=== PATIENT | male | born 1950 | race Caucasian/White ===

== ENCOUNTER 2019-01-01 10:00 | Day surgery (SDC) | payer OTHER ==
[~2019-01-01] VITALS: Ht 160 cm; Wt 73.1 kg
[2019-01-01] MEDS ORDERED: ASPI81TA52 PO (10:37)
[2019-01-01] MEDS ORDERED: AMLO2.5T78 PO (10:37)
[2019-01-01] MEDS ORDERED: ATOR40TA68 PO (10:37)
[2019-01-01] MEDS ORDERED: CLOP75TA27 PO (10:38)
[2019-01-01] MEDS ORDERED: FOLI-49 PO (10:38)
[2019-01-01] MEDS ORDERED: FURO20TA3 PO (10:38)
[2019-01-01] MEDS ORDERED: ESCI5TAB PO (10:38)
[2019-01-01] MEDS ORDERED: GABA300C16 PO (10:39)
[2019-01-01] MEDS ORDERED: LOSA50TA14 PO (10:40)
[2019-01-01] MEDS ORDERED: LISI40TA3 PO (10:40)
[2019-01-01] MEDS ORDERED: RANI150T5 PO (10:41)
[2019-01-01] MEDS ORDERED: METF500T24 PO (10:41)
[2019-01-01 10:42] VITALS: Ht 160 cm; Wt 73.1 kg
[2019-01-01] MEDS ORDERED: TEMA30CA PO (10:42)
[2019-01-01] MEDS ORDERED: TRAM50TA PO (10:42)
[2019-01-01 10:44] VITALS: BP 141/65; PULSE 57; RESP 16
[2019-01-01] MEDS ORDERED: ROPIVACAINE 0.5 % 30 ML VIAL ONE (11:20)
[2019-01-01] MEDS ORDERED: POLYMYXIN/BACITRACIN 1L IRRIG ONE (11:20)
== END 2019-01-01 13:00 | disposition home or self-care (01) ==
LOC: SDS 10:00
PROVIDERS: ATTEND Orthopaedic Surgery
DX: M13.871 Other specified arthritis, right ankle and foot (principal); Z53.8 Procedure and treatment not carried out for other reasons; Z79.02 Long term (current) use of antithrombotics/antiplatelets; I11.0 Hypertensive heart disease with heart failure; I50.32 Chronic diastolic (congestive) heart failure; E78.2 Mixed hyperlipidemia; E11.36 Type 2 diabetes mellitus with diabetic cataract; E11.51 Type 2 diabetes mellitus with diabetic peripheral angiopathy without gangrene; Z86.73 Personal history of transient ischemic attack (TIA), and cerebral infarction without residual deficits; Z87.891 Personal history of nicotine dependence
CPT/HCPCS: 80053; 82962; 85025; 85610; 85730; J2795

== ENCOUNTER 2019-01-09 05:37 | Inpatient (IN) | payer OTHER ==
[2019-01-09] VITALS (28 sets, daily range): BP systolic 73–133; BP diastolic 43–62; PULSE 60–84; RESP 16–27; Ht 165.1 cm; Wt 72.2 kg
[~2019-01-09] VITALS: Ht 165.1 cm; Wt 72.2 kg
[~2019-01-09 05:37] MED LIST: AMLO2.5T78 PO; ASPI81TA52 PO; ATOR40TA68 PO; CLOP75TA27 PO; ESCI5TAB PO; FOLI-49 PO; FURO20TA3 PO; GABA300C16 PO; LISI40TA3 PO; LOSA50TA14 PO; METF500T24 PO; RANI150T5 PO; TEMA30CA PO; TRAM50TA PO
[2019-01-09] MEDS ORDERED: DESFLURANE 15 MIN ONE (07:00)
[2019-01-09] MEDS ORDERED: HYDR-3609 ORAL (07:16)
--- NOTE | 2019-01-09 07:20 | PREAC ---
Date/Time of Note Date/Time of Note DATE: 01/09/19 TIME: 07:17 Anesthesia Eval and Record Evaluation Time Pre-Procedure Interview DATE: 01/09/19 TIME: 07:17 Age 68 Sex male NPO: 8 hrs (arthritis) Preoperative diagnosis right ankle arthritis Planned procedure r ankle arthrodesis graft Past Medical History Past Medical History: Includes Cardio: HTN, CAD, CABG Endo: Diabetes Surgery & Anesthesia Issues No known issue Meds Anticoagulation: Yes (stopped 8 days ago) Beta Luke within 24 hr: No Reason Beta Luke not given: Pt. not on B-Luke Reported Medications Hydrocodone/Acetaminophen (Hydrocodone-Acetamin 10-325 mg) 1 Each Tablet, 1 TAB ORAL Q6 PRN for PAIN LEVEL 7-10 01/09/19 Tramadol Hcl* (Ultram*) 50 Mg Tablet, 50 MG PO Q6H PRN for PAIN, TAB 01/01/19 Temazepam* (Temazepam*) 30 Mg Capsule, 30 MG PO HS PRN for INSOMNIA, CAP 01/01/19 Ranitidine Hcl* (Ranitidine Hcl*) 150 Mg Tablet, 150 MG PO Q12, #60 TAB 01/01/19 Metformin Hcl* (Metformin Hcl*) 500 Mg Tablet, 500 MG PO WITH BREAKFAST DINNE, #60 TAB 01/01/19 Losartan Potassium* (Losartan Potassium*) 50 Mg Tablet, 50 MG PO BID, TAB 01/01/19 Lisinopril* (Lisinopril*) 40 Mg Tablet, 40 MG PO DAILY, #30 TAB 01/01/19 Gabapentin* (Gabapentin*) 300 Mg Capsule, 300 MG PO TID, #90 CAP 01/01/19 Furosemide* (Furosemide*) 20 Mg Tablet, 20 MG PO DAILY, #60 TAB 01/01/19 Folic Acid* (Folic Acid*) 1 Mg Tablet, 1 MG PO DAILY, TAB 01/01/19 Escitalopram Oxalate* (Lexapro*) 5 Mg Tablet, 5 MG PO DAILY, #30 TAB 01/01/19 Clopidogrel Bisulfate (Clopidogrel) 75 Mg Tablet, 75 MG PO DAILY, #30 TAB 01/01/19 Atorvastatin* (Atorvastatin*) 40 Mg Tablet, 40 MG PO QHS, #30 TAB 01/01/19 Aspirin (Low Dose Aspirin) 81 Mg Tablet.dr, 81 MG PO DAILY, #30 TAB 4/3/19 Amlodipine Besylate* (Amlodipine Besylate*) 2.5 Mg Tablet, 2.5 MG PO DAILY, #30 TAB 01/01/19 Meds reviewed: Yes Allergies Coded Allergies: No Known Allergy (Unverified , 01/09/19) Allergies Reviewed: Yes Labs/Studies Labs Reviewed: Reviewed by anesthesiologist Result Diagram: 01/09/19 0600 01/09/19 0600 Laboratory Tests 01/09/19 06:00 test: N/A Studies: ECG (sr), CXR (nl) Pre-procedure Exam Last vitals Vital Signs Date Temp Pulse Resp B/P (MAP) Pulse Ox O2 O2 Flow FiO2 Time Delivery Rate 01/09/19 97.1 60 18 107/61 99 Room Air 06:16 (76) Airway: Adequate mouth opening Mallampati: Mallampati I Teeth: Abnormal (denture) Lung: Normal Heart: Normal ASA Physical Status ASA physical status: 3 Emergency: None Planned Anesthetic General/MAC: ETT Nerve block: Sciatic (right) Planned Pain Management Parenteral pain med Pre-operative Attestations Prior to commencing anesthesia and surgery, the patient was re-evaluated, there was verification of: *The patient's identity *The results of appropriate recent lab work and preoperative vital signs *The above evaluation not changing prior to induction *Anesthetic plan, risk benefits, alternative and complications discussed with patient/family; questions answered; patient/family understands, accepts and wishes to proceed. CHINMAY GASTON MD Jan 09, 2019 07:20
[2019-01-09] MEDS ORDERED: ROCURONIUM 50 MG INJ ONE ×2 (07:23→11:24)
[2019-01-09] MEDS ORDERED: MIDAZOLAM 1 MG/ML 2 ML INJ ONE (07:23)
[2019-01-09] MEDS ORDERED: CEFAZOLIN 1 GM INJ ONE (07:23)
[2019-01-09] MEDS ORDERED: PROPOFOL 20 ML ONE (07:23)
[2019-01-09] MEDS ORDERED: METOCLOPRAMIDE 10 MG INJ ONE (07:24)
[2019-01-09] MEDS ORDERED: ONDANSETRON 4 MG INJ ONE (07:24)
[2019-01-09] MEDS ORDERED: ROPIVACAINE 0.5 % 30 ML VIAL ONE ×2 (07:24→07:32)
[2019-01-09] MEDS ORDERED: FENTAnyl 50 MCG/ML VIAL ONE (07:26)
[2019-01-09] MEDS ORDERED: POLYMYXIN/BACITRACIN 1L IRRIG ONE ×2 (07:31→09:45)
--- NOTE | 2019-01-09 07:43 | HPN ---
Date/Time of Note Date/Time of Note DATE: 01/09/19 TIME: 07:42 Interval H&P Admission Note Pt. seen H&P reviewed: No system changes Patient has been off Plavix for 1 week YOSI MARAVILLA MD Jan 09, 2019 07:43
[2019-01-09] MEDS ORDERED: CEFAZOLIN 1 GM INJ IV SCH (08:00)
[2019-01-09] MEDS ORDERED: DIPHENHYDRAMINE 25 MG CAP PO PRN (08:00)
[2019-01-09] MEDS ORDERED: SODIUM CL BACTERIOSTATIC 30 ML INJ ONE (08:03)
[2019-01-09] MEDS ORDERED: HEPARIN 1000 UNITS/ML 10 ML INJ ONE (08:04)
[2019-01-09] MEDS ORDERED: EPHEDrine SULFATE 50 MG/5 ML SYG IV PRN (08:30)
[2019-01-09] MEDS ORDERED: hydrALAzine 20 MG INJ IV PRN (08:30)
[2019-01-09] MEDS ORDERED: LABETALOL HCL 20MG INJ IV PRN (08:30)
[2019-01-09] MEDS ORDERED: MEPERIDINE 25 MG INJ IV PRN (08:30)
[2019-01-09] MEDS ORDERED: ALBUTEROL 0.083% (NEB) 2.5 MG/3 ML AMP HHN PRN (08:30)
[2019-01-09] MEDS ORDERED: ONDANSETRON 4 MG INJ IV PRN (08:30)
[2019-01-09] MEDS ORDERED: DIPHENHYDRAMINE 50 MG INJ IV PRN (08:30)
[2019-01-09] MEDS ORDERED: OXYCODONE/ACETAMINOPHEN (5/325) TAB PO PRN ×2 (08:30)
[2019-01-09] MEDS ORDERED: FENTAnyl 50 MCG/ML VIAL IV PRN ×3 (08:30)
[2019-01-09] MEDS ORDERED: HYDROmorphONE 1 MG/5 ML IV SYRINGE IV PRN ×3 (08:30)
[2019-01-09] MEDS ORDERED: HYDROmorphONE 2 MG/ML SYG ONE (08:52)
[2019-01-09] MEDS ORDERED: hydrALAzine 20 MG INJ ONE (10:53)
[2019-01-09] MEDS ORDERED: EPHEDrine 50 MG INJ ONE ×2 (11:36→11:43)
[2019-01-09] MEDS ORDERED: CHOLECALCIFEROL 2,000 UNIT CAP PO SCH (12:30)
[2019-01-09] MEDS: GABAPENTIN 300 MG CAP PO SCH ×2 (14:22→21:04)
[2019-01-09] MEDS: ASCORBIC ACID 500 MG TAB PO SCH (14:23)
[2019-01-09] MEDS: oxyCODONE 5 MG TAB PO SCH ×3 (14:23→21:00)
[2019-01-09] MEDS: CHOLECALCIFEROL 1,000 UNIT TAB PO SCH (14:50)
[2019-01-09] MEDS ORDERED: DEXTROSE 50% 50 ML SYRINGE IV PRN ×2 (15:00)
[2019-01-09] MEDS ORDERED: GLUCAGON 1 MG INJ IM PRN (15:00)
[2019-01-09] MEDS ORDERED: GLUCOSE GEL 15 GRAM TUBE PO PRN ×2 (15:00)
[2019-01-09] MEDS ORDERED: GLUCOSE GEL 15 GRAM TUBE BUCCAL PRN (15:00)
[2019-01-09] MEDS: CEFAZOLIN 1 GM/50 ML (PMX) 50 ML IVPB SCH ×2 (15:21→23:49)
[2019-01-09] MEDS: ASPIRIN (EC) 81 MG TAB PO SCH (15:22)
[2019-01-09] MEDS: HYDROmorphONE 1 MG/ML SYG IV PRN ×2 (15:23→21:03)
[2019-01-09] MEDS ORDERED: ZOLPIDEM 5 MG TAB PO PRN (15:30)
[2019-01-09] MEDS: ONDANSETRON 4 MG INJ IV PRN (15:30)
--- NOTE | 2019-01-09 15:49 | CONS ---
DATE OF ADMISSION: 01/09/2019 DATE OF CONSULTATION: 01/09/2019 INDICATION FOR ADMISSION: Elective right ankle arthrodesis with autograft for severe right ankle arthritis. HISTORY OF PRESENTING COMPLAINT: A 68-year-old male with a past medical history of hypertension, coronary artery disease status post CABG in the past, congestive heart failure as well as diabetes, who was brought in for an elective right ankle arthrodesis by orthopedic surgery due to severe right ankle osteoarthritis. We are being consulted for management of his medical problems. At this time, the patient tolerated surgery very well. Vitals are stable, but he is complaining of some left-sided chest pain. The patient also has a hx of CAD s/p CABG. He also has a history of anxiety. He has no fever, nausea, cough. No shortness of breath. Denies abdominal pain, hematuria, melenotic stools or dysuria. He was in his normal state of health prior to admission. PAST MEDICAL HISTORY: 1. Coronary artery disease status post CABG. The patient is also on Plavix, which tells me he probably has a stent. 2. Dyslipidemia. 3. Hypertension. 4. Diabetes mellitus. PAST SURGICAL HISTORY: He had foot surgery. ALLERGIES: NO KNOWN DRUG ALLERGIES. SOCIAL HISTORY: He did drink a lot of alcohol in the past but has quit many years ago. Occasional tobacco use. Denies illicit drug use. PHYSICAL EXAMINATION: VITAL SIGNS: Temperature 98.2, pulse is 72, respirations 17, blood pressure 103/47, saturations 100% on oxygen via nasal cannula at 2 liters per minute. GENERAL: Alert, oriented, in no distress. HEENT: Head is normocephalic. Pupils are equal and reactive. NECK: Supple. CHEST: Clear. Diminished breath sounds bilaterally. CARDIOVASCULAR: S1 and S2. No added sounds or murmurs. ABDOMEN: Soft, nontender, nondistended. EXTREMITIES: Right lower extremity is encased and bandaged all the way from his toes to the mid leg and splint. Left lower extremity is unremarkable. SKIN: No other skin findings. LABORATORY VALUES: Complete metabolic profile was completely normal. Hematology has mild anemia of 11 that is not really impressive. Urinalysis is not suggestive of UTI. Coag profile is unremarkable. IMAGING: We have an ankle x-ray from the surgery. ASSESSMENT: A 68-year-old male status post elective right ankle arthrodesis for severe right osteoarthritis for whom we are consulted for management of his medical problems: 1. Chest pain, left-sided. I doubt that this is cardiac in origin, but just to be on the safe side based on his history, I will do x-ray. I will also get EKG. I will give him some morphine to see how he does. Continue intranasal oxygen at this time. We may consider just doing a 2D echo to see his cardiac status. 2. History of coronary artery disease, status CABG, also on Plavix therapy. Continue home aspirin and Plavix. Nitroglycerin also as needed. 3. Hypertension with good control. Continue home meds. 4. Chronic depression and anxiety. Continue home Lexapro. 5. History of congestive heart failure. Continue home Lasix and all of his meds. The patient is also on losartan. 6. Diabetes mellitus type 2. Continue sliding scale insulin, diabetic diet and titrate medications as indicated. Further interventions will depend on the patient's clinical course. I have discussed this plan of care with the patient and his family at bedside. Questions have been answered. We will follow the patient with you. Dictated By: JORGE BOLANOS MD BA/NTS Conf#: [id number] DID#: [id number] CC: YOSI MARAVILLA MD;*EndCC* MTDD
--- NOTE | 2019-01-09 17:13 | PAC ---
Date/Time of Note Date/Time of Note DATE: 01/09/19 TIME: 17:12 Post-Anesthesia Notes Post-Anesthesia Note Last documented vital signs Vital Signs Date Temp Pulse Resp B/P (MAP) Pulse Ox O2 O2 Flow FiO2 Time Delivery Rate 01/09/19 98.2 72 17 103/47 100 Nasal 13:17 (65) Cannula 01/09/19 98.2 12:12 Activity: WNL Respiratory function: WNL Cardiovascular function: WNL Mental status: Baseline Pain reasonably controlled: Yes Hydration appropriate: Yes Nausea/Vomiting absent: No CHINMAY GASTON MD Jan 09, 2019 17:13
--- NOTE | 2019-01-09 17:20 | QN ---
Documentation Job number: [id number] YOSI MARAVILLA MD Jan 09, 2019 17:20
[2019-01-09] MEDS: metFORMIN 500 MG TAB PO SCH (17:54)
[2019-01-09] MEDS: ACCU-CHEK XX SCH ×2 (17:54→21:16)
[2019-01-09] MEDS: INSULIN ASPART [NOVOLOG] 3 ML PEN SC SCH ×2 (17:57→21:16)
[2019-01-09] MEDS ORDERED: NITROGLYCERIN (SL) 0.4 MG TAB SL PRN (20:00)
[2019-01-09] MEDS: ATORVASTATIN 40 MG TAB PO SCH (21:04)
[2019-01-09] MEDS: RANITIDINE 150 MG TAB PO SCH (21:04)
[2019-01-09] MEDS: LOSARTAN 50 MG TAB PO SCH (21:04)
--- NOTE | 2019-01-10 00:31 | CONS ---
DATE OF ADMISSION: 01/09/2019 DATE OF CONSULTATION: 01/09/2019 REASON FOR CONSULTATION: Chest pain, assess for acute coronary syndrome. REQUESTING PHYSICIAN: Dr. Wilder, from the hospital service. HISTORY OF PRESENT ILLNESS: The patient is a very pleasant 68-year-old male with history of coronary artery disease, status post coronary artery bypass graft surgery in 2017, dyslipidemia, hypertension , diabetes mellitus. 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 Postoperatively, the patient had complaints of left-sided chest pain, describes a pressure-like sensation and subsequently has been admitted to the floor and a cardiac consultation was requested. The patient currently states chest pain is improved. PAST MEDICAL HISTORY: As above in HPI. MEDICATIONS CURRENTLY IN HOSPITAL: 1. Norvasc 2.5 mg. 2. Lexapro 5 mg daily. 3. Folic acid 1 mg daily. 4. Lasix 20 daily. 5. Lipitor 40 mg at bedtime. 6. Cozaar 50 mg p.o. b.i.d. 7. Zantac 150 mg p.o. q. 12h. 8. Insulin sliding scale. 9. Metformin 500 mg b.i.d. 10. Cefazolin q.8h. IV. 11. Ambien. 12. Aspirin 81 mg daily. 13. Vitamin C and D. 14. Oxycodone 5 q.4h. 15. Gabapentin 300 mg p.o. t.i.d. ALLERGIES: NO KNOWN DRUG ALLERGIES. SOCIAL HISTORY: No tobacco, ETOH or illicit drug use. FAMILY HISTORY: No history of sudden cardiac or early CAD. REVIEW OF SYSTEMS: As above in HPI. CONSTITUTIONAL: No fevers, chills. PULMONARY: No current shortness of breath. CARDIOVASCULAR: Chest pain, now resolved. GASTROINTESTINAL: No vomiting. GENITOURINARY: No hematuria. MUSCULOSKELETAL: Degenerative joint disease. Status post right ankle arthrodesis. PSYCHIATRIC: Positive history of depression, anxiety by medications. NEUROLOGICAL: No documented CVA. ENDOCRINE: Diabetes mellitus. PHYSICAL EXAMINATION: VITAL SIGNS: Temperature of 97.7, blood pressure most recently 106/52, pulse 77, respiratory rate 18 , satting 98% on 2 liters. GENERAL: The patient is alert, awake, in no acute distress. NECK: JVP approximately 8 to 9 cm of water. CHEST: Fair air movement throughout. HEART: Regular rate and rhythm. Normal S1, S2, I/ systolic murmur, nondisplaced PMI. ABDOMEN: Positive bowel sounds, soft. EXTREMITIES: No significant left lower extremity pitting edema. 1+ pulses bilateral posterior tibia l. LABORATORIES: As above in HPI with most recently white count 10.6, hemoglobin 13.6, platelet count 2 15. Sodium 143, potassium 4.3, creatinine 0.8, BUN 20, AST 22, ALT 27. INR of 1. UA borderline. IMAGING STUDIES: The patient underwent an ankle x-ray, which revealed intraoperative imaging of the right ankle with images demonstrated fusion of the tibiotalar joint with anterior plate and multiple screws. ECG: No electrocardiograms for my review at this time. IMPRESSION: 1. Chest pain, assess for acute coronary syndrome with the patient's chest pain resolved at this lena e. 2. Coronary artery disease, status post coronary artery bypass graft surgery in 2017. 3. Hypertension, under reasonable control. In fact, lowering dizziness and weakness. 4. Postoperative status post ankle arthrodesis. 5. Diabetes mellitus. 6. Psychiatric disorder. 7. Dyslipidemia. RECOMMENDATIONS: 1. At this time, we would completely rule out for myocardial infarction to ensure the patient's ches t pain was not due to an acute coronary syndrome, acute myocardial infarction. 2. We would check serial EKGs. EKG now, EKG in morning, EKG for any complaints of chest pain or velasquez nge in rhythm. 3. We will check a 2D echo for switch to further assess the patient's ejection fraction, wall motion and major abnormalities. 4. Continue the patient's aspirin at this time, resume for prevention of cardiovascular events and d iscontinue the patient's baseline antihypertensives as tolerated at this time with Cozaar and Norvasc possible need to decrease dose and continue the patient's Lasix for now following closely. We will check a BNP to further assess current volume status and continue the patient's statin and adjust it a ccording to a fasting lipid panel, and recheck. 5. Follow the patient's blood sugars closely. 6. Continue the patient's prophylactic antibiotics. 7. Pain control. Thank you for allowing me to take part in the care of this patient. I will continue to follow along very closely with you, with recommendations to be made as the patient progresses through his [facility]. Dictated By: HARSH MAYA/CRISTOBAL Conf#: [id number] DID#: [id number] CC: TITO WILDER; JORGE BOLANOS MD; YOSI MARAVILLA MD;*EndCC*
[2019-01-10] MEDS: oxyCODONE 5 MG TAB PO SCH ×6 (01:34→21:00)
[2019-01-10] MEDS: ACCU-CHEK XX SCH ×5 (01:39→21:00)
[2019-01-10] MEDS: HYDROmorphONE 1 MG/ML SYG IV PRN ×5 (04:02→21:11)
--- NOTE | 2019-01-10 07:14 | OPR ---
DATE OF OPERATION: SURGEON: Yosi Titus MD FINANCIAL CONSULTANT: MARICEL Rivera PREOPERATIVE DIAGNOSIS: Right ankle arthritis. POSTOPERATIVE DIAGNOSIS: Right ankle arthritis. PROCEDURES: 1. Right iliac crest bone autograft harvest. 2. Right iliac crest bone marrow aspirate concentrate harvest. 3. Right ankle arthrodesis with both allograft and autograft. 4. Placement of amniotic membrane 5. Application of incisional wound VAC is ANESTHESIA TYPE: General with popliteal block. ANESTHESIOLOGIST: Allie Melo MD TOURNIQUET TIME: 130 minutes at 250 mmHg. IMPLANTS: An Arthrex anterior arthrodesis plate with ArthroCell and AlloSync and amnion as well as the Arthrex Yassine bone marrow aspirate concentrate. COMPLICATIONS: None. INDICATIONS: The patient is 66-year-old gentleman with significant pain to the right ankle with significant osteoarthritis of the ankle joint that is posttraumatic in nature. The patient understood the risks and benefits of surgery and that he possibly needs surgery in the future. Risk Note: Patient was explained the risks and benefits of surgery and the patient's lower elwha language including not limited to infection, bleeding, injury to blood vessels, nerves, ligaments or tendons. Risks of anesthesia, deep vein thrombosis and need for reduce future surgery. Patient acknowledged these risk by signing the surgical consent form. DESCRIPTION OF PROCEDURE: The patient was met in the preoperative holding area and the correct operative extremity was marked and confirmed with both the patient and consent. The patient was brought to the operative theater and placed supine on the operative table, given preoperative antibiotics and preoperative anesthesia. The patient was then prepped and draped in the normal sterile fashion. A timeout was taken and all parties in the room agreed this was the correct patient, extremity and procedure. Attention was then turned to the iliac crest in which the incision made just proximal to the ASIS and care was taken to avoid any injury to the neurovascular structures. A bone marrow aspirate concentrate was taken using a Jamshidi. Approximately 60 mL were taken and sent off for centrifugation. I then using the Acumed bone graft harvester size 8 and took a substantial amount of iliac crest bone autograft and iliac crest for future use in the ankle. The wound was irrigated and then closed with 4-0 Monocryl and Steri-Strips and Tegaderm. Attention was then turned to the right ankle. Incision was made in typical anterior fashion beginning at interval between the tibialis anterior and hallucis longus. Incision was brought down anteriorly and extensor hallucis longus sheath was then incised. The tibialis anterior was retracted medially and the neurovascular structures were protected and retracted and protected throughout the case. Subsequently at this time, substantial osteoarthritis was seen throughout the ankle and synovitis sent for pathology. Loose bodies were removed. The ankle joint was then debrided of all cartilage and denuded thoroughly both medial and lateral gutters as over the tibial plafond and the talar dome. Once this was done, it was then irrigated thoroughly and then packed with a 2-0 drill bit and then packed with both allograft and autograft mixed with bone marrow aspirate concentrate and then compressed and held in compression both in neutral as well as dorsiflexion, plantar flexion as well as slight valgus and slight external rotation. The anterior plate was then placed and fixated and locked locked distally first, followed by fixed the oblong hole proximally for compression, followed by a lag screw home run screw from anterior to posterior, followed by locking screws over the tibia. It was shown to be excellent compression both in AP, oblique and lateral position and then the wound was irrigated and closed in layers with the amniotic membrane placed over the ankle followed by secondary closure with 2-0 Vicryl, followed by amniotic membrane placement followed by subdermal closure with 3-0 Monocryl followed by skin closure. There was tensionless with a 3-0 nylon in vertical mattress fashion. The wound was then dressed with a Prevena wound VAC and placed in a well-padded short leg splint in the neutral position. At the end of the case, all sponge and needle counts were correct. The patient was taken to PACU in a stable condition. The patient will be nonweightbearing for at least the next 6 to 8 weeks and will begin DVT prophylaxis for the next 6 weeks per the primary care and cardiology service. Dictated By: YOSI BYERS/CRISTOBAL Conf#: [id number] DID#: [id number] MTDD
[2019-01-10 07:25] VITALS: BP 122/77; PULSE 85; RESP 18
[2019-01-10] MEDS: INSULIN ASPART [NOVOLOG] 3 ML PEN SC SCH ×4 (07:50→21:00)
[2019-01-10] MEDS: CEFAZOLIN 1 GM/50 ML (PMX) 50 ML IVPB SCH ×2 (08:16→15:40)
[2019-01-10] MEDS: RANITIDINE 150 MG TAB PO SCH ×2 (08:32→21:08)
[2019-01-10] MEDS: metFORMIN 500 MG TAB PO SCH ×2 (08:32→17:54)
[2019-01-10] MEDS: LOSARTAN 50 MG TAB PO SCH ×2 (08:33→21:23)
[2019-01-10] MEDS: ASCORBIC ACID 500 MG TAB PO SCH (08:33)
[2019-01-10] MEDS: GABAPENTIN 300 MG CAP PO SCH ×3 (08:33→21:07)
[2019-01-10] MEDS: ASPIRIN (EC) 81 MG TAB PO SCH (08:33)
[2019-01-10] MEDS: ESCITALOPRAM 10 MG TAB PO SCH (08:48)
[2019-01-10] MEDS: FOLIC ACID 1 MG TAB PO SCH (08:48)
[2019-01-10] MEDS: CHOLECALCIFEROL 1,000 UNIT TAB PO SCH (08:48)
[2019-01-10] MEDS: AMLODIPINE 2.5 MG TAB PO SCH (08:49)
[2019-01-10] MEDS: FUROSEMIDE 20 MG TAB PO SCH (08:49)
[2019-01-10] MEDS ORDERED: CLOPIDOGREL 75 MG TAB PO SCH (09:00)
[2019-01-10] MEDS: ONDANSETRON 4 MG INJ IV PRN (10:23)
--- NOTE | 2019-01-10 11:16 | PN ---
Date/Time of Note Date/Time of Note DATE: 01/10/19 TIME: 11:07 Assessment/Plan VTE Prophylaxis Risk score (from Nsg)>0 risk: 2 SCD applied (from Nsg): Yes Pharmacological prophylaxis: heparin Lines/Catheters IV Catheter Type (from Nrsg): Peripheral IV Assessment/Plan Hospital Course A 68-year-old male status post elective right ankle arthrodesis for severe right osteoarthritis for whom we are consulted for management of his medical problems: 1. Chest pain, left-sided: resolved -ekg reviewed, echo report pending, no further intervention for now, likely anxiety related 2. History of coronary artery disease, status CABG, was also on Plavix therapy. -Continue home aspirin only for now, per Ortho, can resume Plavix 5 days after surgery. Nitroglycerin also as needed. 3. Hypertension with good control. Continue home meds. 4. Chronic depression and anxiety. Continue home Lexapro. 5. History of congestive heart failure. Continue home Lasix and all of his meds. The patient is also on losartan. 6. Diabetes mellitus type 2. Continue sliding scale insulin, diabetic diet and titrate medications as indicated. 7. Hypomagnesemia: replete 8. Urinary retention: post op, patient did eventually void on his own, continue monitoring for now DVT Prophylaxis : Patient was on dual antiplatelet therapy for coronary artery disease, but is currently only on baby aspirin. He is high risk for thrombus formation. We will add heparin for DVT prophylaxis. Further interventions will depend on the patient's clinical course. We will follow the patient with you. Result Diagram: 01/10/19 0439 01/10/19 0439 Results 24hrs Laboratory Tests Test 01/09/19 17:50 01/09/19 21:14 01/10/19 00:25 01/10/19 01:38 Bedside Glucose 157 182 127 Troponin I < 0.012 Test 01/10/19 04:20 01/10/19 04:27 01/10/19 04:39 01/10/19 08:30 Troponin I < 0.012 Hemoglobin A1c 6.5 H White Blood Count 9.5 Red Blood Count 3.73 #L Hemoglobin 10.9 L Hematocrit 33.9 L Mean Corpuscular 90.9 Volume Mean Corpuscular 29.2 Hemoglobin Mean Corpuscular 32.2 Hemoglobin Concent Red Cell 13.3 Distribution Width Platelet Count 182 Mean Platelet Volume 10.3 Immature 0.400 Granulocytes % Neutrophils % 72.0 Lymphocytes % 13.3 L Monocytes % 13.4 H Eosinophils % 0.6 Basophils % 0.3 Nucleated Red Blood 0.0 Cells % Immature 0.040 H Granulocytes # Neutrophils # 6.8 Lymphocytes # 1.3 Monocytes # 1.3 H Eosinophils # 0.1 Basophils # 0.0 Nucleated Red Blood 0.0 Cells # Sodium Level 137 Potassium Level 4.0 Chloride Level 104 Carbon Dioxide Level 26 Anion Gap 7 Blood Urea Nitrogen 18 Creatinine 0.69 Est Glomerular > 60 Filtrat Rate mL/min Glucose Level 130 Calcium Level 8.5 Phosphorus Level 4.0 Magnesium Level 1.2 L Triglycerides Level 47 Cholesterol Level 75 L LDL Cholesterol, 31 Calculated HDL Cholesterol 35 Cholesterol/HDL 2.1 Ratio Bedside Glucose 123 Subjective 24 Hr Interval Summary Free Text/Dictation Unable to urinate by himself this morning with 600 mL's of urine seen on bladder scan Exam/Review of Systems Exam Vitals Vital Signs Date Temp Pulse Resp B/P (MAP) Pulse Ox O2 O2 Flow FiO2 Time Delivery Rate 01/10/19 98.0 85 18 122/77 96 07:25 (92) 01/09/19 Nasal 23:39 Cannula 01/09/19 2.0 20:35 Intake and Output 01/09/19 01/09/19 01/10/19 1414:59 22:59 06:59 IntakeIntake Total 410 ml 500 ml OutputOutput Total 50 ml 350 ml 500 ml BalanceBalance -50 ml 60 ml 0 ml Exam GENERAL: Alert, oriented, in no distress. HEENT: Head is normocephalic. Pupils are equal and reactive. NECK: Supple. CHEST: Clear. Diminished breath sounds bilaterally. CARDIOVASCULAR: S1 and S2. No added sounds or murmurs. ABDOMEN: Soft, nontender, nondistended. EXTREMITIES: Right lower extremity is encased and bandaged all the way from his toes to the mid leg and splint. Left lower extremity is unremarkable. SKIN: No other skin findings. Results Results 24hrs Laboratory Tests Test 01/09/19 17:50 01/09/19 21:14 01/10/19 00:25 01/10/19 01:38 Bedside Glucose 157 182 127 Troponin I < 0.012 Test 01/10/19 04:20 01/10/19 04:27 01/10/19 04:39 01/10/19 08:30 Troponin I < 0.012 Hemoglobin A1c 6.5 H White Blood Count 9.5 Red Blood Count 3.73 #L Hemoglobin 10.9 L Hematocrit 33.9 L Mean Corpuscular 90.9 Volume Mean Corpuscular 29.2 Hemoglobin Mean Corpuscular 32.2 Hemoglobin Concent Red Cell 13.3 Distribution Width Platelet Count 182 Mean Platelet Volume 10.3 Immature 0.400 Granulocytes % Neutrophils % 72.0 Lymphocytes % 13.3 L Monocytes % 13.4 H Eosinophils % 0.6 Basophils % 0.3 Nucleated Red Blood 0.0 Cells % Immature 0.040 H Granulocytes # Neutrophils # 6.8 Lymphocytes # 1.3 Monocytes # 1.3 H Eosinophils # 0.1 Basophils # 0.0 Nucleated Red Blood 0.0 Cells # Sodium Level 137 Potassium Level 4.0 Chloride Level 104 Carbon Dioxide Level 26 Anion Gap 7 Blood Urea Nitrogen 18 Creatinine 0.69 Est Glomerular > 60 Filtrat Rate mL/min Glucose Level 130 Calcium Level 8.5 Phosphorus Level 4.0 Magnesium Level 1.2 L Triglycerides Level 47 Cholesterol Level 75 L LDL Cholesterol, 31 Calculated HDL Cholesterol 35 Cholesterol/HDL 2.1 Ratio Bedside Glucose 123 Medications Medication Current Medications Ondansetron HCl (Zofran Inj) 4 mg Q4H PRN IV NAUSEA AND/OR VOMITING Last administered on 01/10/19at 10:23; Admin Dose 4 MG; Start 01/09/19 at 08:00 Diphenhydramine HCl (Benadryl) 25 mg Q4H PRN PO ITCHING; Start 01/09/19 at 08:00 Oxycodone HCl (Roxicodone) 5 mg Q4 PO Last administered on 01/10/19at 08:32; Admin Dose 5 MG; Start 01/09/19 at 13:00 Hydromorphone HCl (Dilaudid) 1 mg Q3H PRN IV SEVERE PAIN LEVEL 7-10 Last administered on 01/10/19at 10:05; Admin Dose 1 MG; Start 01/09/19 at 08:00 Gabapentin (Neurontin) 300 mg TID PO Last administered on 01/10/19at 08:33; Admin Dose 300 MG; Start 01/09/19 at 13:00 Cefazolin Sodium 50 ml @ 100 mls/hr Q8H IVPB Last administered on 01/10/19 08:16; Admin Dose 100 MLS/HR; Start 01/09/19 at 16:00; Stop 01/11/19 at 08:29 Ascorbic Acid (Vitamin C) 1,000 mg DAILY PO Last administered on 01/10/19 08:33; Admin Dose 1,000 MG; Start 01/09/19 at 14:00 Cholecalciferol (Vitamin D) 5,000 unit DAILY PO Last administered on 01/10/19 08:48; Admin Dose 5,000 UNIT; Start 01/09/19 at 14:00 Diagnostic Test (Pha) (Accu-Chek) 1 ea 02 XX Last administered on 01/10/19 01:39; Admin Dose 1 EA; Start 01/10/19 at 02:00 Insulin Aspart (Novolog Insulin Pen) NOVOLOG *MILD* ALGORITHM WITH MEALS BEDTIME SC Last administered on 01/09/19 21:16; Admin Dose 1 UNIT; Start 01/09/19 at 17:55 Amlodipine Besylate (Norvasc) 2.5 mg DAILY PO Last administered on 01/10/19 08:49; Admin Dose 2.5 MG; Start 01/10/19 at 09:00 Aspirin (Halfprin) 81 mg DAILY PO Last administered on 01/10/19 08:33; Admin Dose 81 MG; Start 01/09/19 at 15:00 Atorvastatin Calcium (Lipitor) 40 mg QHS PO Last administered on 01/09/19 21:04; Admin Dose 40 MG; Start 01/09/19 at 21:00 Escitalopram Oxalate (Lexapro) 5 mg DAILY PO Last administered on 01/10/19 08:48; Admin Dose 5 MG; Start 01/10/19 at 09:00 Folic Acid (Folic Acid) 1 mg DAILY PO Last administered on 01/10/19 08:48; Admin Dose 1 MG; Start 01/10/19 at 09:00 Furosemide (Lasix) 20 mg DAILY PO Last administered on 01/10/19 08:49; Admin Dose 20 MG; Start 01/10/19 at 09:00 Losartan Potassium (Cozaar) 50 mg BID PO Last administered on 01/10/19 08:33; Admin Dose 50 MG; Start 01/09/19 at 21:00 Metformin HCl (Glucophage) 500 mg WITH BREAKFAST DINNE PO Last administered on 01/10/19at 08:32; Admin Dose 500 MG; Start 01/09/19 at 17:55 Ranitidine HCl (Zantac) 150 mg Q12 PO Last administered on 01/10/19at 08:32; Admin Dose 150 MG; Start 01/09/19 at 21:00 Zolpidem Tartrate (Ambien) 5 mg HS MAY REPEAT X 1 PRN PO INSOMNIA; Start 01/09/19 at 15:30 Diagnostic Test (Pha) (Accu-Chek) 1 ea AC MEALS AND BEDTIME XX Last administered on 01/10/19at 07:20; Admin Dose 1 EA; Start 01/09/19 at 17:25 Miscellaneous Information 1 ea NOTE XX ; Start 01/09/19 at 15:00 Glucose (Glutose) 15 gm Q15M PRN PO DECREASED GLUCOSE; Start 01/09/19 at 15:00 Glucose (Glutose) 22.5 gm Q15M PRN PO DECREASED GLUCOSE; Start 01/09/19 at 15:00 Dextrose (D50w Syringe) 25 ml Q15M PRN IV DECREASED GLUCOSE; Start 01/09/19 at 15:00 Dextrose (D50w Syringe) 50 ml Q15M PRN IV DECREASED GLUCOSE; Start 01/09/19 at 15:00 Glucagon (Glucagen) 1 mg Q15M PRN IM DECREASED GLUCOSE; Start 01/09/19 at 15:00 Glucose (Glutose) 15 gm Q15M PRN BUCCAL DECREASED GLUCOSE; Start 01/09/19 at 15:00 Nitroglycerin (Nitroglycerin (Sl Tab) 0.4 Mg) 1 tab Q5M PRN SL ANGINA; Start 01/09/19 at 20:00 JORGE BOLANOS Jan 10, 2019 11:16
[2019-01-10] MEDS ORDERED: MAGNESIUM SULFATE 3 GM in DEXTROSE 5% 100 ML IVPB ONE (12:00)
[2019-01-10] MEDS: FINASTERIDE 5 MG TAB PO SCH (12:37)
[2019-01-10] MEDS ORDERED: ALFUZOSIN (SR) 10 MG TAB PO SCH (14:00)
--- NOTE | 2019-01-10 14:14 | RADRPT ---
Vent Rate: 82 bpm RR Interval: 0 msec GA Interval: 196 msec QRS Duration: 142 msec QT Interval: 430 msec QTC Interval: 502 msec P-R-T [place]: 37 - 6 - 20 degrees Normal sinus rhythm Right bundle branch block Abnormal ECG Electronically Signed By: Anderson Cardona
[2019-01-10 14:35] VITALS: BP 110/56; PULSE 83; RESP 18
--- NOTE | 2019-01-10 17:38 | CONS ---
Assessment/Plan Assessment/Plan Hospital Course (Demo Recall) 68-year-old male on 01/09/2019 underwent: 1. Right iliac crest bone autograft harvest. 2. Right iliac crest bone marrow aspirate concentrate harvest. 3. Right ankle arthrodesis with both allograft and autograft A urological consultation was requested today because the patient was not able to urinate and had urinary retention. Patient denies any prior history of urinary retention and has not been on any medication for his prostate at home prior to his surgery On the examination his abdomen is soft and there is no tenderness. The bladder did not appear distended. The external genitalia are normal. Rectal exam shows prostate to be soft and not enlarged. The impression is urinary retention most likely secondary to the effect of medications and the fact that he is in bedrest. Recommendation: We could continue him on Uroxatral and give him a low dose of Urecholine and monitor his voiding and his postvoid residual. Do straight cath for a postvoid residual of over 300 mL or if he does not void in the bladder volume is equal or more of 500 ml Consultation Date/Type/Reason Admit Date/Time Jan 09, 2019 at 12:49 Date of Consultation: Jan 10, 2019 Type of Consult Urology Reason for Consultation Postop urinary retention Requesting Provider: JORGE BOLANOS Date/Time of Note DATE: 01/10/19 TIME: 17:19 Hx of Present Illness 68-year-old male on 01/09/2019 underwent: 1. Right iliac crest bone autograft harvest. 2. Right iliac crest bone marrow aspirate concentrate harvest. 3. Right ankle arthrodesis with both allograft and autograft A urological consultation was requested today because the patient was not able to urinate and had urinary retention. Patient denies any prior history of urinary retention and has not been on any medication for his prostate at home prior to his surgery On the examination his abdomen is soft and there is no tenderness. The bladder did not appear distended. The external genitalia are normal. Rectal exam shows prostate to be soft and not enlarged. The impression is urinary retention most likely secondary to the effect of medications and the fact that he is in bedrest. Recommendation: We could continue him on Uroxatral and give him a low dose of Urecholine and monitor his voiding and his postvoid residual. Do straight cath for a postvoid residual of over 300 mL or if he does not void in the bladder volume is equal or more of 500 ml Constitutional: no complaints Eyes: no complaints ENT: no complaints Respiratory: no complaints; No shortness of breath Cardiovascular: chest pain (And that has cleared) Gastrointestinal: no complaints Genitourinary: No dysuria, No hematuria Musculoskeletal: no complaints Skin: no complaints Neurologic: no complaints Endocrine: no complaints Lymphatic: no complaints Psychological: no complaints Immunologic: no complaints Past Medical History Medical History: congestive heart failure, coronary artery disease, diabetes, hypertension, renal disease, other Home Meds Reported Medications Hydrocodone/Acetaminophen (Hydrocodone-Acetamin 10-325 mg) 1 Each Tablet, 1 TAB ORAL Q6 PRN for PAIN LEVEL 7-10 01/09/19 Tramadol Hcl* (Ultram*) 50 Mg Tablet, 50 MG PO Q6H PRN for PAIN, TAB 01/01/19 Temazepam* (Temazepam*) 30 Mg Capsule, 30 MG PO HS PRN for INSOMNIA, CAP 01/01/19 Ranitidine Hcl* (Ranitidine Hcl*) 150 Mg Tablet, 150 MG PO Q12, #60 TAB 01/01/19 Metformin Hcl* (Metformin Hcl*) 500 Mg Tablet, 500 MG PO WITH BREAKFAST DINNE, #60 TAB 01/01/19 Losartan Potassium* (Losartan Potassium*) 50 Mg Tablet, 50 MG PO BID, TAB 01/01/19 Lisinopril* (Lisinopril*) 40 Mg Tablet, 40 MG PO DAILY, #30 TAB 01/01/19 Gabapentin* (Gabapentin*) 300 Mg Capsule, 300 MG PO TID, #90 CAP 01/01/19 Furosemide* (Furosemide*) 20 Mg Tablet, 20 MG PO DAILY, #60 TAB 01/01/19 Folic Acid* (Folic Acid*) 1 Mg Tablet, 1 MG PO DAILY, TAB 01/01/19 Escitalopram Oxalate* (Lexapro*) 5 Mg Tablet, 5 MG PO DAILY, #30 TAB 01/01/19 Clopidogrel Bisulfate (Clopidogrel) 75 Mg Tablet, 75 MG PO DAILY, #30 TAB 01/01/19 Atorvastatin* (Atorvastatin*) 40 Mg Tablet, 40 MG PO QHS, #30 TAB 01/01/19 Aspirin (Low Dose Aspirin) 81 Mg Tablet.dr, 81 MG PO DAILY, #30 TAB 01/01/19 Amlodipine Besylate* (Amlodipine Besylate*) 2.5 Mg Tablet, 2.5 MG PO DAILY, #30 TAB 01/01/19 Medications Current Medications Ondansetron HCl (Zofran Inj) 4 mg Q4H PRN IV NAUSEA AND/OR VOMITING Last administered on 01/10/19 10:23; Admin Dose 4 MG; Start 01/09/19 at 08:00 Diphenhydramine HCl (Benadryl) 25 mg Q4H PRN PO ITCHING; Start 01/09/19 at 08:00 Oxycodone HCl (Roxicodone) 5 mg Q4 PO Last administered on 01/10/19 17:18; Admin Dose 5 MG; Start 01/09/19 at 13:00 Hydromorphone HCl (Dilaudid) 1 mg Q3H PRN IV SEVERE PAIN LEVEL 7-10 Last administered on 01/10/19 10:05; Admin Dose 1 MG; Start 01/09/19 at 08:00 Gabapentin (Neurontin) 300 mg TID PO Last administered on 01/10/19 12:37; Admin Dose 300 MG; Start 01/09/19 at 13:00 Cefazolin Sodium 50 ml @ 100 mls/hr Q8H IVPB Last administered on 01/10/19 15:40; Admin Dose 100 MLS/HR; Start 01/09/19 at 16:00; Stop 01/11/19 at 08:29 Ascorbic Acid (Vitamin C) 1,000 mg DAILY PO Last administered on 01/10/19 08:33; Admin Dose 1,000 MG; Start 01/09/19 at 14:00 Cholecalciferol (Vitamin D) 5,000 unit DAILY PO Last administered on 01/10/19 08:48; Admin Dose 5,000 UNIT; Start 01/09/19 at 14:00 Diagnostic Test (Pha) (Accu-Chek) 1 ea 02 XX Last administered on 01/10/19 01:39; Admin Dose 1 EA; Start 01/10/19 at 02:00 Insulin Aspart (Novolog Insulin Pen) NOVOLOG *MILD* ALGORITHM WITH MEALS BEDTIME SC Last administered on 01/09/19 21:16; Admin Dose 1 UNIT; Start 01/09/19 at 17:55 Amlodipine Besylate (Norvasc) 2.5 mg DAILY PO Last administered on 01/10/19 08:49; Admin Dose 2.5 MG; Start 01/10/19 at 09:00 Aspirin (Halfprin) 81 mg DAILY PO Last administered on 01/10/19 08:33; Admin Dose 81 MG; Start 01/09/19 at 15:00 Atorvastatin Calcium (Lipitor) 40 mg QHS PO Last administered on 01/09/19 21:04; Admin Dose 40 MG; Start 01/09/19 at 21:00 Escitalopram Oxalate (Lexapro) 5 mg DAILY PO Last administered on 01/10/19 08:48; Admin Dose 5 MG; Start 01/10/19 at 09:00 Folic Acid (Folic Acid) 1 mg DAILY PO Last administered on 01/10/19 08:48; Admin Dose 1 MG; Start 01/10/19 at 09:00 Furosemide (Lasix) 20 mg DAILY PO Last administered on 01/10/19 08:49; Admin Dose 20 MG; Start 01/10/19 at 09:00 Losartan Potassium (Cozaar) 50 mg BID PO Last administered on 01/10/19 08:33; Admin Dose 50 MG; Start 01/09/19 at 21:00 Metformin HCl (Glucophage) 500 mg WITH BREAKFAST DINNE PO Last administered on 01/10/19 08:32; Admin Dose 500 MG; Start 01/09/19 at 17:55 Ranitidine HCl (Zantac) 150 mg Q12 PO Last administered on 01/10/19 08:32; Admin Dose 150 MG; Start 01/09/19 at 21:00 Zolpidem Tartrate (Ambien) 5 mg HS MAY REPEAT X 1 PRN PO INSOMNIA; Start 01/09/19 at 15:30 Diagnostic Test (Pha) (Accu-Chek) 1 ea AC MEALS AND BEDTIME XX Last administered on 01/10/19 11:10; Admin Dose 1 EA; Start 01/09/19 at 17:25 Miscellaneous Information 1 ea NOTE XX ; Start 01/09/19 at 15:00 Glucose (Glutose) 15 gm Q15M PRN PO DECREASED GLUCOSE; Start 01/09/19 at 15:00 Glucose (Glutose) 22.5 gm Q15M PRN PO DECREASED GLUCOSE; Start 01/09/19 at 15:00 Dextrose (D50w Syringe) 25 ml Q15M PRN IV DECREASED GLUCOSE; Start 01/09/19 at 15:00 Dextrose (D50w Syringe) 50 ml Q15M PRN IV DECREASED GLUCOSE; Start 01/09/19 at 15:00 Glucagon (Glucagen) 1 mg Q15M PRN IM DECREASED GLUCOSE; Start 01/09/19 at 15:00 Glucose (Glutose) 15 gm Q15M PRN BUCCAL DECREASED GLUCOSE; Start 01/09/19 at 15:00 Nitroglycerin (Nitroglycerin (Sl Tab) 0.4 Mg) 1 tab Q5M PRN SL ANGINA; Start 01/09/19 at 20:00 Heparin Sodium (Porcine) (Heparin (5000 Units/1ml)) 5,000 unit BID SC ; Start 01/10/19 at 21:00 Finasteride (Proscar) 5 mg DAILY PO Last administered on 01/10/19at 12:37; Admin Dose 5 MG; Start 01/10/19 at 12:00 Alfuzosin HCl (Uroxatral) 10 mg HS PO ; Start 01/10/19 at 21:00 Allergies: Coded Allergies: No Known Allergy (Unverified , 01/09/19) Past Surgical History Past Surgical Hx: other (His recent ankle surgery) Social History Alcohol Use: rarely Smoking Status: Former smoker Drug Use: none Exam/Review of Systems Exam Vitals Vital Signs Date Temp Pulse Resp B/P (MAP) Pulse Ox O2 O2 Flow FiO2 Time Delivery Rate 01/10/19 98.1 83 18 110/56 89 14:35 (74) 01/09/19 Nasal 23:39 Cannula 01/09/19 2.0 20:35 Intake and Output 01/09/19 01/09/19 01/10/19 1515:00 23:00 07:00 IntakeIntake Total 410 ml 500 ml OutputOutput Total 50 ml 350 ml 500 ml BalanceBalance -50 ml 60 ml 0 ml Constitutional: alert, oriented Psych: no complaints Head: normocephalic Eyes: nl conjunctiva ENMT: nl external ears & nose Neck: supple, non-tender Respiratory: clear to auscultation, normal air movement, diminished breath sounds, other Cardiovascular: regular rate and rhythm, edema Gastrointestinal: soft, non-tender Genitourinary - Male: nl penis, nl scrotum, other (Rectal exam revealed the prostate not to be large.) Musculoskeletal: nl extremities to inspection; No joint tenderness Extremities: No calf tenderness Neurological: nl mental status Skin: nl turgor Lymph: nl lymph nodes Results Result Diagram: 01/10/19 0439 01/10/19 0439 Results 24hrs Laboratory Tests Test 01/09/19 17:50 01/09/19 21:14 01/10/19 00:25 01/10/19 01:38 Bedside Glucose 157 182 127 Troponin I < 0.012 Test 01/10/19 04:20 01/10/19 04:27 01/10/19 04:39 01/10/19 08:30 Troponin I < 0.012 Hemoglobin A1c 6.5 H White Blood Count 9.5 Red Blood Count 3.73 #L Hemoglobin 10.9 L Hematocrit 33.9 L Mean Corpuscular 90.9 Volume Mean Corpuscular 29.2 Hemoglobin Mean Corpuscular 32.2 Hemoglobin Concent Red Cell 13.3 Distribution Width Platelet Count 182 Mean Platelet Volume 10.3 Immature 0.400 Granulocytes % Neutrophils % 72.0 Lymphocytes % 13.3 L Monocytes % 13.4 H Eosinophils % 0.6 Basophils % 0.3 Nucleated Red Blood 0.0 Cells % Immature 0.040 H Granulocytes # Neutrophils # 6.8 Lymphocytes # 1.3 Monocytes # 1.3 H Eosinophils # 0.1 Basophils # 0.0 Nucleated Red Blood 0.0 Cells # Sodium Level 137 Potassium Level 4.0 Chloride Level 104 Carbon Dioxide Level 26 Anion Gap 7 Blood Urea Nitrogen 18 Creatinine 0.69 Est Glomerular > 60 Filtrat Rate mL/min Glucose Level 130 Calcium Level 8.5 Phosphorus Level 4.0 Magnesium Level 1.2 L Triglycerides Level 47 Cholesterol Level 75 L LDL Cholesterol, 31 Calculated HDL Cholesterol 35 Cholesterol/HDL 2.1 Ratio Bedside Glucose 123 Test 01/10/19 11:51 01/10/19 12:27 Troponin I < 0.012 Prostate Specific 3.2 Antigen Bedside Glucose 112 Medications Medication Current Medications Ondansetron HCl (Zofran Inj) 4 mg Q4H PRN IV NAUSEA AND/OR VOMITING Last administered on 01/10/19at 10:23; Admin Dose 4 MG; Start 01/09/19 at 08:00 Diphenhydramine HCl (Benadryl) 25 mg Q4H PRN PO ITCHING; Start 01/09/19 at 08:00 Oxycodone HCl (Roxicodone) 5 mg Q4 PO Last administered on 01/10/19 17:18; Admin Dose 5 MG; Start 01/09/19 at 13:00 Hydromorphone HCl (Dilaudid) 1 mg Q3H PRN IV SEVERE PAIN LEVEL 7-10 Last administered on 01/10/19 10:05; Admin Dose 1 MG; Start 01/09/19 at 08:00 Gabapentin (Neurontin) 300 mg TID PO Last administered on 01/10/19 12:37; Admin Dose 300 MG; Start 01/09/19 at 13:00 Cefazolin Sodium 50 ml @ 100 mls/hr Q8H IVPB Last administered on 01/10/19 15:40; Admin Dose 100 MLS/HR; Start 01/09/19 at 16:00; Stop 01/11/19 at 08:29 Ascorbic Acid (Vitamin C) 1,000 mg DAILY PO Last administered on 01/10/19 08:33; Admin Dose 1,000 MG; Start 01/09/19 at 14:00 Cholecalciferol (Vitamin D) 5,000 unit DAILY PO Last administered on 01/10/19 08:48; Admin Dose 5,000 UNIT; Start 01/09/19 at 14:00 Diagnostic Test (Pha) (Accu-Chek) 1 ea 02 XX Last administered on 01/10/19 01:39; Admin Dose 1 EA; Start 01/10/19 at 02:00 Insulin Aspart (Novolog Insulin Pen) NOVOLOG *MILD* ALGORITHM WITH MEALS BEDTIME SC Last administered on 01/09/19 21:16; Admin Dose 1 UNIT; Start 01/09/19 at 17:55 Amlodipine Besylate (Norvasc) 2.5 mg DAILY PO Last administered on 01/10/19 08:49; Admin Dose 2.5 MG; Start 01/10/19 at 09:00 Aspirin (Halfprin) 81 mg DAILY PO Last administered on 01/10/19 08:33; Admin Dose 81 MG; Start 01/09/19 at 15:00 Atorvastatin Calcium (Lipitor) 40 mg QHS PO Last administered on 01/09/19 21:04; Admin Dose 40 MG; Start 01/09/19 at 21:00 Escitalopram Oxalate (Lexapro) 5 mg DAILY PO Last administered on 01/10/19 08:48; Admin Dose 5 MG; Start 01/10/19 at 09:00 Folic Acid (Folic Acid) 1 mg DAILY PO Last administered on 01/10/19 08:48; Admin Dose 1 MG; Start 01/10/19 at 09:00 Furosemide (Lasix) 20 mg DAILY PO Last administered on 01/10/19 08:49; Admin Dose 20 MG; Start 01/10/19 at 09:00 Losartan Potassium (Cozaar) 50 mg BID PO Last administered on 01/10/19 08:33; Admin Dose 50 MG; Start 01/09/19 at 21:00 Metformin HCl (Glucophage) 500 mg WITH BREAKFAST DINNE PO Last administered on 01/10/19 08:32; Admin Dose 500 MG; Start 01/09/19 at 17:55 Ranitidine HCl (Zantac) 150 mg Q12 PO Last administered on 01/10/19 08:32; Admin Dose 150 MG; Start 01/09/19 at 21:00 Zolpidem Tartrate (Ambien) 5 mg HS MAY REPEAT X 1 PRN PO INSOMNIA; Start 01/09/19 at 15:30 Diagnostic Test (Pha) (Accu-Chek) 1 ea AC MEALS AND BEDTIME XX Last admini stered on 01/10/19at 11:10; Admin Dose 1 EA; Start 01/09/19 at 17:25 Miscellaneous Information 1 ea NOTE XX ; Start 01/09/19 at 15:00 Glucose (Glutose) 15 gm Q15M PRN PO DECREASED GLUCOSE; Start 01/09/19 at 15:00 Glucose (Glutose) 22.5 gm Q15M PRN PO DECREASED GLUCOSE; Start 01/09/19 at 15:00 Dextrose (D50w Syringe) 25 ml Q15M PRN IV DECREASED GLUCOSE; Start 01/09/19 at 15:00 Dextrose (D50w Syringe) 50 ml Q15M PRN IV DECREASED GLUCOSE; Start 01/09/19 at 15:00 Glucagon (Glucagen) 1 mg Q15M PRN IM DECREASED GLUCOSE; Start 01/09/19 at 15:00 Glucose (Glutose) 15 gm Q15M PRN BUCCAL DECREASED GLUCOSE; Start 01/09/19 at 15:00 Nitroglycerin (Nitroglycerin (Sl Tab) 0.4 Mg) 1 tab Q5M PRN SL ANGINA; Start 01/09/19 at 20:00 Heparin Sodium (Porcine) (Heparin (5000 Units/1ml)) 5,000 unit BID SC ; Start 01/10/19 at 21:00 Finasteride (Proscar) 5 mg DAILY PO Last administered on 01/10/19at 12:37; Admin Dose 5 MG; Start 01/10/19 at 12:00 Alfuzosin HCl (Uroxatral) 10 mg HS PO ; Start 01/10/19 at 21:00 ALEX JOSHI MD Jan 10, 2019 17:31
--- NOTE | 2019-01-10 18:21 | CONS ---
Assessment/Plan Assessment/Plan Hospital Course (Demo Recall) IMPRESSION: 1. Chest pain, assess for acute coronary syndrome with the patient's chest pain resolved at this time. 2. Coronary artery disease, status post coronary artery bypass graft surgery in 2017. 3. Hypertension, under reasonable control. In fact, lowering dizziness and weakness. 4. Postoperative status post ankle arthrodesis. 5. Diabetes mellitus. 6. Psychiatric disorder. 7. Dyslipidemia. Recc: -Tele -Continue norvasc/losartan -Continue asa -PLavix ok to be held as per family no h/o stents -Contineu prophylactic abx -pain control Consultation Date/Type/Reason Admit Date/Time Jan 10, 2019 at 16:40 Initial Consult Date 01/10/19 Type of Consult Cardiology Reason for Consultation chest pain Requesting Provider: JORGE BOLANOS Date/Time of Note DATE: 01/10/19 TIME: 18:18 Exam/Review of Systems Vital Signs Vitals Vital Signs Date Temp Pulse Resp B/P (MAP) Pulse Ox O2 O2 Flow FiO2 Time Delivery Rate 01/10/19 98.1 83 18 110/56 89 14:35 (74) 01/09/19 Nasal 23:39 Cannula 01/09/19 2.0 20:35 Intake and Output 01/09/19 01/09/19 01/10/19 1515:00 23:00 07:00 IntakeIntake Total 410 ml 500 ml OutputOutput Total 50 ml 350 ml 500 ml BalanceBalance -50 ml 60 ml 0 ml Exam Exam Review of Systems: CONSTITUTIONAL: No fevers, chills. PULMONARY: No sob CARDIOVASCULAR: No chest pain/palpitations GASTROINTESTINAL: No nausea/vomiting. GENITOURINARY: No hematuria/dysuria. MUSCULOSKELETAL: No myagias/arthalgias. PSYCHIATRIC: The patient denies depression. NEUROLOGIC: No weakness Constitutional: alert, oriented Psych: no complaints Head: normocephalic ENMT: mucosa pink and moist Neck: supple, jvd Respiratory: diminished breath sounds Cardiovascular: regular rate and rhythm Gastrointestinal: soft, non-tender Musculoskeletal: muscle tone (normal) Extremities: edema (none) Neurological: other (No frocal deficits) Labs Result Diagram: 01/10/19 0439 01/10/19 0439 Results 24hrs Laboratory Tests Test 01/09/19 21:14 01/10/19 00:25 01/10/19 01:38 01/10/19 04:20 Bedside Glucose 182 127 Troponin I < 0.012 < 0.012 Test 01/10/19 04:27 01/10/19 04:39 01/10/19 08:30 01/10/19 11:51 Hemoglobin A1c 6.5 H White Blood Count 9.5 Red Blood Count 3.73 #L Hemoglobin 10.9 L Hematocrit 33.9 L Mean Corpuscular 90.9 Volume Mean Corpuscular 29.2 Hemoglobin Mean Corpuscular 32.2 Hemoglobin Concent Red Cell 13.3 Distribution Width Platelet Count 182 Mean Platelet Volume 10.3 Immature 0.400 Granulocytes % Neutrophils % 72.0 Lymphocytes % 13.3 L Monocytes % 13.4 H Eosinophils % 0.6 Basophils % 0.3 Nucleated Red Blood 0.0 Cells % Immature 0.040 H Granulocytes # Neutrophils # 6.8 Lymphocytes # 1.3 Monocytes # 1.3 H Eosinophils # 0.1 Basophils # 0.0 Nucleated Red Blood 0.0 Cells # Sodium Level 137 Potassium Level 4.0 Chloride Level 104 Carbon Dioxide Level 26 Anion Gap 7 Blood Urea Nitrogen 18 Creatinine 0.69 Est Glomerular > 60 Filtrat Rate mL/min Glucose Level 130 Calcium Level 8.5 Phosphorus Level 4.0 Magnesium Level 1.2 L Triglycerides Level 47 Cholesterol Level 75 L LDL Cholesterol, 31 Calculated HDL Cholesterol 35 Cholesterol/HDL 2.1 Ratio Bedside Glucose 123 Troponin I < 0.012 Prostate Specific 3.2 Antigen Test 01/10/19 12:27 01/10/19 17:52 Bedside Glucose 112 141 Medications Medications Current Medications Ondansetron HCl (Zofran Inj) 4 mg Q4H PRN IV NAUSEA AND/OR VOMITING Last ad ministered on 01/10/19at 10:23; Admin Dose 4 MG; Start 01/09/19 at 08:00 Diphenhydramine HCl (Benadryl) 25 mg Q4H PRN PO ITCHING; Start 01/09/19 at 08:00 Oxycodone HCl (Roxicodone) 5 mg Q4 PO Last administered on 01/10/19at 17:18; Admin Dose 5 MG; Start 01/09/19 at 13:00 Hydromorphone HCl (Dilaudid) 1 mg Q3H PRN IV SEVERE PAIN LEVEL 7-10 Last administered on 01/10/19 17:57; Admin Dose 1 MG; Start 01/09/19 at 08:00 Gabapentin (Neurontin) 300 mg TID PO Last administered on 01/10/19 12:37; Admi n Dose 300 MG; Start 01/09/19 at 13:00 Cefazolin Sodium 50 ml @ 100 mls/hr Q8H IVPB Last administered on 01/10/19 15:40; Admin Dose 100 MLS/HR; Start 01/09/19 at 16:00; Stop 01/11/19 at 08:29 Ascorbic Acid (Vitamin C) 1,000 mg DAILY PO Last administered on 01/10/19 08:33; Admin Dose 1,000 MG; Start 01/09/19 at 14:00 Cholecalciferol (Vitamin D) 5,000 unit DAILY PO Last administered on 01/10/19 08:48; Admin Dose 5,000 UNIT; Start 01/09/19 at 14:00 Diagnostic Test (Pha) (Accu-Chek) 1 ea 02 XX Last administered on 01/10/19 01:39; Admin Dose 1 EA; Start 01/10/19 at 02:00 Insulin Aspart (Novolog Insulin Pen) NOVOLOG *MILD* ALGORITHM WITH MEALS BEDTIME SC Last administered on 01/10/19 17:56; Admin Dose 1 UNIT; Start 01/09/19 at 17:55 Amlodipine Besylate (Norvasc) 2.5 mg DAILY PO Last administered on 01/10/19 08:49; Admin Dose 2.5 MG; Start 01/10/19 at 09:00 Aspirin (Halfprin) 81 mg DAILY PO Last administered on 01/10/19 08:33; Admin Dose 81 MG; Start 01/09/19 at 15:00 Atorvastatin Calcium (Lipitor) 40 mg QHS PO Last administered on 01/09/19 21:04; Admin Dose 40 MG; Start 01/09/19 at 21:00 Escitalopram Oxalate (Lexapro) 5 mg DAILY PO Last administered on 01/10/19 08:48; Admin Dose 5 MG; Start 01/10/19 at 09:00 Folic Acid (Folic Acid) 1 mg DAILY PO Last administered on 01/10/19 08:48; Admin Dose 1 MG; Start 01/10/19 at 09:00 Furosemide (Lasix) 20 mg DAILY PO Last administered on 01/10/19at 08:49; Admin Dose 20 MG; Start 01/10/19 at 09:00 Losartan Potassium (Cozaar) 50 mg BID PO Last administered on 01/10/19at 08:33; Admin Dose 50 MG; Start 01/09/19 at 21:00 Metformin HCl (Glucophage) 500 mg WITH BREAKFAST DINNE PO Last administered on 01/10/19at 17:54; Admin Dose 500 MG; Start 01/09/19 at 17:55 Ranitidine HCl (Zantac) 150 mg Q12 PO Last administered on 01/10/19at 08:32; Admin Dose 150 MG; Start 01/09/19 at 21:00 Zolpidem Tartrate (Ambien) 5 mg HS MAY REPEAT X 1 PRN PO INSOMNIA; Start 01/09/19 at 15:30 Diagnostic Test (Pha) (Accu-Chek) 1 ea AC MEALS AND BEDTIME XX Last administered on 01/10/19at 17:27; Admin Dose 1 EA; Start 01/09/19 at 17:25 Miscellaneous Information 1 ea NOTE XX ; Start 01/09/19 at 15:00 Glucose (Glutose) 15 gm Q15M PRN PO DECREASED GLUCOSE; Start 01/09/19 at 15:00 Glucose (Glutose) 22.5 gm Q15M PRN PO DECREASED GLUCOSE; Start 01/09/19 at 15:00 Dextrose (D50w Syringe) 25 ml Q15M PRN IV DECREASED GLUCOSE; Start 01/09/19 at 15:00 Dextrose (D50w Syringe) 50 ml Q15M PRN IV DECREASED GLUCOSE; Start 01/09/19 at 15:00 Glucagon (Glucagen) 1 mg Q15M PRN IM DECREASED GLUCOSE; Start 01/09/19 at 15:00 Glucose (Glutose) 15 gm Q15M PRN BUCCAL DECREASED GLUCOSE; Start 01/09/19 at 15:00 Nitroglycerin (Nitroglycerin (Sl Tab) 0.4 Mg) 1 tab Q5M PRN SL ANGINA; Start 01/09/19 at 20:00 Heparin Sodium (Porcine) (Heparin (5000 Units/1ml)) 5,000 unit BID SC ; Start 01/10/19 at 21:00 Finasteride (Proscar) 5 mg DAILY PO Last administered on 01/10/19at 12:37; Admin Dose 5 MG; Start 01/10/19 at 12:00 Alfuzosin HCl (Uroxatral) 10 mg HS PO ; Start 01/10/19 at 21:00 Bethanechol Chloride (Urecholine) 10 mg TID PO ; Start 01/10/19 at 21:00 HARSH CARRILLO Jan 10, 2019 18:21
[2019-01-10 19:35] VITALS: BP 114/62; PULSE 83; RESP 18
--- NOTE | 2019-01-10 20:30 | RADRPT ---
Echocardiogram Report Patient Name: CALEB MIGUELPatient ID: [id number] : 1950 (68y 11m)Study Date: 01/10/2019 9:21:01 AM Gender: MAccession #: [id number] Tech: Izaiah Gordon [facility] Location: [id number] Ref.Physician: HARSH HOWARD Height(Cm): BSA: Weight(Kg): Quality: AdequateAccount #: Procedures: Echocardiographic Report: Transthoracic echocardiogram with complete 2D, M-Mode, and doppler examination. Indications: Chest Pain. Measurements: 2D/M Mode Doppler Measurement Value Normal Range Measurement Value Normal Range LVIDd 2D 3.8 [ 4.2 - 5.8 ] cm AV Peak Danish 1.3 [ 100.0 - 170.0 ] cm/sec LVIDs 2D 2.4 [ 2.5 - 4.0 ] cm AV Peak PG 7.0 [ 2.0 - 9.0 ] mmHg LVPWd 2D 1.1 [ 0.6 - 1.0 ] cm LVOT Peak Danish 1.0 [ 70.0 - 110.0 ] cm/sec IVSd 2D 1.1 [ 0.6 - 1.0 ] cm LVOT Peak PG 4.0 [ 2.0 - 6.0 ] mmHg IVS/LVPW 2D 1.0 ratio MV E Peak Danish 0.7 [ 60.0 - 130.0 ] cm/sec AoR Diam 2D 3.0 [ 2.6 - 3.4 ] cm MV A Peak Danish 0.8 [ 100.0 - 120.0 ] cm/sec LA/Ao 2D 1 ratio MV E/A 0.9 [ 0.8 - 1.5 ] ratio LA Dimen 2D 4.1 [ 3.0 - 4.0 ] cm MV Decel Time 169 [ 104 - 258 ] msec Lat E` Danish 0.1 [ 10.0 - 15.0 ] cm/sec MV E/A 0.9 [ 0.8 - 1.5 ] ratio TR Peak Danish 2.1 [ 100.0 - 280.0 ] cm/sec TR Peak PG 17.0 mmHg RVSP 20.0 [ 10.0 - 36.0 ] mmHg Findings: Left Ventricle: Normal left ventricular systolic function. Normal left ventricular cavity size. Left ventricular wall thickness upper limits of normal. Ejection fraction is visually estimated at 60 %. Tissue Doppler/Mitral Doppler indices are consistent with impaired relaxation (Stage I diastolic dysfunction). Right Ventricle: Normal right ventricular size. Normal right ventricular systolic function. Left Atrium: There is mild enlargement of left atrium. Right Atrium: The right atrium is normal in size. Mitral Valve: Mild mitral leaflet calcification. Mild mitral annular calcification. Trace mitral regurgitation. Aortic Valve: No hemodynamically significant aortic stenosis by doppler. Aortic cusps appear mildly calcified. Tricuspid Valve: Normal appearance of the tricuspid valve. Estimated peak PA systolic pressure 20 mmHg. There is trace tricuspid regurgitation. Pericardium: Normal pericardium with no significant pericardial effusion. Aorta: Normal aortic root. IVC: Normal size and normal respiratory collapse consistent with normal right atrial pressure. Conclusions: Normal left ventricular systolic function. Normal left ventricular cavity size. Left ventricular wall thickness upper limits of normal. Ejection fraction is visually estimated at 60 %. Tissue Doppler/Mitral Doppler indices are consistent with impaired relaxation (Stage I diastolic dysfunction). There is mild enlargement of left atrium. Mild mitral leaflet calcification. Mild mitral annular calcification. Trace mitral regurgitation. Normal appearance of the tricuspid valve. Estimated peak PA systolic pressure 20 mmHg. There is trace tricuspid regurgitation. Electronically Signed By: Harsh Howard 2019-01-10 20:30:18 PDT
[2019-01-10] MEDS: ATORVASTATIN 40 MG TAB PO SCH (21:07)
[2019-01-10] MEDS: ALFUZOSIN (SR) 10 MG TAB PO SCH (21:08)
[2019-01-10] MEDS: BETHANECHOL 10 MG TAB PO SCH (21:08)
[2019-01-10] MEDS: HEPARIN 5,000 UNIT/1 ML VIAL SC SCH (21:22)
[2019-01-10] MEDS ORDERED: MAGNESIUM HYDROXIDE 30ML CUP PO ONE (22:30)
[2019-01-11] MEDS: CEFAZOLIN 1 GM/50 ML (PMX) 50 ML IVPB SCH ×2 (01:00→08:17)
[2019-01-11] MEDS: oxyCODONE 5 MG TAB PO SCH ×6 (01:01→20:22)
[2019-01-11 01:42] VITALS: BP 109/57; PULSE 78; RESP 18
[2019-01-11] MEDS: ACCU-CHEK XX SCH ×5 (02:00→21:00)
[2019-01-11 07:11] VITALS: BP 106/56; PULSE 76; RESP 16
[2019-01-11] MEDS: HYDROmorphONE 1 MG/ML SYG IV PRN ×2 (08:15→14:03)
[2019-01-11] MEDS: FUROSEMIDE 20 MG TAB PO SCH (09:09)
[2019-01-11] MEDS: ESCITALOPRAM 10 MG TAB PO SCH (09:09)
[2019-01-11] MEDS: RANITIDINE 150 MG TAB PO SCH ×2 (09:09→20:19)
[2019-01-11] MEDS: metFORMIN 500 MG TAB PO SCH ×2 (09:09→17:44)
[2019-01-11] MEDS: LOSARTAN 50 MG TAB PO SCH ×2 (09:10→21:00)
[2019-01-11] MEDS: ASPIRIN (EC) 81 MG TAB PO SCH (09:10)
[2019-01-11] MEDS: GABAPENTIN 300 MG CAP PO SCH ×3 (09:10→20:19)
[2019-01-11] MEDS: AMLODIPINE 2.5 MG TAB PO SCH (09:10)
[2019-01-11] MEDS: ASCORBIC ACID 500 MG TAB PO SCH (09:10)
[2019-01-11] MEDS: CHOLECALCIFEROL 1,000 UNIT TAB PO SCH (09:11)
[2019-01-11] MEDS: FINASTERIDE 5 MG TAB PO SCH (09:11)
[2019-01-11] MEDS: BETHANECHOL 10 MG TAB PO SCH ×2 (09:11→13:12)
[2019-01-11] MEDS: HEPARIN 5,000 UNIT/1 ML VIAL SC SCH ×2 (09:19→20:27)
[2019-01-11] MEDS: FOLIC ACID 1 MG TAB PO SCH (09:20)
[2019-01-11] MEDS: INSULIN ASPART [NOVOLOG] 3 ML PEN SC SCH ×4 (09:20→20:27)
--- NOTE | 2019-01-11 11:15 | PN ---
Date/Time of Note Date/Time of Note DATE: 01/11/19 TIME: 11:14 Assessment/Plan VTE Prophylaxis Risk score (from Nsg)>0 risk: 3 SCD applied (from Nsg): Yes Pharmacological prophylaxis: heparin Lines/Catheters IV Catheter Type (from Nrsg): Saline Lock Assessment/Plan Hospital Course A 68-year-old male status post elective right ankle arthrodesis for severe right osteoarthritis for whom we are consulted for management of his medical problems: 1. Chest pain, left-sided: resolved -ekg reviewed, echo report pending, no further intervention for now, likely anxiety related 2. History of coronary artery disease, status CABG, was also on Plavix therapy. -Continue home aspirin only for now, per Ortho, can resume Plavix 5 days after surgery. Nitroglycerin also as needed. 3. Hypertension with good control. Continue home meds. 4. Chronic depression and anxiety. Continue home Lexapro. 5. History of congestive heart failure. Continue home Lasix and all of his meds. The patient is also on losartan. 6. Diabetes mellitus type 2. Continue sliding scale insulin, diabetic diet and titrate medications as indicated. 7. Hypomagnesemia: replete 8. Urinary retention: post op, patient did eventually void on his own, continue monitoring for now DVT Prophylaxis : Patient was on dual antiplatelet therapy for coronary artery disease, but is currently only on baby aspirin. He is high risk for thrombus formation. Continue heparin for DVT prophylaxis. Further interventions will depend on the patient's clinical course. We will follow the patient with you. Result Diagram: 01/11/19 0417 01/11/19 0417 Results 24hrs Laboratory Tests Test 01/10/19 11:51 01/10/19 12:27 01/10/19 17:52 01/10/19 21:05 Troponin I < 0.012 Prostate Specific 3.2 Antigen Bedside Glucose 112 141 136 Test 01/11/19 04:17 01/11/19 07:15 01/11/19 09:07 White Blood Count 11.8 #H Red Blood Count 3.81 L Hemoglobin 11.1 L Hematocrit 33.9 L Mean Corpuscular 89.0 Volume Mean Corpuscular 29.1 Hemoglobin Mean Corpuscular 32.7 Hemoglobin Concent Red Cell 13.3 Distribution Width Platelet Count 161 Mean Platelet 11.3 H Volume Immature 0.500 H Granulocytes % Neutrophils % 77.3 H Lymphocytes % 9.7 L Monocytes % 11.8 H Eosinophils % 0.4 Basophils % 0.3 Nucleated Red 0.0 Blood Cells % Immature 0.060 H Granulocytes # Neutrophils # 9.1 H Lymphocytes # 1.2 Monocytes # 1.4 H Eosinophils # 0.1 Basophils # 0.0 Nucleated Red 0.0 Blood Cells # Sodium Level 137 Potassium Level 4.1 Chloride Level 102 Carbon Dioxide 28 Level Anion Gap 7 Blood Urea 17 Nitrogen Creatinine 0.75 Est Glomerular > 60 Filtrat Rate mL/min Glucose Level 148 Calcium Level 8.8 Lab Scanned Report REFERENCE LAB Bedside Glucose 159 Subjective 24 Hr Interval Summary Constitutional: no complaints Exam/Review of Systems Exam Vitals Vital Signs Date Temp Pulse Resp B/P (MAP) Pulse Ox O2 O2 Flow FiO2 Time Delivery Rate 01/11/19 98.6 76 16 106/56 100 Nasal 07:11 (73) Cannula 01/10/19 2.0 20:00 Intake and Output 01/10/19 01/10/19 01/11/19 1515:00 23:00 07:00 IntakeIntake Total 50 ml 336 ml 190 ml OutputOutput Total 750 ml 1075 ml 862 ml BalanceBalance -700 ml -739 ml -672 ml Constitutional: alert Respiratory: clear to auscultation Cardiovascular: regular rate and rhythm Gastrointestinal: soft; No distended Musculoskeletal: No nl extremities to inspection Results Results 24hrs Laboratory Tests Test 01/10/19 11:51 01/10/19 12:27 01/10/19 17:52 01/10/19 21:05 Troponin I < 0.012 Prostate Specific 3.2 Antigen Bedside Glucose 112 141 136 Test 01/11/19 04:17 01/11/19 07:15 01/11/19 09:07 White Blood Count 11.8 #H Red Blood Count 3.81 L Hemoglobin 11.1 L Hematocrit 33.9 L Mean Corpuscular 89.0 Volume Mean Corpuscular 29.1 Hemoglobin Mean Corpuscular 32.7 Hemoglobin Concent Red Cell 13.3 Distribution Width Platelet Count 161 Mean Platelet 11.3 H Volume Immature 0.500 H Granulocytes % Neutrophils % 77.3 H Lymphocytes % 9.7 L Monocytes % 11.8 H Eosinophils % 0.4 Basophils % 0.3 Nucleated Red 0.0 Blood Cells % Immature 0.060 H Granulocytes # Neutrophils # 9.1 H Lymphocytes # 1.2 Monocytes # 1.4 H Eosinophils # 0.1 Basophils # 0.0 Nucleated Red 0.0 Blood Cells # Sodium Level 137 Potassium Level 4.1 Chloride Level 102 Carbon Dioxide 28 Level Anion Gap 7 Blood Urea 17 Nitrogen Creatinine 0.75 Est Glomerular > 60 Filtrat Rate mL/min Glucose Level 148 Calcium Level 8.8 Lab Scanned Report REFERENCE LAB Bedside Glucose 159 Medications Medication Current Medications Ondansetron HCl (Zofran Inj) 4 mg Q4H PRN IV NAUSEA AND/OR VOMITING Last administered on 01/10/19 10:23; Admin Dose 4 MG; Start 01/09/19 at 08:00 Diphenhydramine HCl (Benadryl) 25 mg Q4H PRN PO ITCHING; Start 01/09/19 at 08:00 Oxycodone HCl (Roxicodone) 5 mg Q4 PO Last administered on 01/11/19 09:20; Admin Dose 5 MG; Start 01/09/19 at 13:00 Hydromorphone HCl (Dilaudid) 1 mg Q3H PRN IV SEVERE PAIN LEVEL 7-10 Last administered on 01/11/19 08:15; Admin Dose 1 MG; Start 01/09/19 at 08:00 Gabapentin (Neurontin) 300 mg TID PO Last administered on 01/11/19 09:10; Admin Dose 300 MG; Start 01/09/19 at 13:00 Ascorbic Acid (Vitamin C) 1,000 mg DAILY PO Last administered on 01/11/19 09:10; Admin Dose 1,000 MG; Start 01/09/19 at 14:00 Cholecalciferol (Vitamin D) 5,000 unit DAILY PO Last administered on 01/11/19 09:11; Admin Dose 5,000 UNIT; Start 01/09/19 at 14:00 Diagnostic Test (Pha) (Accu-Chek) 1 ea 02 XX Last administered on 01/10/19 01:39; Admin Dose 1 EA; Start 01/10/19 at 02:00 Insulin Aspart (Novolog Insulin Pen) NOVOLOG *MILD* ALGORITHM WITH MEALS BEDTIME SC Last administered on 01/11/19 09:20; Admin Dose 1 UNIT; Start 01/09/19 at 17:55 Amlodipine Besylate (Norvasc) 2.5 mg DAILY PO Last administered on 01/11/19 09:10; Admin Dose 2.5 MG; Start 01/10/19 at 09:00 Aspirin (Halfprin) 81 mg DAILY PO Last administered on 01/11/19 09:10; Admin Dose 81 MG; Start 01/09/19 at 15:00 Atorvastatin Calcium (Lipitor) 40 mg QHS PO Last administered on 01/10/19 21:07; Admin Dose 40 MG; Start 01/09/19 at 21:00 Escitalopram Oxalate (Lexapro) 5 mg DAILY PO Last administered on 01/11/19 09:09; Admin Dose 5 MG; Start 01/10/19 at 09:00 Folic Acid (Folic Acid) 1 mg DAILY PO Last administered on 01/11/19 09:20; Admin Dose 1 MG; Start 01/10/19 at 09:00 Furosemide (Lasix) 20 mg DAILY PO Last administered on 01/11/19 09:09; Admin Dose 20 MG; Start 01/10/19 at 09:00 Losartan Potassium (Cozaar) 50 mg BID PO Last administered on 01/11/19 09:10; Admin Dose 50 MG; Start 01/09/19 at 21:00 Metformin HCl (Glucophage) 500 mg WITH BREAKFAST DINNE PO Last administered on 01/11/19 09:09; Admin Dose 500 MG; Start 01/09/19 at 17:55 Ranitidine HCl (Zantac) 150 mg Q12 PO Last administered on 01/11/19 09:09; Admin Dose 150 MG; Start 01/09/19 at 21:00 Zolpidem Tartrate (Ambien) 5 mg HS MAY REPEAT X 1 PRN PO INSOMNIA; Start 01/09/19 at 15:30 Diagnostic Test (Pha) (Accu-Chek) 1 ea AC MEALS AND BEDTIME XX Last administered on 01/11/19 09:00; Admin Dose 1 EA; Start 01/09/19 at 17:25 Miscellaneous Information 1 ea NOTE XX ; Start 01/09/19 at 15:00 Glucose (Glutose) 15 gm Q15M PRN PO DECREASED GLUCOSE; Start 01/09/19 at 15:00 Glucose (Glutose) 22.5 gm Q15M PRN PO DECREASED GLUCOSE; Start 01/09/19 at 15:00 Dextrose (D50w Syringe) 25 ml Q15M PRN IV DECREASED GLUCOSE; Start 01/09/19 at 15:00 Dextrose (D50w Syringe) 50 ml Q15M PRN IV DECREASED GLUCOSE; Start 01/09/19 at 15:00 Glucagon (Glucagen) 1 mg Q15M PRN IM DECREASED GLUCOSE; Start 01/09/19 at 15:00 Glucose (Glutose) 15 gm Q15M PRN BUCCAL DECREASED GLUCOSE; Start 01/09/19 at 15:00 Nitroglycerin (Nitroglycerin (Sl Tab) 0.4 Mg) 1 tab Q5M PRN SL ANGINA; Start 01/09/19 at 20:00 Heparin Sodium (Porcine) (Heparin (5000 Units/1ml)) 5,000 unit BID SC Last administered on 01/11/19 09:19; Admin Dose 5,000 UNIT; Start 01/10/19 at 21:00 Finasteride (Proscar) 5 mg DAILY PO Last administered on 01/11/19at 09:11; Admin Dose 5 MG; Start 01/10/19 at 12:00 Alfuzosin HCl (Uroxatral) 10 mg HS PO Last administered on 01/10/19at 21:08; Admin Dose 10 MG; Start 01/10/19 at 21:00 Bethanechol Chloride (Urecholine) 10 mg TID PO Last administered on 01/11/19 09:11; Admin Dose 10 MG; Start 01/10/19 at 21:00 JATINDER ROSE Jan 11, 2019 11:15
--- NOTE | 2019-01-11 16:52 | CONS ---
Assessment/Plan Assessment/Plan Assessment/Plan (Daily) Coronary artery disease, status post coronary artery bypass graft surgery in 2017. Hypertension Postoperative status post ankle arthrodesis. Diabetes mellitus. Dyslipidemia. Continue Lasix Continue Losartan Continue Norvasc Continue Insulin Continue Heparin Consultation Date/Type/Reason Admit Date/Time Jan 10, 2019 at 16:40 Type of Consult Cardiology Date/Time of Note DATE: 01/11/19 TIME: 16:49 Past Medical History Home Meds Reported Medications Hydrocodone/Acetaminophen (Hydrocodone-Acetamin 10-325 mg) 1 Each Tablet, 1 TAB ORAL Q6 PRN for PAIN LEVEL 7-10 01/09/19 Tramadol Hcl* (Ultram*) 50 Mg Tablet, 50 MG PO Q6H PRN for PAIN, TAB 01/01/19 Temazepam* (Temazepam*) 30 Mg Capsule, 30 MG PO HS PRN for INSOMNIA, CAP 01/01/19 Ranitidine Hcl* (Ranitidine Hcl*) 150 Mg Tablet, 150 MG PO Q12, #60 TAB 01/01/19 Metformin Hcl* (Metformin Hcl*) 500 Mg Tablet, 500 MG PO WITH BREAKFAST DINNE, #60 TAB 01/01/19 Losartan Potassium* (Losartan Potassium*) 50 Mg Tablet, 50 MG PO BID, TAB 01/01/19 Lisinopril* (Lisinopril*) 40 Mg Tablet, 40 MG PO DAILY, #30 TAB 01/01/19 Gabapentin* (Gabapentin*) 300 Mg Capsule, 300 MG PO TID, #90 CAP 01/01/19 Furosemide* (Furosemide*) 20 Mg Tablet, 20 MG PO DAILY, #60 TAB 01/01/19 Folic Acid* (Folic Acid*) 1 Mg Tablet, 1 MG PO DAILY, TAB 01/01/19 Escitalopram Oxalate* (Lexapro*) 5 Mg Tablet, 5 MG PO DAILY, #30 TAB 01/01/19 Clopidogrel Bisulfate (Clopidogrel) 75 Mg Tablet, 75 MG PO DAILY, #30 TAB 01/01/19 Atorvastatin* (Atorvastatin*) 40 Mg Tablet, 40 MG PO QHS, #30 TAB 01/01/19 Aspirin (Low Dose Aspirin) 81 Mg Tablet.dr, 81 MG PO DAILY, #30 TAB 01/01/19 Amlodipine Besylate* (Amlodipine Besylate*) 2.5 Mg Tablet, 2.5 MG PO DAILY, #30 TAB 01/01/19 Medications Current Medications Ondansetron HCl (Zofran Inj) 4 mg Q4H PRN IV NAUSEA AND/OR VOMITING Last administered on 01/10/19 10:23; Admin Dose 4 MG; Start 01/09/19 at 08:00 Diphenhydramine HCl (Benadryl) 25 mg Q4H PRN PO ITCHING; Start 01/09/19 at 08:00 Oxycodone HCl (Roxicodone) 5 mg Q4 PO Last administered on 01/11/19 13:13; Admin Dose 5 MG; Start 01/09/19 at 13:00 Hydromorphone HCl (Dilaudid) 1 mg Q3H PRN IV SEVERE PAIN LEVEL 7-10 Last administered on 01/11/19 14:03; Admin Dose 1 MG; Start 01/09/19 at 08:00 Gabapentin (Neurontin) 300 mg TID PO Last administered on 01/11/19 13:12; Admin Dose 300 MG; Start 01/09/19 at 13:00 Ascorbic Acid (Vitamin C) 1,000 mg DAILY PO Last administered on 01/11/19 09:10; Admin Dose 1,000 MG; Start 01/09/19 at 14:00 Cholecalciferol (Vitamin D) 5,000 unit DAILY PO Last administered on 01/11/19 09:11; Admin Dose 5,000 UNIT; Start 01/09/19 at 14:00 Diagnostic Test (Pha) (Accu-Chek) 1 ea 02 XX Last administered on 01/10/19 01:39; Admin Dose 1 EA; Start 01/10/19 at 02:00 Insulin Aspart (Novolog Insulin Pen) NOVOLOG *MILD* ALGORITHM WITH MEALS BEDTIME SC Last administered on 01/11/19 09:20; Admin Dose 1 UNIT; Start 01/09/19 at 17:55 Amlodipine Besylate (Norvasc) 2.5 mg DAILY PO Last administered on 01/11/19 09:10; Admin Dose 2.5 MG; Start 01/10/19 at 09:00 Aspirin (Halfprin) 81 mg DAILY PO Last administered on 01/11/19 09:10; Admin Dose 81 MG; Start 01/09/19 at 15:00 Atorvastatin Calcium (Lipitor) 40 mg QHS PO Last administered on 4/12/19at 21:07; Admin Dose 40 MG; Start 01/09/19 at 21:00 Escitalopram Oxalate (Lexapro) 5 mg DAILY PO Last administered on 01/11/19 09:09; Admin Dose 5 MG; Start 01/10/19 at 09:00 Folic Acid (Folic Acid) 1 mg DAILY PO Last administered on 01/11/19 09:20; Admin Dose 1 MG; Start 01/10/19 at 09:00 Furosemide (Lasix) 20 mg DAILY PO Last administered on 01/11/19 09:09; Admin Dose 20 MG; Start 01/10/19 at 09:00 Losartan Potassium (Cozaar) 50 mg BID PO Last administered on 01/11/19 09:10; Admin Dose 50 MG; Start 01/09/19 at 21:00 Metformin HCl (Glucophage) 500 mg WITH BREAKFAST DINNE PO Last administered on 01/11/19 09:09; Admin Dose 500 MG; Start 01/09/19 at 17:55 Ranitidine HCl (Zantac) 150 mg Q12 PO Last administered on 01/11/19 09:09; Admin Dose 150 MG; Start 01/09/19 at 21:00 Zolpidem Tartrate (Ambien) 5 mg HS MAY REPEAT X 1 PRN PO INSOMNIA; Start 01/09/19 at 15:30 Diagnostic Test (Pha) (Accu-Chek) 1 ea AC MEALS AND BEDTIME XX Last adminis tered on 01/11/19at 13:00; Admin Dose 1 EA; Start 01/09/19 at 17:25 Miscellaneous Information 1 ea NOTE XX ; Start 01/09/19 at 15:00 Glucose (Glutose) 15 gm Q15M PRN PO DECREASED GLUCOSE; Start 01/09/19 at 15:00 Glucose (Glutose) 22.5 gm Q15M PRN PO DECREASED GLUCOSE; Start 01/09/19 at 15:00 Dextrose (D50w Syringe) 25 ml Q15M PRN IV DECREASED GLUCOSE; Start 01/09/19 at 15:00 Dextrose (D50w Syringe) 50 ml Q15M PRN IV DECREASED GLUCOSE; Start 01/09/19 at 15:00 Glucagon (Glucagen) 1 mg Q15M PRN IM DECREASED GLUCOSE; Start 01/09/19 at 15:00 Glucose (Glutose) 15 gm Q15M PRN BUCCAL DECREASED GLUCOSE; Start 01/09/19 at 15:00 Nitroglycerin (Nitroglycerin (Sl Tab) 0.4 Mg) 1 tab Q5M PRN SL ANGINA; Start 01/09/19 at 20:00 Heparin Sodium (Porcine) (Heparin (5000 Units/1ml)) 5,000 unit BID SC Last administered on 01/11/19at 09:19; Admin Dose 5,000 UNIT; Start 01/10/19 at 21:00 Finasteride (Proscar) 5 mg DAILY PO Last administered on 01/11/19at 09:11; Admin Dose 5 MG; Start 01/10/19 at 12:00 Alfuzosin HCl (Uroxatral) 10 mg HS PO Last administered on 01/10/19at 21:08; Admin Dose 10 MG; Start 01/10/19 at 21:00 Bethanechol Chloride (Urecholine) 10 mg TID PO Last administered on 01/11/19at 13:12; Admin Dose 10 MG; Start 01/10/19 at 21:00 Allergies: Coded Allergies: No Known Allergy (Unverified , 01/09/19) Past Surgical History Past Surgical Hx: other (His recent ankle surgery) Social History Alcohol Use: rarely Smoking Status: Former smoker Drug Use: none Exam/Review of Systems Vital Signs Vitals Vital Signs Date Temp Pulse Resp B/P (MAP) Pulse Ox O2 O2 Flow FiO2 Time Delivery Rate 01/11/19 Nasal 08:15 Cannula 01/11/19 98.6 76 16 106/56 100 07:11 (73) 01/10/19 2.0 20:00 Intake and Output 01/10/19 01/10/19 01/11/19 1515:00 23:00 07:00 IntakeIntake Total 50 ml 336 ml 190 ml OutputOutput Total 750 ml 1075 ml 862 ml BalanceBalance -700 ml -739 ml -672 ml Exam Constitutional: alert Head: normocephalic, atraumatic Neck: supple, non-tender Respiratory: clear to auscultation (no m/r/g) Cardiovascular: regular rate and rhythm Gastrointestinal: soft, nl liver, spleen Extremities: normal pulses Labs Result Diagram: 01/11/19 0417 01/11/19 0417 Results 24hrs Laboratory Tests Test 01/10/19 17:52 01/10/19 21:05 01/11/19 04:17 01/11/19 07:15 Bedside Glucose 141 136 White Blood Count 11.8 #H Red Blood Count 3.81 L Hemoglobin 11.1 L Hematocrit 33.9 L Mean Corpuscular 89.0 Volume Mean Corpuscular 29.1 Hemoglobin Mean Corpuscular 32.7 Hemoglobin Concent Red Cell 13.3 Distribution Width Platelet Count 161 Mean Platelet 11.3 H Volume Immature 0.500 H Granulocytes % Neutrophils % 77.3 H Lymphocytes % 9.7 L Monocytes % 11.8 H Eosinophils % 0.4 Basophils % 0.3 Nucleated Red 0.0 Blood Cells % Immature 0.060 H Granulocytes # Neutrophils # 9.1 H Lymphocytes # 1.2 Monocytes # 1.4 H Eosinophils # 0.1 Basophils # 0.0 Nucleated Red 0.0 Blood Cells # Sodium Level 137 Potassium Level 4.1 Chloride Level 102 Carbon Dioxide 28 Level Anion Gap 7 Blood Urea 17 Nitrogen Creatinine 0.75 Est Glomerular > 60 Filtrat Rate mL/min Glucose Level 148 Calcium Level 8.8 Lab Scanned Report REFERENCE LAB Test 01/11/19 09:07 01/11/19 13:07 Bedside Glucose 159 130 Medications Medications Current Medications Ondansetron HCl (Zofran Inj) 4 mg Q4H PRN IV NAUSEA AND/OR VOMITING Last administered on 01/10/19at 10:23; Admin Dose 4 MG; Start 01/09/19 at 08:00 Diphenhydramine HCl (Benadryl) 25 mg Q4H PRN PO ITCHING; Start 01/09/19 at 08:00 Oxycodone HCl (Roxicodone) 5 mg Q4 PO Last administered on 01/11/19at 13:13; Admin Dose 5 MG; Start 01/09/19 at 13:00 Hydromorphone HCl (Dilaudid) 1 mg Q3H PRN IV SEVERE PAIN LEVEL 7-10 Last administered on 01/11/19at 14:03; Admin Dose 1 MG; Start 01/09/19 at 08:00 Gabapentin (Neurontin) 300 mg TID PO Last administered on 01/11/19at 13:12; Admin Dose 300 MG; Start 01/09/19 at 13:00 Ascorbic Acid (Vitamin C) 1,000 mg DAILY PO Last administered on 01/11/19 09:10; Admin Dose 1,000 MG; Start 01/09/19 at 14:00 Cholecalciferol (Vitamin D) 5,000 unit DAILY PO Last administered on 01/11/19 09:11; Admin Dose 5,000 UNIT; Start 01/09/19 at 14:00 Diagnostic Test (Pha) (Accu-Chek) 1 ea 02 XX Last administered on 01/10/19 01:39; Admin Dose 1 EA; Start 01/10/19 at 02:00 Insulin Aspart (Novolog Insulin Pen) NOVOLOG *MILD* ALGORITHM WITH MEALS BEDTIME SC Last administered on 01/11/19 09:20; Admin Dose 1 UNIT; Start 01/09/19 at 17:55 Amlodipine Besylate (Norvasc) 2.5 mg DAILY PO Last administered on 01/11/19 09:10; Admin Dose 2.5 MG; Start 01/10/19 at 09:00 Aspirin (Halfprin) 81 mg DAILY PO Last administered on 01/11/19 09:10; Admin Dose 81 MG; Start 01/09/19 at 15:00 Atorvastatin Calcium (Lipitor) 40 mg QHS PO Last administered on 01/10/19 21:07; Admin Dose 40 MG; Start 01/09/19 at 21:00 Escitalopram Oxalate (Lexapro) 5 mg DAILY PO Last administered on 01/11/19 09:09; Admin Dose 5 MG; Start 01/10/19 at 09:00 Folic Acid (Folic Acid) 1 mg DAILY PO Last administered on 01/11/19 09:20; Admin Dose 1 MG; Start 01/10/19 at 09:00 Furosemide (Lasix) 20 mg DAILY PO Last administered on 01/11/19 09:09; Admin Dose 20 MG; Start 01/10/19 at 09:00 Losartan Potassium (Cozaar) 50 mg BID PO Last administered on 01/11/19 09:10; Admin Dose 50 MG; Start 01/09/19 at 21:00 Metformin HCl (Glucophage) 500 mg WITH BREAKFAST DINNE PO Last administered on 01/11/19 09:09; Admin Dose 500 MG; Start 01/09/19 at 17:55 Ranitidine HCl (Zantac) 150 mg Q12 PO Last administered on 4/13/19at 09:09; Admin Dose 150 MG; Start 01/09/19 at 21:00 Zolpidem Tartrate (Ambien) 5 mg HS MAY REPEAT X 1 PRN PO INSOMNIA; Start 01/09/19 at 15:30 Diagnostic Test (Pha) (Accu-Chek) 1 ea AC MEALS AND BEDTIME XX Last administered on 01/11/19at 13:00; Admin Dose 1 EA; Start 01/09/19 at 17:25 Miscellaneous Information 1 ea NOTE XX ; Start 01/09/19 at 15:00 Glucose (Glutose) 15 gm Q15M PRN PO DECREASED GLUCOSE; Start 01/09/19 at 15:00 Glucose (Glutose) 22.5 gm Q15M PRN PO DECREASED GLUCOSE; Start 01/09/19 at 15:00 Dextrose (D50w Syringe) 25 ml Q15M PRN IV DECREASED GLUCOSE; Start 01/09/19 at 15:00 Dextrose (D50w Syringe) 50 ml Q15M PRN IV DECREASED GLUCOSE; Start 01/09/19 at 15:00 Glucagon (Glucagen) 1 mg Q15M PRN IM DECREASED GLUCOSE; Start 01/09/19 at 15:00 Glucose (Glutose) 15 gm Q15M PRN BUCCAL DECREASED GLUCOSE; Start 01/09/19 at 15:00 Nitroglycerin (Nitroglycerin (Sl Tab) 0.4 Mg) 1 tab Q5M PRN SL ANGINA; Start 01/09/19 at 20:00 Heparin Sodium (Porcine) (Heparin (5000 Units/1ml)) 5,000 unit BID SC Last administered on 01/11/19 09:19; Admin Dose 5,000 UNIT; Start 01/10/19 at 21:00 Finasteride (Proscar) 5 mg DAILY PO Last administered on 01/11/19at 09:11; Admin Dose 5 MG; Start 01/10/19 at 12:00 Alfuzosin HCl (Uroxatral) 10 mg HS PO Last administered on 01/10/19at 21:08; Admin Dose 10 MG; Start 01/10/19 at 21:00 Bethanechol Chloride (Urecholine) 10 mg TID PO Last administered on 01/11/19 13:12; Admin Dose 10 MG; Start 01/10/19 at 21:00 SAMREEN ZAPATA M.D. Jan 11, 2019 16:51
--- NOTE | 2019-01-11 18:18 | CONS ---
Consult Date/Type/Reason Admit Date/Time Jan 10, 2019 at 16:40 Initial Consult Date 01/10/19 Type of Consultation: Urology Reason for Consultation Urinary retention Requesting Provider: JORGE BOLANOS Date/Time of Note DATE: 01/11/19 TIME: 18:13 Subjective The patient is comfortable but confused at times. His daughter is at his be dside. Objective Vitals Vital Signs Date Temp Pulse Resp B/P (MAP) Pulse Ox O2 O2 Flow FiO2 Time Delivery Rate 01/11/19 Nasal 08:15 Cannula 01/11/19 98.6 76 16 106/56 100 07:11 (73) 01/10/19 2.0 20:00 Intake and Output 01/10/19 01/10/19 01/11/19 1515:00 23:00 07:00 IntakeIntake Total 50 ml 336 ml 190 ml OutputOutput Total 750 ml 1075 ml 862 ml BalanceBalance -700 ml -739 ml -672 ml Exam The patient has been voiding about 100 mL and his postvoid residual is less than 300. He has been started on Urecholine 10 mg 3 times a day. The pelvic ultrasound shows normal size prostate. We will increase Urecholine to 25 mg 3 times daily and continue to monitor his voiding and his postvoid residual. Results/Medications Result Diagram: 01/11/19 0417 01/11/19 0417 Results 24 hrs Laboratory Tests Test 01/10/19 21:05 01/11/19 04:17 01/11/19 07:15 01/11/19 09:07 Bedside Glucose 136 159 White Blood Count 11.8 #H Red Blood Count 3.81 L Hemoglobin 11.1 L Hematocrit 33.9 L Mean Corpuscular 89.0 Volume Mean Corpuscular 29.1 Hemoglobin Mean Corpuscular 32.7 Hemoglobin Concent Red Cell 13.3 Distribution Width Platelet Count 161 Mean Platelet 11.3 H Volume Immature 0.500 H Granulocytes % Neutrophils % 77.3 H Lymphocytes % 9.7 L Monocytes % 11.8 H Eosinophils % 0.4 Basophils % 0.3 Nucleated Red 0.0 Blood Cells % Immature 0.060 H Granulocytes # Neutrophils # 9.1 H Lymphocytes # 1.2 Monocytes # 1.4 H Eosinophils # 0.1 Basophils # 0.0 Nucleated Red 0.0 Blood Cells # Sodium Level 137 Potassium Level 4.1 Chloride Level 102 Carbon Dioxide 28 Level Anion Gap 7 Blood Urea 17 Nitrogen Creatinine 0.75 Est Glomerular > 60 Filtrat Rate mL/min Glucose Level 148 Calcium Level 8.8 Lab Scanned Report REFERENCE LAB Test 01/11/19 13:07 01/11/19 17:43 Bedside Glucose 130 153 Home Meds Reported Medications Hydrocodone/Acetaminophen (Hydrocodone-Acetamin 10-325 mg) 1 Each Tablet, 1 TAB ORAL Q6 PRN for PAIN LEVEL 7-10 01/09/19 Tramadol Hcl* (Ultram*) 50 Mg Tablet, 50 MG PO Q6H PRN for PAIN, TAB 01/01/19 Temazepam* (Temazepam*) 30 Mg Capsule, 30 MG PO HS PRN for INSOMNIA, CAP 01/01/19 Ranitidine Hcl* (Ranitidine Hcl*) 150 Mg Tablet, 150 MG PO Q12, #60 TAB 01/01/19 Metformin Hcl* (Metformin Hcl*) 500 Mg Tablet, 500 MG PO WITH BREAKFAST DINNE, #60 TAB 01/01/19 Losartan Potassium* (Losartan Potassium*) 50 Mg Tablet, 50 MG PO BID, TAB 01/01/19 Lisinopril* (Lisinopril*) 40 Mg Tablet, 40 MG PO DAILY, #30 TAB 01/01/19 Gabapentin* (Gabapentin*) 300 Mg Capsule, 300 MG PO TID, #90 CAP 01/01/19 Furosemide* (Furosemide*) 20 Mg Tablet, 20 MG PO DAILY, #60 TAB 01/01/19 Folic Acid* (Folic Acid*) 1 Mg Tablet, 1 MG PO DAILY, TAB 01/01/19 Escitalopram Oxalate* (Lexapro*) 5 Mg Tablet, 5 MG PO DAILY, #30 TAB 01/01/19 Clopidogrel Bisulfate (Clopidogrel) 75 Mg Tablet, 75 MG PO DAILY, #30 TAB 01/01/19 Atorvastatin* (Atorvastatin*) 40 Mg Tablet, 40 MG PO QHS, #30 TAB 01/01/19 Aspirin (Low Dose Aspirin) 81 Mg Tablet.dr, 81 MG PO DAILY, #30 TAB 01/01/19 Amlodipine Besylate* (Amlodipine Besylate*) 2.5 Mg Tablet, 2.5 MG PO DAILY, #30 TAB 01/01/19 Medications Current Medications Ondansetron HCl (Zofran Inj) 4 mg Q4H PRN IV NAUSEA AND/OR VOMITING Last administered on 01/10/19 10:23; Admin Dose 4 MG; Start 01/09/19 at 08:00 Diphenhydramine HCl (Benadryl) 25 mg Q4H PRN PO ITCHING; Start 01/09/19 at 08:00 Oxycodone HCl (Roxicodone) 5 mg Q4 PO Last administered on 01/11/19 17:20; Admin Dose 5 MG; Start 01/09/19 at 13:00 Hydromorphone HCl (Dilaudid) 1 mg Q3H PRN IV SEVERE PAIN LEVEL 7-10 Last administered on 01/11/19 14:03; Admin Dose 1 MG; Start 01/09/19 at 08:00 Gabapentin (Neurontin) 300 mg TID PO Last administered on 01/11/19 13:12; Admin Dose 300 MG; Start 01/09/19 at 13:00 Ascorbic Acid (Vitamin C) 1,000 mg DAILY PO Last administered on 01/11/19 09:10; Admin Dose 1,000 MG; Start 01/09/19 at 14:00 Cholecalciferol (Vitamin D) 5,000 unit DAILY PO Last administered on 01/11/19 09:11; Admin Dose 5,000 UNIT; Start 01/09/19 at 14:00 Diagnostic Test (Pha) (Accu-Chek) 1 ea 02 XX Last administered on 01/10/19 01:39; Admin Dose 1 EA; Start 01/10/19 at 02:00 Insulin Aspart (Novolog Insulin Pen) NOVOLOG *MILD* ALGORITHM WITH MEALS BEDTIME SC Last administered on 01/11/19 17:47; Admin Dose 1 UNIT; Start 01/09/19 at 17:55 Amlodipine Besylate (Norvasc) 2.5 mg DAILY PO Last administered on 01/11/19 0 9:10; Admin Dose 2.5 MG; Start 01/10/19 at 09:00 Aspirin (Halfprin) 81 mg DAILY PO Last administered on 01/11/19 09:10; Admin Dose 81 MG; Start 01/09/19 at 15:00 Atorvastatin Calcium (Lipitor) 40 mg QHS PO Last administered on 01/10/19 21:07; Admin Dose 40 MG; Start 01/09/19 at 21:00 Escitalopram Oxalate (Lexapro) 5 mg DAILY PO Last administered on 01/11/19 09:09; Admin Dose 5 MG; Start 01/10/19 at 09:00 Folic Acid (Folic Acid) 1 mg DAILY PO Last administered on 01/11/19 09:20; Admin Dose 1 MG; Start 01/10/19 at 09:00 Furosemide (Lasix) 20 mg DAILY PO Last administered on 01/11/19 09:09; Admin Dose 20 MG; Start 01/10/19 at 09:00 Losartan Potassium (Cozaar) 50 mg BID PO Last administered on 01/11/19 09:10; Admin Dose 50 MG; Start 01/09/19 at 21:00 Metformin HCl (Glucophage) 500 mg WITH BREAKFAST DINNE PO Last administered on 01/11/19at 17:44; Admin Dose 500 MG; Start 01/09/19 at 17:55 Ranitidine HCl (Zantac) 150 mg Q12 PO Last administered on 01/11/19 09:09; Admin Dose 150 MG; Start 01/09/19 at 21:00 Zolpidem Tartrate (Ambien) 5 mg HS MAY REPEAT X 1 PRN PO INSOMNIA; Start 01/09/19 at 15:30 Diagnostic Test (Pha) (Accu-Chek) 1 ea AC MEALS AND BEDTIME XX Last administ ered on 01/11/19at 13:00; Admin Dose 1 EA; Start 01/09/19 at 17:25 Miscellaneous Information 1 ea NOTE XX ; Start 01/09/19 at 15:00 Glucose (Glutose) 15 gm Q15M PRN PO DECREASED GLUCOSE; Start 01/09/19 at 15:00 Glucose (Glutose) 22.5 gm Q15M PRN PO DECREASED GLUCOSE; Start 01/09/19 at 15:00 Dextrose (D50w Syringe) 25 ml Q15M PRN IV DECREASED GLUCOSE; Start 01/09/19 at 15:00 Dextrose (D50w Syringe) 50 ml Q15M PRN IV DECREASED GLUCOSE; Start 01/09/19 at 15:00 Glucagon (Glucagen) 1 mg Q15M PRN IM DECREASED GLUCOSE; Start 01/09/19 at 15:00 Glucose (Glutose) 15 gm Q15M PRN BUCCAL DECREASED GLUCOSE; Start 4/11/19 at 15:00 Nitroglycerin (Nitroglycerin (Sl Tab) 0.4 Mg) 1 tab Q5M PRN SL ANGINA; Start 01/09/19 at 20:00 Heparin Sodium (Porcine) (Heparin (5000 Units/1ml)) 5,000 unit BID SC Last administered on 01/11/19at 09:19; Admin Dose 5,000 UNIT; Start 01/10/19 at 21:00 Finasteride (Proscar) 5 mg DAILY PO Last administered on 01/11/19at 09:11; Admin Dose 5 MG; Start 01/10/19 at 12:00 Alfuzosin HCl (Uroxatral) 10 mg HS PO Last administered on 01/10/19at 21:08; Admin Dose 10 MG; Start 01/10/19 at 21:00 Bethanechol Chloride (Urecholine) 10 mg TID PO Last administered on 01/11/19at 13:12; Admin Dose 10 MG; Start 01/10/19 at 21:00 Assessment/Plan Hospital Course (Demo Recall) 68-year-old male on 01/09/2019 underwent: 1. Right iliac crest bone autograft harvest. 2. Right iliac crest bone marrow aspirate concentrate harvest. 3. Right ankle arthrodesis with both allograft and autograft A urological consultation was requested today because the patient was not able to urinate and had urinary retention. Patient denies any prior history of urinary retention and has not been on any medication for his prostate at home prior to his surgery On the examination his abdomen is soft and there is no tenderness. The bladder did not appear distended. The external genitalia are normal. Rectal exam shows prostate to be soft and not enlarged. Pelvic ultrasound showed a normal size prostate The patient has been voiding about 100 mL and his postvoid residual is less than 300. He has been started on Urecholine 10 mg 3 times a day. We will increase the Urecholine to 25 mg 3 times daily and continue to monitor his voiding and his postvoid residual. ALEX JOSHI MD Jan 11, 2019 18:18
[2019-01-11 19:58] VITALS: BP 102/54; PULSE 86; RESP 18
[2019-01-11] MEDS: ATORVASTATIN 40 MG TAB PO SCH (20:19)
[2019-01-11] MEDS: BETHANECHOL 25 MG TAB PO SCH (20:20)
[2019-01-11] MEDS: ALFUZOSIN (SR) 10 MG TAB PO SCH (20:21)
[2019-01-12] MEDS: oxyCODONE 5 MG TAB PO SCH ×5 (01:27→17:22)
[2019-01-12] MEDS: ACCU-CHEK XX SCH ×5 (02:00→21:28)
[2019-01-12] MEDS: MAGNESIUM HYDROXIDE 30ML CUP PO ONE ×2 (02:30→05:08)
[2019-01-12 02:50] VITALS: BP 106/56; PULSE 77; RESP 18
[2019-01-12 07:09] VITALS: BP 115/55; PULSE 80; RESP 15
[2019-01-12] MEDS: INSULIN ASPART [NOVOLOG] 3 ML PEN SC SCH ×4 (07:50→21:00)
[2019-01-12] MEDS: ASPIRIN (EC) 81 MG TAB PO SCH ×2 (09:01→21:30)
[2019-01-12] MEDS: RANITIDINE 150 MG TAB PO SCH ×2 (09:01→21:30)
[2019-01-12] MEDS: FOLIC ACID 1 MG TAB PO SCH (09:01)
[2019-01-12] MEDS: FINASTERIDE 5 MG TAB PO SCH (09:01)
[2019-01-12] MEDS: GABAPENTIN 300 MG CAP PO SCH ×2 (09:01→12:56)
[2019-01-12] MEDS: ESCITALOPRAM 10 MG TAB PO SCH (09:02)
[2019-01-12] MEDS: ASCORBIC ACID 500 MG TAB PO SCH (09:02)
[2019-01-12] MEDS: BETHANECHOL 25 MG TAB PO SCH ×3 (09:02→21:30)
[2019-01-12] MEDS: LOSARTAN 50 MG TAB PO SCH ×2 (09:03→21:29)
[2019-01-12] MEDS: CHOLECALCIFEROL 1,000 UNIT TAB PO SCH (09:03)
[2019-01-12] MEDS: FUROSEMIDE 20 MG TAB PO SCH (09:03)
[2019-01-12] MEDS: HEPARIN 5,000 UNIT/1 ML VIAL SC SCH ×2 (09:04→21:32)
[2019-01-12] MEDS: metFORMIN 500 MG TAB PO SCH ×3 (09:13→17:55)
[2019-01-12] MEDS: AMLODIPINE 2.5 MG TAB PO SCH (09:13)
[2019-01-12] MEDS ORDERED: LORAZEPAM 1 MG TAB PO ONE (12:30)
--- NOTE | 2019-01-12 13:34 | CONS ---
Consult Date/Type/Reason Admit Date/Time Jan 10, 2019 at 16:40 Initial Consult Date 01/10/19 Type of Consultation: Urology Reason for Consultation Urinary retention Requesting Provider: JORGE BOLANOS Date/Time of Note DATE: 01/12/19 TIME: 13:30 Subjective Patient appears to be comfortable, he denies any pain . The nursing staff r eported that he had a 700 mL of urine last night. But since then he has not voided and his bladder scan is not showing 500 mL yet. Objective Vitals Vital Signs Date Temp Pulse Resp B/P (MAP) Pulse Ox O2 O2 Flow FiO2 Time Delivery Rate 01/12/19 Nasal 08:07 Cannula 01/12/19 99.1 80 15 115/55 100 07:09 (75) 01/11/19 2.0 21:39 Intake and Output 01/11/19 01/11/19 01/12/19 1515:00 23:00 07:00 IntakeIntake Total 1050 ml 360 ml OutputOutput Total 1336 ml 700 ml BalanceBalance -286 ml 360 ml -700 ml Exam Abdomen is soft and the bladder does not appear to be distended Results/Medications Result Diagram: 01/12/19 0424 01/12/19 0424 Results 24 hrs Laboratory Tests Test 01/11/19 17:43 01/11/19 20:15 01/12/19 01:29 01/12/19 04:24 Bedside Glucose 153 199 114 White Blood Count 13.3 H Red Blood Count 3.45 L Hemoglobin 10.1 L Hematocrit 31.3 L Mean Corpuscular 90.7 Volume Mean Corpuscular 29.3 Hemoglobin Mean Corpuscular 32.3 Hemoglobin Concent Red Cell 13.2 Distribution Width Platelet Count 167 Mean Platelet Volume 11.0 H Immature 0.400 Granulocytes % Neutrophils % 73.4 Lymphocytes % 14.6 L Monocytes % 9.8 Eosinophils % 1.5 Basophils % 0.3 Nucleated Red Blood 0.0 Cells % Immature 0.050 H Granulocytes # Neutrophils # 9.8 H Lymphocytes # 2.0 Monocytes # 1.3 H Eosinophils # 0.2 Basophils # 0.0 Nucleated Red Blood 0.0 Cells # Sodium Level 135 Potassium Level 4.0 Chloride Level 103 Carbon Dioxide Level 28 Anion Gap 4 L Blood Urea Nitrogen 23 H Creatinine 0.83 Est Glomerular > 60 Filtrat Rate mL/min Glucose Level 136 Calcium Level 8.7 Test 01/12/19 08:44 01/12/19 12:50 Bedside Glucose 129 115 Home Meds Reported Medications Hydrocodone/Acetaminophen (Hydrocodone-Acetamin 10-325 mg) 1 Each Tablet, 1 TAB ORAL Q6 PRN for PAIN LEVEL 7-10 01/09/19 Tramadol Hcl* (Ultram*) 50 Mg Tablet, 50 MG PO Q6H PRN for PAIN, TAB 01/01/19 Temazepam* (Temazepam*) 30 Mg Capsule, 30 MG PO HS PRN for INSOMNIA, CAP 01/01/19 Ranitidine Hcl* (Ranitidine Hcl*) 150 Mg Tablet, 150 MG PO Q12, #60 TAB 01/01/19 Metformin Hcl* (Metformin Hcl*) 500 Mg Tablet, 500 MG PO WITH BREAKFAST DINNE, #60 TAB 01/01/19 Losartan Potassium* (Losartan Potassium*) 50 Mg Tablet, 50 MG PO BID, TAB 01/01/19 Lisinopril* (Lisinopril*) 40 Mg Tablet, 40 MG PO DAILY, #30 TAB 01/01/19 Gabapentin* (Gabapentin*) 300 Mg Capsule, 300 MG PO TID, #90 CAP 01/01/19 Furosemide* (Furosemide*) 20 Mg Tablet, 20 MG PO DAILY, #60 TAB 01/01/19 Folic Acid* (Folic Acid*) 1 Mg Tablet, 1 MG PO DAILY, TAB 01/01/19 Escitalopram Oxalate* (Lexapro*) 5 Mg Tablet, 5 MG PO DAILY, #30 TAB 01/01/19 Clopidogrel Bisulfate (Clopidogrel) 75 Mg Tablet, 75 MG PO DAILY, #30 TAB 01/01/19 Atorvastatin* (Atorvastatin*) 40 Mg Tablet, 40 MG PO QHS, #30 TAB 01/01/19 Aspirin (Low Dose Aspirin) 81 Mg Tablet.dr, 81 MG PO DAILY, #30 TAB 01/01/19 Amlodipine Besylate* (Amlodipine Besylate*) 2.5 Mg Tablet, 2.5 MG PO DAILY, #30 TAB 01/01/19 Medications Current Medications Ondansetron HCl (Zofran Inj) 4 mg Q4H PRN IV NAUSEA AND/OR VOMITING Last administered on 01/10/19at 10:23; Admin Dose 4 MG; Start 01/09/19 at 08:00 Diphenhydramine HCl (Benadryl) 25 mg Q4H PRN PO ITCHING; Start 01/09/19 at 08:00 Oxycodone HCl (Roxicodone) 5 mg Q4 PO Last administered on 01/12/19 12:46; Admin Dose 5 MG; Start 01/09/19 at 13:00 Gabapentin (Neurontin) 300 mg TID PO Last administered on 01/12/19 12:56; Admin Dose 300 MG; Start 01/09/19 at 13:00 Ascorbic Acid (Vitamin C) 1,000 mg DAILY PO Last administered on 01/12/19 09:02; Admin Dose 1,000 MG; Start 01/09/19 at 14:00 Cholecalciferol (Vitamin D) 5,000 unit DAILY PO Last administered on 01/12/19 09:03; Admin Dose 5,000 UNIT; Start 01/09/19 at 14:00 Diagnostic Test (Pha) (Accu-Chek) 1 ea 02 XX Last administered on 01/10/19 01:39; Admin Dose 1 EA; Start 01/10/19 at 02:00 Insulin Aspart (Novolog Insulin Pen) NOVOLOG *MILD* ALGORITHM WITH MEALS BEDTIME SC Last administered on 01/11/19 20:27; Admin Dose 1 UNIT; Start 01/09/19 at 17:55 Amlodipine Besylate (Norvasc) 2.5 mg DAILY PO Last administered on 01/12/19 09:13; Admin Dose 2.5 MG; Start 01/10/19 at 09:00 Aspirin (Halfprin) 81 mg DAILY PO Last administered on 01/12/19 09:01; Admin Dose 81 MG; Start 01/09/19 at 15:00 Atorvastatin Calcium (Lipitor) 40 mg QHS PO Last administered on 01/11/19 20:19; Admin Dose 40 MG; Start 01/09/19 at 21:00 Escitalopram Oxalate (Lexapro) 5 mg DAILY PO Last administered on 01/12/19 09:02; Admin Dose 5 MG; Start 01/10/19 at 09:00 Folic Acid (Folic Acid) 1 mg DAILY PO Last administered on 01/12/19 09:01; Admin Dose 1 MG; Start 01/10/19 at 09:00 Furosemide (Lasix) 20 mg DAILY PO Last administered on 01/12/19at 09:03; Admin Dose 20 MG; Start 01/10/19 at 09:00 Losartan Potassium (Cozaar) 50 mg BID PO Last administered on 01/12/19 09:03; Admin Dose 50 MG; Start 01/09/19 at 21:00 Metformin HCl (Glucophage) 500 mg WITH BREAKFAST DINNE PO Last administered on 01/12/19 09:13; Admin Dose 500 MG; Start 01/09/19 at 17:55 Ranitidine HCl (Zantac) 150 mg Q12 PO Last administered on 01/12/19 09:01; Admin Dose 150 MG; Start 01/09/19 at 21:00 Zolpidem Tartrate (Ambien) 5 mg HS MAY REPEAT X 1 PRN PO INSOMNIA; Start 01/09/19 at 15:30 Diagnostic Test (Pha) (Accu-Chek) 1 ea AC MEALS AND BEDTIME XX Last administered on 01/12/19at 11:10; Admin Dose 1 EA; Start 01/09/19 at 17:25 Miscellaneous Information 1 ea NOTE XX ; Start 01/09/19 at 15:00 Glucose (Glutose) 15 gm Q15M PRN PO DECREASED GLUCOSE; Start 01/09/19 at 15:00 Glucose (Glutose) 22.5 gm Q15M PRN PO DECREASED GLUCOSE; Start 01/09/19 at 15:00 Dextrose (D50w Syringe) 25 ml Q15M PRN IV DECREASED GLUCOSE; Start 01/09/19 at 15:00 Dextrose (D50w Syringe) 50 ml Q15M PRN IV DECREASED GLUCOSE; Start 01/09/19 at 15:00 Glucagon (Glucagen) 1 mg Q15M PRN IM DECREASED GLUCOSE; Start 01/09/19 at 15:00 Glucose (Glutose) 15 gm Q15M PRN BUCCAL DECREASED GLUCOSE; Start 01/09/19 at 15:00 Nitroglycerin (Nitroglycerin (Sl Tab) 0.4 Mg) 1 tab Q5M PRN SL ANGINA; Start 01/09/19 at 20:00 Heparin Sodium (Porcine) (Heparin (5000 Units/1ml)) 5,000 unit BID SC Last administered on 01/12/19at 09:04; Admin Dose 5,000 UNIT; Start 01/10/19 at 21:00 Finasteride (Proscar) 5 mg DAILY PO Last administered on 01/12/19at 09:01; Admin Dose 5 MG; Start 01/10/19 at 12:00 Alfuzosin HCl (Uroxatral) 10 mg HS PO Last administered on 01/11/19at 20:21; Admin Dose 10 MG; Start 01/10/19 at 21:00 Bethanechol Chloride (Urecholine) 25 mg TID PO Last administered on 01/12/19at 12:56; Admin Dose 25 MG; Start 01/11/19 at 21:00 Assessment/Plan Hospital Course (Demo Recall) 68-year-old male on 01/09/2019 underwent: 1. Right iliac crest bone autograft harvest. 2. Right iliac crest bone marrow aspirate concentrate harvest. 3. Right ankle arthrodesis with both allograft and autograft A urological consultation was requested today because the patient was not able to urinate and had urinary retention. Patient denies any prior history of urinary retention and has not been on any medication for his prostate at home prior to his surgery On the examination his abdomen is soft and there is no tenderness. The bladder did not appear distended. The external genitalia are normal. Even though the patient was started on Urecholine 25 mg 3 times a day is still not able to urinate and empty his bladder on his own. His prostate is not large to cause hi m the problem. Therefore the problem is most likely neurogenic or side effect of medications. We will continue to monitor his voiding and check his postvoid residual and do straight cath when the postvoid residual is over 300 mL and when he does not void in 6-8 hours and the bladder scan shows over 500 mL. ALEX JOSHI MD Jan 12, 2019 13:34
[2019-01-12 13:52] VITALS: BP 108/58; PULSE 79; RESP 14
--- NOTE | 2019-01-12 14:33 | CONS ---
Assessment/Plan Assessment/Plan Assessment/Plan (Daily) Coronary artery disease, status post coronary artery bypass graft surgery in 2017. Hypertension Postoperative status post ankle arthrodesis. Diabetes mellitus. Dyslipidemia. Continue Lasix Continue Losartan Continue Norvasc Continue Insulin Continue Heparin Consultation Date/Type/Reason Admit Date/Time Jan 10, 2019 at 16:40 Initial Consult Date 01/10/19 Type of Consult Cardiology Requesting Provider: JORGE BOLANOS Date/Time of Note DATE: 01/12/19 TIME: 14:32 Exam/Review of Systems Vital Signs Vitals Vital Signs Date Temp Pulse Resp B/P (MAP) Pulse Ox O2 O2 Flow FiO2 Time Delivery Rate 01/12/19 98.2 79 14 108/58 100 Room Air 13:52 (75) 01/11/19 2.0 21:39 Intake and Output 01/11/19 01/11/19 01/12/19 1515:00 23:00 07:00 IntakeIntake Total 1050 ml 360 ml OutputOutput Total 1336 ml 700 ml BalanceBalance -286 ml 360 ml -700 ml Exam Exam Constitutional: alert Head: normocephalic, atraumatic Neck: supple, non-tender Respiratory: clear to auscultation (no m/r/g) Cardiovascular: regular rate and rhythm Gastrointestinal: soft, nl liver, spleen Extremities: normal pulses Labs Result Diagram: 01/12/19 0424 01/12/19 0424 Results 24hrs Laboratory Tests Test 01/11/19 17:43 01/11/19 20:15 01/12/19 01:29 01/12/19 04:24 Bedside Glucose 153 199 114 White Blood Count 13.3 H Red Blood Count 3.45 L Hemoglobin 10.1 L Hematocrit 31.3 L Mean Corpuscular 90.7 Volume Mean Corpuscular 29.3 Hemoglobin Mean Corpuscular 32.3 Hemoglobin Concent Red Cell 13.2 Distribution Width Platelet Count 167 Mean Platelet Volume 11.0 H Immature 0.400 Granulocytes % Neutrophils % 73.4 Lymphocytes % 14.6 L Monocytes % 9.8 Eosinophils % 1.5 Basophils % 0.3 Nucleated Red Blood 0.0 Cells % Immature 0.050 H Granulocytes # Neutrophils # 9.8 H Lymphocytes # 2.0 Monocytes # 1.3 H Eosinophils # 0.2 Basophils # 0.0 Nucleated Red Blood 0.0 Cells # Sodium Level 135 Potassium Level 4.0 Chloride Level 103 Carbon Dioxide Level 28 Anion Gap 4 L Blood Urea Nitrogen 23 H Creatinine 0.83 Est Glomerular > 60 Filtrat Rate mL/min Glucose Level 136 Calcium Level 8.7 Test 01/12/19 08:44 01/12/19 12:50 Bedside Glucose 129 115 Medications Medications Current Medications Ondansetron HCl (Zofran Inj) 4 mg Q4H PRN IV NAUSEA AND/OR VOMITING Last administered on 01/10/19 10:23; Admin Dose 4 MG; Start 01/09/19 at 08:00 Diphenhydramine HCl (Benadryl) 25 mg Q4H PRN PO ITCHING; Start 01/09/19 at 08:00 Oxycodone HCl (Roxicodone) 5 mg Q4 PO Last administered on 01/12/19 12:46; Admin Dose 5 MG; Start 01/09/19 at 13:00 Gabapentin (Neurontin) 300 mg TID PO Last administered on 01/12/19 12:56; Admin Dose 300 MG; Start 01/09/19 at 13:00 Ascorbic Acid (Vitamin C) 1,000 mg DAILY PO Last administered on 01/12/19 09:02; Admin Dose 1,000 MG; Start 01/09/19 at 14:00 Cholecalciferol (Vitamin D) 5,000 unit DAILY PO Last administered on 01/12/19 09:03; Admin Dose 5,000 UNIT; Start 01/09/19 at 14:00 Diagnostic Test (Pha) (Accu-Chek) 1 ea 02 XX Last administered on 01/10/19at 01:39; Admin Dose 1 EA; Start 01/10/19 at 02:00 Insulin Aspart (Novolog Insulin Pen) NOVOLOG *MILD* ALGORITHM WITH MEALS BEDTIME SC Last administered on 01/11/19 20:27; Admin Dose 1 UNIT; Start 01/09/19 at 17:55 Amlodipine Besylate (Norvasc) 2.5 mg DAILY PO Last administered on 01/12/19 09:13; Admin Dose 2.5 MG; Start 01/10/19 at 09:00 Aspirin (Halfprin) 81 mg DAILY PO Last administered on 01/12/19 09:01; Admin Dose 81 MG; Start 01/09/19 at 15:00 Atorvastatin Calcium (Lipitor) 40 mg QHS PO Last administered on 01/11/19 20:19; Admin Dose 40 MG; Start 01/09/19 at 21:00 Escitalopram Oxalate (Lexapro) 5 mg DAILY PO Last administered on 01/12/19 09:02; Admin Dose 5 MG; Start 01/10/19 at 09:00 Folic Acid (Folic Acid) 1 mg DAILY PO Last administered on 01/12/19 09:01; Adm in Dose 1 MG; Start 01/10/19 at 09:00 Furosemide (Lasix) 20 mg DAILY PO Last administered on 01/12/19 09:03; Admin Dose 20 MG; Start 01/10/19 at 09:00 Losartan Potassium (Cozaar) 50 mg BID PO Last administered on 01/12/19 09:03; Admin Dose 50 MG; Start 01/09/19 at 21:00 Metformin HCl (Glucophage) 500 mg WITH BREAKFAST DINNE PO Last administered on 01/12/19 09:13; Admin Dose 500 MG; Start 01/09/19 at 17:55 Ranitidine HCl (Zantac) 150 mg Q12 PO Last administered on 01/12/19 09:01; Admin Dose 150 MG; Start 01/09/19 at 21:00 Zolpidem Tartrate (Ambien) 5 mg HS MAY REPEAT X 1 PRN PO INSOMNIA; Start 01/09/19 at 15:30 Diagnostic Test (Pha) (Accu-Chek) 1 ea AC MEALS AND BEDTIME XX Last ad ministered on 01/12/19at 11:10; Admin Dose 1 EA; Start 01/09/19 at 17:25 Miscellaneous Information 1 ea NOTE XX ; Start 01/09/19 at 15:00 Glucose (Glutose) 15 gm Q15M PRN PO DECREASED GLUCOSE; Start 01/09/19 at 15:00 Glucose (Glutose) 22.5 gm Q15M PRN PO DECREASED GLUCOSE; Start 01/09/19 at 15:00 Dextrose (D50w Syringe) 25 ml Q15M PRN IV DECREASED GLUCOSE; Start 01/09/19 at 15:00 Dextrose (D50w Syringe) 50 ml Q15M PRN IV DECREASED GLUCOSE; Start 01/09/19 at 15:00 Glucagon (Glucagen) 1 mg Q15M PRN IM DECREASED GLUCOSE; Start 01/09/19 at 15:00 Glucose (Glutose) 15 gm Q15M PRN BUCCAL DECREASED GLUCOSE; Start 01/09/19 at 15:00 Nitroglycerin (Nitroglycerin (Sl Tab) 0.4 Mg) 1 tab Q5M PRN SL ANGINA; Start 01/09/19 at 20:00 Heparin Sodium (Porcine) (Heparin (5000 Units/1ml)) 5,000 unit BID SC Last administered on 01/12/19at 09:04; Admin Dose 5,000 UNIT; Start 01/10/19 at 21:00 Finasteride (Proscar) 5 mg DAILY PO Last administered on 01/12/19at 09:01; Admin Dose 5 MG; Start 01/10/19 at 12:00 Alfuzosin HCl (Uroxatral) 10 mg HS PO Last administered on 01/11/19at 20:21; Admin Dose 10 MG; Start 01/10/19 at 21:00 Bethanechol Chloride (Urecholine) 25 mg TID PO Last administered on 01/12/19at 12:56; Admin Dose 25 MG; Start 01/11/19 at 21:00 SAMREEN ZAPATA M.D. Jan 12, 2019 14:33
--- NOTE | 2019-01-12 18:12 | PN ---
Date/Time of Note Date/Time of Note DATE: 01/12/19 TIME: 18:04 Assessment/Plan VTE Prophylaxis Risk score (from Ns)>0 risk: 10 SCD applied (from Ns): Yes Pharmacological prophylaxis: heparin Lines/Catheters IV Catheter Type (from Nrsg): Saline Lock Urinary Cath still in place: No Assessment/Plan Hospital Course 1. Delirium secondary to inability to sleep and polypharmacy Patient had not slept for several days but did sleep today Per daughter patient has mild cognitive impairment/mild dementia at baseline which increases probability of delirium Ativan as needed for severe anxiety Reorient as able Reassurance has been given to daughter No indication for brain imaging at this time Anticipate improvement 2. Bilateral knee pain possibly secondary to pseudogout Follow-up on bilateral knee x-rays Pain control 3. Constipation Colace and senna 4. Chest pain-resolved No evidence of ACS Etiology was likely secondary to anxiety Echo with preserved EF and stage I diastolic heart failure 5. History of coronary disease status post CABG Continue home cardiac meds 6. Urinary retention secondary to surgery and delirium Patient did urinate a small amount today Anticipate resolution within the next several days 7. History of depression and anxiety Lexapro Ativan as needed 8. Hypertension Continue home meds 9. Diabetes Continue metformin and sliding scale 10. 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 Follow-up on Ortho recommendations Pain control, family has requested to change pain meds to Percocet Prophylaxis: Heparin DC planning: Anticipate [facility] in the coming days Result Diagram: 01/12/19 0424 01/12/19 0424 Results 24hrs Laboratory Tests Test 01/11/19 20:15 01/12/19 01:29 01/12/19 04:24 01/12/19 08:44 Bedside Glucose 199 114 129 White Blood Count 13.3 H Red Blood Count 3.45 L Hemoglobin 10.1 L Hematocrit 31.3 L Mean Corpuscular 90.7 Volume Mean Corpuscular 29.3 Hemoglobin Mean Corpuscular 32.3 Hemoglobin Concent Red Cell 13.2 Distribution Width Platelet Count 167 Mean Platelet Volume 11.0 H Immature 0.400 Granulocytes % Neutrophils % 73.4 Lymphocytes % 14.6 L Monocytes % 9.8 Eosinophils % 1.5 Basophils % 0.3 Nucleated Red Blood 0.0 Cells % Immature 0.050 H Granulocytes # Neutrophils # 9.8 H Lymphocytes # 2.0 Monocytes # 1.3 H Eosinophils # 0.2 Basophils # 0.0 Nucleated Red Blood 0.0 Cells # Sodium Level 135 Potassium Level 4.0 Chloride Level 103 Carbon Dioxide Level 28 Anion Gap 4 L Blood Urea Nitrogen 23 H Creatinine 0.83 Est Glomerular > 60 Filtrat Rate mL/min Glucose Level 136 Calcium Level 8.7 Test 01/12/19 12:50 01/12/19 17:26 Bedside Glucose 115 144 Subjective 24 Hr Interval Summary Constitutional: disoriented Exam/Review of Systems Exam Vitals Vital Signs Date Temp Pulse Resp B/P (MAP) Pulse Ox O2 O2 Flow FiO2 Time Delivery Rate 01/12/19 98.2 79 14 108/58 100 Room Air 13:52 (75) 01/11/19 2.0 21:39 Intake and Output 01/11/19 01/11/19 01/12/19 1414:59 22:59 06:59 IntakeIntake Total 850 ml 560 ml OutputOutput Total 986 ml 350 ml 700 ml BalanceBalance -136 ml 210 ml -700 ml Psych: confusion Respiratory: clear to auscultation Cardiovascular: regular rate and rhythm Gastrointestinal: soft; No distended Musculoskeletal: nl extremities to inspection Results Results 24hrs Laboratory Tests Test 01/11/19 20:15 01/12/19 01:29 01/12/19 04:24 01/12/19 08:44 Bedside Glucose 199 114 129 White Blood Count 13.3 H Red Blood Count 3.45 L Hemoglobin 10.1 L Hematocrit 31.3 L Mean Corpuscular 90.7 Volume Mean Corpuscular 29.3 Hemoglobin Mean Corpuscular 32.3 Hemoglobin Concent Red Cell 13.2 Distribution Width Platelet Count 167 Mean Platelet Volume 11.0 H Immature 0.400 Granulocytes % Neutrophils % 73.4 Lymphocytes % 14.6 L Monocytes % 9.8 Eosinophils % 1.5 Basophils % 0.3 Nucleated Red Blood 0.0 Cells % Immature 0.050 H Granulocytes # Neutrophils # 9.8 H Lymphocytes # 2.0 Monocytes # 1.3 H Eosinophils # 0.2 Basophils # 0.0 Nucleated Red Blood 0.0 Cells # Sodium Level 135 Potassium Level 4.0 Chloride Level 103 Carbon Dioxide Level 28 Anion Gap 4 L Blood Urea Nitrogen 23 H Creatinine 0.83 Est Glomerular > 60 Filtrat Rate mL/min Glucose Level 136 Calcium Level 8.7 Test 01/12/19 12:50 01/12/19 17:26 Bedside Glucose 115 144 Medications Medication Current Medications Ondansetron HCl (Zofran Inj) 4 mg Q4H PRN IV NAUSEA AND/OR VOMITING Last ad ministered on 01/10/19 10:23; Admin Dose 4 MG; Start 01/09/19 at 08:00 Diphenhydramine HCl (Benadryl) 25 mg Q4H PRN PO ITCHING; Start 01/09/19 at 08:00 Oxycodone HCl (Roxicodone) 5 mg Q4 PO Last administered on 01/12/19 17:22; Admin Dose 5 MG; Start 01/09/19 at 13:00 Gabapentin (Neurontin) 300 mg TID PO Last administered on 01/12/19 12:56; Admin Dose 300 MG; Start 01/09/19 at 13:00 Ascorbic Acid (Vitamin C) 1,000 mg DAILY PO Last administered on 01/12/19 09:02; Admin Dose 1,000 MG; Start 01/09/19 at 14:00 Cholecalciferol (Vitamin D) 5,000 unit DAILY PO Last administered on 01/12/19 09:03; Admin Dose 5,000 UNIT; Start 01/09/19 at 14:00 Diagnostic Test (Pha) (Accu-Chek) 1 ea 02 XX Last administered on 01/10/19 01:39; Admin Dose 1 EA; Start 01/10/19 at 02:00 Insulin Aspart (Novolog Insulin Pen) NOVOLOG *MILD* ALGORITHM WITH MEALS BEDTIME SC Last administered on 01/11/19 20:27; Admin Dose 1 UNIT; Start 01/09/19 at 17:55 Amlodipine Besylate (Norvasc) 2.5 mg DAILY PO Last administered on 01/12/19 09:13; Admin Dose 2.5 MG; Start 01/10/19 at 09:00 Aspirin (Halfprin) 81 mg DAILY PO Last administered on 01/12/19 09:01; Admin Dose 81 MG; Start 01/09/19 at 15:00 Atorvastatin Calcium (Lipitor) 40 mg QHS PO Last administered on 01/11/19 20:19; Admin Dose 40 MG; Start 01/09/19 at 21:00 Escitalopram Oxalate (Lexapro) 5 mg DAILY PO Last administered on 01/12/19 09:02; Admin Dose 5 MG; Start 01/10/19 at 09:00 Folic Acid (Folic Acid) 1 mg DAILY PO Last administered on 01/12/19 09:01; Admin Dose 1 MG; Start 01/10/19 at 09:00 Furosemide (Lasix) 20 mg DAILY PO Last administered on 01/12/19 09:03; Admin Dose 20 MG; Start 01/10/19 at 09:00 Losartan Potassium (Cozaar) 50 mg BID PO Last administered on 01/12/19 09:03; Admin Dose 50 MG; Start 01/09/19 at 21:00 Metformin HCl (Glucophage) 500 mg WITH BREAKFAST DINNE PO Last administered on 01/12/19 17:23; Admin Dose 500 MG; Start 01/09/19 at 17:55 Ranitidine HCl (Zantac) 150 mg Q12 PO Last administered on 01/12/19 09:01; Admin Dose 150 MG; Start 01/09/19 at 21:00 Zolpidem Tartrate (Ambien) 5 mg HS MAY REPEAT X 1 PRN PO INSOMNIA; Start 01/09/19 at 15:30 Diagnostic Test (Pha) (Accu-Chek) 1 ea AC MEALS AND BEDTIME XX Last administered on 01/12/19at 17:40; Admin Dose 1 EA; Start 01/09/19 at 17:25 Miscellaneous Information 1 ea NOTE XX ; Start 01/09/19 at 15:00 Glucose (Glutose) 15 gm Q15M PRN PO DECREASED GLUCOSE; Start 01/09/19 at 15:00 Glucose (Glutose) 22.5 gm Q15M PRN PO DECREASED GLUCOSE; Start 01/09/19 at 15:00 Dextrose (D50w Syringe) 25 ml Q15M PRN IV DECREASED GLUCOSE; Start 01/09/19 at 15:00 Dextrose (D50w Syringe) 50 ml Q15M PRN IV DECREASED GLUCOSE; Start 01/09/19 at 15:00 Glucagon (Glucagen) 1 mg Q15M PRN IM DECREASED GLUCOSE; Start 01/09/19 at 15:00 Glucose (Glutose) 15 gm Q15M PRN BUCCAL DECREASED GLUCOSE; Start 01/09/19 at 15:00 Nitroglycerin (Nitroglycerin (Sl Tab) 0.4 Mg) 1 tab Q5M PRN SL ANGINA; Start 01/09/19 at 20:00 Heparin Sodium (Porcine) (Heparin (5000 Units/1ml)) 5,000 unit BID SC Last administered on 01/12/19 09:04; Admin Dose 5,000 UNIT; Start 01/10/19 at 21:00 Finasteride (Proscar) 5 mg DAILY PO Last administered on 01/12/19at 09:01; Admin Dose 5 MG; Start 01/10/19 at 12:00 Alfuzosin HCl (Uroxatral) 10 mg HS PO Last administered on 01/11/19at 20:21; Admin Dose 10 MG; Start 01/10/19 at 21:00 Bethanechol Chloride (Urecholine) 25 mg TID PO Last administered on 01/12/19 12:56; Admin Dose 25 MG; Start 01/11/19 at 21:00 JATINDER ROSE Jan 12, 2019 18:12
[2019-01-12] MEDS ORDERED: OXYCODONE/ACETAMINOPHEN (5/325) TAB PO PRN (18:30)
[2019-01-12] MEDS ORDERED: LORAZEPAM 1 MG TAB PO PRN (18:30)
[2019-01-12] MEDS ORDERED: MAGNESIUM SULFATE 2 GM/50 ML 50 ML IVPB ONE (19:00)
[2019-01-12] MEDS: D5W-0.45 NACL + KCL 20 MEQ 1,000 ML IV SCH (19:11)
[2019-01-12 19:18] VITALS: BP 134/60; PULSE 81; RESP 16
[2019-01-12] MEDS ORDERED: HYDROCODONE/APAP (5/325) TAB PO PRN (20:00)
--- NOTE | 2019-01-12 20:44 | PN ---
Date/Time of Note Date/Time of Note DATE: 01/10/19 TIME: 12:33 Assessment/Plan Lines/Catheters IV Catheter Type (from Nrsg): Saline Lock Olivarez in Place (from Nrsg): No Assessment/Plan Assessment/Plan SUNDAY NOTE - 01/12/2019 POD#1 s/p R Ankle Arthrodesis with ICBG - NWB to the RLE - PO / IV Pain meds - Dr Trejo/Farrukh Primary - Urology consulted for urinary retention - PT to [facility] - Likely to SNF by Sunday if cleared ---- Rich Maravilla MD Subjective 24 Hr Interval Summary SUNDAY - 01/10/2019 Patient is doing very well. Communicative and grateful and very pleasant with minimal complaints. Pain is well controlled Feeding: advancing diet Pain Control: mild Exam/Review of Systems Vital Signs Vitals Vital Signs Date Temp Pulse Resp B/P (MAP) Pulse Ox O2 O2 Flow FiO2 Time Delivery Rate 01/12/19 98.0 81 16 134/60 97 Nasal 3.0 19:18 (84) Cannula Intake and Output 01/11/19 01/11/19 01/12/19 1515:00 23:00 07:00 IntakeIntake Total 1050 ml 360 ml OutputOutput Total 1336 ml 700 ml BalanceBalance -286 ml 360 ml -700 ml Exam Musculoskeletal: other (RLE/ splint intact, toes wiggle, cr brisk, silt to the exposed toes d/m/p/fdws/l) Results Result Diagram: 01/12/19 0424 01/12/19 0424 YOSI MARAVILLA MD Jan 12, 2019 20:44
--- NOTE | 2019-01-12 20:47 | PN ---
Date/Time of Note Date/Time of Note DATE: 01/12/19 TIME: 20:44 Assessment/Plan Lines/Catheters IV Catheter Type (from Nrsg): Saline Lock Olivarez in Place (from Nrsg): No Assessment/Plan Assessment/Plan SUNDAY NOTE - 01/14/2019 POD#3 s/p R Ankle Arthrodesis with ICBG, now with confusion likely related to lack of sleep delirium with urinary retention - NWB to the RLE - PO / IV Pain meds - Gabapentin DC'd - Dr Trejo/Farrukh Primary - Neurology Consulted for evaluation of delirium that came on today - Urology consulted for urinary retention - Olivarez to be placed this evening - PT to GT - ASA 81 mg po BID for DVT prophylaxis ---- Rich Maravilla MD Subjective 24 Hr Interval Summary SUNDAY - 01/10/2019 Patient very confused this evening but able to recognize me. He is hallucinating in the room with belief someone is at the foot of the bed Exam/Review of Systems Vital Signs Vitals Vital Signs Date Temp Pulse Resp B/P (MAP) Pulse Ox O2 O2 Flow FiO2 Time Delivery Rate 01/12/19 98.0 81 16 134/60 97 Nasal 3.0 19:18 (84) Cannula Intake and Output 01/11/19 01/11/19 01/12/19 1515:00 23:00 07:00 IntakeIntake Total 1050 ml 360 ml OutputOutput Total 1336 ml 700 ml BalanceBalance -286 ml 360 ml -700 ml Exam Psych: confusion Musculoskeletal: other (RLE/ splint intact, toes wiggle, cr brisk, silt to the exposed toes d/m/p/fdws/l, Prevena wound vac intact) Results Result Diagram: 01/12/19 0424 01/12/19 0424 YOSI MARAVILLA MD Jan 12, 2019 20:47
[2019-01-12] MEDS ORDERED: HYDROCODONE/APAP (10/325) TAB PO PRN (21:00)
[2019-01-12] MEDS ORDERED: DIPHENHYDRAMINE 50 MG CAP PO PRN (21:00)
[2019-01-12] MEDS: DOCUSATE SODIUM 100 MG CAP PO SCH (21:29)
[2019-01-12] MEDS: ALFUZOSIN (SR) 10 MG TAB PO SCH (21:29)
[2019-01-12] MEDS: ATORVASTATIN 40 MG TAB PO SCH (21:30)
[2019-01-12] MEDS: SENNA TAB PO SCH (21:30)
[2019-01-12] MEDS ORDERED: HALOPERIDOL 5 MG INJ IM ONE (23:30)
[2019-01-13] MEDS ORDERED: LORAZEPAM 2 MG INJ IV ONE (01:30)
[2019-01-13] MEDS ORDERED: LORAZEPAM 2 MG INJ IV PRN ×2 (01:30→02:30)
[2019-01-13] MEDS: ACCU-CHEK XX SCH ×5 (02:00→21:00)
[2019-01-13] MEDS: CHOLECALCIFEROL 1,000 UNIT TAB PO SCH (09:02)
[2019-01-13] MEDS: metFORMIN 500 MG TAB PO SCH (09:02)
[2019-01-13] MEDS: ASPIRIN (EC) 81 MG TAB PO SCH ×2 (09:03→22:23)
[2019-01-13] MEDS: SENNA TAB PO SCH (09:03)
[2019-01-13] MEDS: RANITIDINE 150 MG TAB PO SCH (09:03)
[2019-01-13] MEDS: FINASTERIDE 5 MG TAB PO SCH (09:03)
[2019-01-13] MEDS: BETHANECHOL 25 MG TAB PO SCH (09:03)
[2019-01-13] MEDS: ESCITALOPRAM 10 MG TAB PO SCH (09:03)
[2019-01-13] MEDS: ASCORBIC ACID 500 MG TAB PO SCH (09:03)
[2019-01-13] MEDS: FUROSEMIDE 20 MG TAB PO SCH (09:04)
[2019-01-13] MEDS: DOCUSATE SODIUM 100 MG CAP PO SCH ×2 (09:04→22:22)
[2019-01-13] MEDS: AMLODIPINE 2.5 MG TAB PO SCH (09:05)
[2019-01-13] MEDS: FOLIC ACID 1 MG TAB PO SCH (09:05)
[2019-01-13] MEDS: LOSARTAN 50 MG TAB PO SCH (09:05)
[2019-01-13] MEDS: HEPARIN 5,000 UNIT/1 ML VIAL SC SCH ×2 (09:06→22:38)
[2019-01-13] MEDS: INSULIN ASPART [NOVOLOG] 3 ML PEN SC SCH ×4 (09:07→21:00)
[2019-01-13] MEDS: D5W-0.45 NACL + KCL 20 MEQ 1,000 ML IV SCH (09:21)
[2019-01-13 09:27] VITALS: BP 146/63; PULSE 88; RESP 18
--- NOTE | 2019-01-13 10:18 | PN ---
Date/Time of Note Date/Time of Note DATE: 01/13/19 TIME: 10:17 Assessment/Plan Lines/Catheters IV Catheter Type (from Nrsg): Peripheral IV Olivarez in Place (from Nrsg): Yes Assessment/Plan Assessment/Plan POD#4 s/p R Ankle Arthrodesis with ICBG, now with confusion likely related to lack of sleep delirium with urinary retention. C/o knee pain with negative xrays, likely stiff - Swallow study ordered - Dietary consult ordered - NWB to the RLE - PO / IV Pain meds - Gabapentin DC'd - Head CT pending - Dr Trejo/Farrukh Primary - Neurology Consulted for evaluation of delirium that came on today - Urology consulted for urinary retention - PT to GT - ASA 81 mg po BID for DVT prophylaxis ---- Rich Maravilla MD Subjective 24 Hr Interval Summary Slightly better cognition today but still confused Exam/Review of Systems Vital Signs Vitals Vital Signs Date Temp Pulse Resp B/P (MAP) Pulse Ox O2 O2 Flow FiO2 Time Delivery Rate 01/13/19 98.4 76 18 131/63 99 Nasal 20:29 (85) Cannula 01/13/19 2.0 19:12 Intake and Output 01/12/19 01/12/19 01/13/19 1515:00 23:00 07:00 IntakeIntake Total 500 ml 600 ml OutputOutput Total 25 ml 1100 ml BalanceBalance 475 ml -500 ml Exam Musculoskeletal: other (RLE/ splint removed, min swelling seen over the wound , intact silt to m/d/l/p/fdws, toes wiggle, cr brisk, Prevena wound vac removed) Results Result Diagram: 01/13/1928 01/13/1928 YOSI MARAVILLA MD Jan 13, 2019 10:17
--- NOTE | 2019-01-13 11:05 | CONS ---
Assessment/Plan Assessment/Plan Hospital Course 68 yo M with reported hx of mild cognitive impairment, CABG and other comorbidities who presents for an elective R ankle arthrodesis. The pt was noted to be protractedly encephalopathic, for which neurology is consulted. This could be clinically consistent with an acute on chronic encephalopathy. Isamar-operative stroke is not yet excluded. P: Await HCT for further characterization Ok to cont Plavix for stroke prevention, per ops; LDL is at goal. Cont medical management per primary Reorient as able Limit sedating medications where possible PT/OT as tolerated Will follow clinically Consultation Date/Type/Reason Admit Date/Time Jan 10, 2019 at 16:40 Type of Consult Neurology Reason for Consultation ams Requesting Provider: JATINDER ROSE Date/Time of Note DATE: 01/13/19 TIME: 11:05 Hx of Present Illness The pt is currently unable to contribute a hx. He is noted to have increasing altered mental status. It is elsewhere noted: INDICATION FOR ADMISSION: Elective right ankle arthrodesis with autograft for severe right ankle arthritis. HISTORY OF PRESENTING COMPLAINT: A 68-year-old male with a past medical history of hypertension, coronary artery disease status post CABG in the past, congestive heart failure as well as diabetes, who was brought in for an elective right ankle arthrodesis by orthopedic surgery due to severe right ankle o steoarthritis. We are being consulted for management of his medical problems. At this time, the patient tolerated surgery very well. Vitals are stable, but he is complaining of some left-sided chest pain. The patient also has a hx of CAD s/p CABG. He also has a history of anxiety. He has no fever, nausea, cough. No shortness of breath. Denies abdominal pain, hematuria, melenotic stools or dysuria. He was in his normal state of health prior to admission. unable to obtain d/t ams Exam/Review of Systems Exam Vitals Vital Signs Date Temp Pulse Resp B/P (MAP) Pulse Ox O2 O2 Flow FiO2 Time Delivery Rate 01/13/19 98.6 88 18 146/63 96 Room Air 09:27 (90) 01/13/19 2.0 08:00 Intake and Output 01/12/19 01/12/19 01/13/19 1515:00 23:00 07:00 IntakeIntake Total 500 ml 600 ml OutputOutput Total 25 ml 1100 ml BalanceBalance 475 ml -500 ml Exam PE: Gen Appearance: Anxious; sitter at bedside HEENT: Normocephalic Cardiovascular: Regular rate Abdomen: Soft Extremities: Dry; R leg brace NE: The patient was awake and alert; though disoriented. Grabbing at the air. The pt was difficult to direct/redirect. Was able to follow simple appendicular commands intermittently. Cranial nerve examination was limited by mental status. Pupils were equal and reactive to light. There was no afferent pupillary defect. Funduscopic examination was limited. Face was grossly symmetric, w/ present corneal and cough reflexes. Tone was normal. Muscle bulk was normal. I did not see fasciculations. The patient had spontaneous movement of his extremities. Coordination and gait testing was limited by mental status. Arm and leg reflexes were within normal limits and symmetric. Alvarez's sign was absent. Plantar responses were flexor. Results Result Diagram: 01/13/19 0928 01/13/19 0928 Results 24hrs Laboratory Tests Test 01/12/19 12:50 01/12/19 17:26 01/12/19 21:28 01/12/19 21:30 Bedside Glucose 115 144 140 Urine Color YELLOW Urine Clarity CLEAR Urine pH 6.0 Urine Specific 1.019 [place] Urine Ketones NEGATIVE Urine Nitrite NEGATIVE Urine Bilirubin NEGATIVE Urine Urobilinogen NEGATIVE Urine Leukocyte NEGATIVE Esterase Urine Microscopic 10 H RBC Urine Microscopic 2 WBC Urine Mucus FEW A Urine Hemoglobin NEGATIVE Urine Glucose NEGATIVE Urine Total Protein 1+ H Test 01/13/19 08:58 01/13/19 09:28 Bedside Glucose 190 White Blood Count 11.8 H Red Blood Count 3.45 L Hemoglobin 10.1 L Hematocrit 30.9 L Mean Corpuscular 89.6 Volume Mean Corpuscular 29.3 Hemoglobin Mean Corpuscular 32.7 Hemoglobin Concent Red Cell 12.9 Distribution Width Platelet Count 206 # Mean Platelet Volume 9.9 Immature 0.600 H Granulocytes % Neutrophils % 82.2 H Lymphocytes % 7.5 L Monocytes % 9.3 Eosinophils % 0.1 Basophils % 0.3 Nucleated Red Blood 0.0 Cells % Immature 0.070 H Granulocytes # Neutrophils # 9.7 H Lymphocytes # 0.9 Monocytes # 1.1 H Eosinophils # 0.0 Basophils # 0.0 Nucleated Red Blood 0.0 Cells # Sodium Level 136 Potassium Level 3.8 Chloride Level 101 Carbon Dioxide Level 25 Anion Gap 10 # Blood Urea Nitrogen 14 # Creatinine 0.61 Est Glomerular > 60 Filtrat Rate mL/min Glucose Level 185 Calcium Level 8.6 Phosphorus Level 2.7 Magnesium Level 1.9 Medications Medication Current Medications Ondansetron HCl (Zofran Inj) 4 mg Q4H PRN IV NAUSEA AND/OR VOMITING Last administered on 01/10/19 10:23; Admin Dose 4 MG; Start 01/09/19 at 08:00 Diphenhydramine HCl (Benadryl) 25 mg Q4H PRN PO ITCHING; Start 01/09/19 at 08:00 Ascorbic Acid (Vitamin C) 1,000 mg DAILY PO Last administered on 01/13/19 09:03; Admin Dose 1,000 MG; Start 01/09/19 at 14:00 Cholecalciferol (Vitamin D) 5,000 unit DAILY PO Last administered on 01/13/19 09:02; Admin Dose 5,000 UNIT; Start 01/09/19 at 14:00 Diagnostic Test (Pha) (Accu-Chek) 1 ea 02 XX Last administered on 01/10/19 01:39; Admin Dose 1 EA; Start 01/10/19 at 02:00 Insulin Aspart (Novolog Insulin Pen) NOVOLOG *MILD* ALGORITHM WITH MEALS BEDTIME SC Last administered on 01/13/19 09:07; Admin Dose 2 UNIT; Start 01/09/19 at 17:55 Amlodipine Besylate (Norvasc) 2.5 mg DAILY PO Last administered on 01/13/19 09:05; Admin Dose 2.5 MG; Start 01/10/19 at 09:00 Atorvastatin Calcium (Lipitor) 40 mg QHS PO Last administered on 01/12/19 21:30; Admin Dose 40 MG; Start 01/09/19 at 21:00 Escitalopram Oxalate (Lexapro) 5 mg DAILY PO Last administered on 01/13/19 09:03; Admin Dose 5 MG; Start 01/10/19 at 09:00 Folic Acid (Folic Acid) 1 mg DAILY PO Last administered on 01/13/19 09:05; Admin Dose 1 MG; Start 01/10/19 at 09:00 Furosemide (Lasix) 20 mg DAILY PO Last administered on 01/13/19 09:04; Admin Dose 20 MG; Start 01/10/19 at 09:00 Losartan Potassium (Cozaar) 50 mg BID PO Last administered on 01/13/19 09:05; Admin Dose 50 MG; Start 01/09/19 at 21:00 Metformin HCl (Glucophage) 500 mg WITH BREAKFAST DINNE PO Last administered on 01/13/19 09:02; Admin Dose 500 MG; Start 01/09/19 at 17:55 Ranitidine HCl (Zantac) 150 mg Q12 PO Last administered on 01/13/19 09:03; Admin Dose 150 MG; Start 01/09/19 at 21:00 Zolpidem Tartrate (Ambien) 5 mg HS MAY REPEAT X 1 PRN PO INSOMNIA; Start 01/09/19 at 15:30 Diagnostic Test (Pha) (Accu-Chek) 1 ea AC MEALS AND BEDTIME XX Last administered on 01/13/19 09:00; Admin Dose 1 EA; Start 01/09/19 at 17:25 Miscellaneous Information 1 ea NOTE XX ; Start 01/09/19 at 15:00 Glucose (Glutose) 15 gm Q15M PRN PO DECREASED GLUCOSE; Start 01/09/19 at 15:00 Glucose (Glutose) 22.5 gm Q15M PRN PO DECREASED GLUCOSE; Start 01/09/19 at 15:00 Dextrose (D50w Syringe) 25 ml Q15M PRN IV DECREASED GLUCOSE; Start 01/09/19 at 15:00 Dextrose (D50w Syringe) 50 ml Q15M PRN IV DECREASED GLUCOSE; Start 01/09/19 at 15:00 Glucagon (Glucagen) 1 mg Q15M PRN IM DECREASED GLUCOSE; Start 01/09/19 at 15:00 Glucose (Glutose) 15 gm Q15M PRN BUCCAL DECREASED GLUCOSE; Start 01/09/19 at 15:00 Nitroglycerin (Nitroglycerin (Sl Tab) 0.4 Mg) 1 tab Q5M PRN SL ANGINA; Start 01/09/19 at 20:00 Heparin Sodium (Porcine) (Heparin (5000 Units/1ml)) 5,000 unit BID SC Last administered on 01/13/19 09:06; Admin Dose 5,000 UNIT; Start 01/10/19 at 21:00 Finasteride (Proscar) 5 mg DAILY PO Last administered on 01/13/19 09:03; Admin Dose 5 MG; Start 01/10/19 at 12:00 Alfuzosin HCl (Uroxatral) 10 mg HS PO Last administered on 01/12/19 21:29; Admin Dose 10 MG; Start 01/10/19 at 21:00 Bethanechol Chloride (Urecholine) 25 mg TID PO Last administered on 01/13/19 09:03; Admin Dose 25 MG; Start 01/11/19 at 21:00 Lorazepam (Ativan) 1 mg Q8H PRN PO ANXIETY Last administered on 01/13/19 10:21; Admin Dose 1 MG; Start 01/12/19 at 18:30 Docusate Sodium (Colace) 200 mg BID PO Last administered on 01/13/19 09:04; Admin Dose 200 MG; Start 01/12/19 at 21:00 Senna (Senokot) 2 tab BID PO Last administered on 01/13/19 09:03; Admin Dose 2 TAB; Start 01/12/19 at 21:00 Potassium Chloride/Dextrose/ Sod Cl 1,000 ml @ 75 mls/hr [id number] IV Last administered on 01/13/19 09:21; Admin Dose 75 MLS/HR; Start 01/12/19 at 19:00 Diphenhydramine HCl (Benadryl) 50 mg HS PRN PO INSOMNIA Last administered on 01/12/19 21:30; Admin Dose 50 MG; Start 01/12/19 at 21:00 Aspirin (Halfprin) 81 mg BID PO Last administered on 01/13/19 09:03; Admin Dose 81 MG; Start 01/12/19 at 21:00 Acetaminophen/ Hydrocodone Bitart ([place] (10/325)) 1 tab Q4H PRN PO MODERATE PAIN LEVEL 4-6 Last administered on 01/13/19 09:02; Admin Dose 1 TAB; Start 01/12/19 at 21:00 Past Medical History reviewed Medical History: congestive heart failure, coronary artery disease, diabetes, hypertension, renal disease, other Home Meds Reported Medications Hydrocodone/Acetaminophen (Hydrocodone-Acetamin 10-325 mg) 1 Each Tablet, 1 TAB ORAL Q6 PRN for PAIN LEVEL 7-10 01/09/19 Tramadol Hcl* (Ultram*) 50 Mg Tablet, 50 MG PO Q6H PRN for PAIN, TAB 01/01/19 Temazepam* (Temazepam*) 30 Mg Capsule, 30 MG PO HS PRN for INSOMNIA, CAP 01/01/19 Ranitidine Hcl* (Ranitidine Hcl*) 150 Mg Tablet, 150 MG PO Q12, #60 TAB 01/01/19 Metformin Hcl* (Metformin Hcl*) 500 Mg Tablet, 500 MG PO WITH BREAKFAST DINNE, #60 TAB 01/01/19 Losartan Potassium* (Losartan Potassium*) 50 Mg Tablet, 50 MG PO BID, TAB 01/01/19 Lisinopril* (Lisinopril*) 40 Mg Tablet, 40 MG PO DAILY, #30 TAB 01/01/19 Gabapentin* (Gabapentin*) 300 Mg Capsule, 300 MG PO TID, #90 CAP 01/01/19 Furosemide* (Furosemide*) 20 Mg Tablet, 20 MG PO DAILY, #60 TAB 01/01/19 Folic Acid* (Folic Acid*) 1 Mg Tablet, 1 MG PO DAILY, TAB 01/01/19 Escitalopram Oxalate* (Lexapro*) 5 Mg Tablet, 5 MG PO DAILY, #30 TAB 01/01/19 Clopidogrel Bisulfate (Clopidogrel) 75 Mg Tablet, 75 MG PO DAILY, #30 TAB 01/01/19 Atorvastatin* (Atorvastatin*) 40 Mg Tablet, 40 MG PO QHS, #30 TAB 01/01/19 Aspirin (Low Dose Aspirin) 81 Mg Tablet.dr, 81 MG PO DAILY, #30 TAB 01/01/19 Amlodipine Besylate* (Amlodipine Besylate*) 2.5 Mg Tablet, 2.5 MG PO DAILY, #30 TAB 01/01/19 Medications Current Medications Ondansetron HCl (Zofran Inj) 4 mg Q4H PRN IV NAUSEA AND/OR VOMITING Last administered on 01/10/19at 10:23; Admin Dose 4 MG; Start 01/09/19 at 08:00 Diphenhydramine HCl (Benadryl) 25 mg Q4H PRN PO ITCHING; Start 01/09/19 at 08:00 Ascorbic Acid (Vitamin C) 1,000 mg DAILY PO Last administered on 01/13/19at 09:03; Admin Dose 1,000 MG; Start 01/09/19 at 14:00 Cholecalciferol (Vitamin D) 5,000 unit DAILY PO Last administered on 01/13/19 09:02; Admin Dose 5,000 UNIT; Start 01/09/19 at 14:00 Diagnostic Test (Pha) (Accu-Chek) 1 ea 02 XX Last administered on 01/10/19 01:39; Admin Dose 1 EA; Start 01/10/19 at 02:00 Insulin Aspart (Novolog Insulin Pen) NOVOLOG *MILD* ALGORITHM WITH MEALS BEDTIME SC Last administered on 01/13/19 09:07; Admin Dose 2 UNIT; Start 01/09/19 at 17:55 Amlodipine Besylate (Norvasc) 2.5 mg DAILY PO Last administered on 01/13/19 09:05; Admin Dose 2.5 MG; Start 01/10/19 at 09:00 Atorvastatin Calcium (Lipitor) 40 mg QHS PO Last administered on 01/12/19 21:30; Admin Dose 40 MG; Start 01/09/19 at 21:00 Escitalopram Oxalate (Lexapro) 5 mg DAILY PO Last administered on 01/13/19 09:03; Admin Dose 5 MG; Start 01/10/19 at 09:00 Folic Acid (Folic Acid) 1 mg DAILY PO Last administered on 01/13/19 09:05; Admin Dose 1 MG; Start 01/10/19 at 09:00 Furosemide (Lasix) 20 mg DAILY PO Last administered on 01/13/19 09:04; Admin Dose 20 MG; Start 01/10/19 at 09:00 Losartan Potassium (Cozaar) 50 mg BID PO Last administered on 01/13/19 09:05; Admin Dose 50 MG; Start 01/09/19 at 21:00 Metformin HCl (Glucophage) 500 mg WITH BREAKFAST DINNE PO Last administered on 01/13/19 09:02; Admin Dose 500 MG; Start 01/09/19 at 17:55 Ranitidine HCl (Zantac) 150 mg Q12 PO Last administered on 01/13/19 09:03; Admin Dose 150 MG; Start 01/09/19 at 21:00 Zolpidem Tartrate (Ambien) 5 mg HS MAY REPEAT X 1 PRN PO INSOMNIA; Start 01/09/19 at 15:30 Diagnostic Test (Pha) (Accu-Chek) 1 ea AC MEALS AND BEDTIME XX Last admini stered on 4/15/19at 09:00; Admin Dose 1 EA; Start 01/09/19 at 17:25 Miscellaneous Information 1 ea NOTE XX ; Start 01/09/19 at 15:00 Glucose (Glutose) 15 gm Q15M PRN PO DECREASED GLUCOSE; Start 01/09/19 at 15:00 Glucose (Glutose) 22.5 gm Q15M PRN PO DECREASED GLUCOSE; Start 01/09/19 at 15:00 Dextrose (D50w Syringe) 25 ml Q15M PRN IV DECREASED GLUCOSE; Start 01/09/19 at 15:00 Dextrose (D50w Syringe) 50 ml Q15M PRN IV DECREASED GLUCOSE; Start 01/09/19 at 15:00 Glucagon (Glucagen) 1 mg Q15M PRN IM DECREASED GLUCOSE; Start 01/09/19 at 15:00 Glucose (Glutose) 15 gm Q15M PRN BUCCAL DECREASED GLUCOSE; Start 01/09/19 at 15:00 Nitroglycerin (Nitroglycerin (Sl Tab) 0.4 Mg) 1 tab Q5M PRN SL ANGINA; Start 01/09/19 at 20:00 Heparin Sodium (Porcine) (Heparin (5000 Units/1ml)) 5,000 unit BID SC Last administered on 01/13/19at 09:06; Admin Dose 5,000 UNIT; Start 01/10/19 at 21:00 Finasteride (Proscar) 5 mg DAILY PO Last administered on 01/13/19at 09:03; Admin Dose 5 MG; Start 01/10/19 at 12:00 Alfuzosin HCl (Uroxatral) 10 mg HS PO Last administered on 01/12/19at 21:29; Admin Dose 10 MG; Start 01/10/19 at 21:00 Bethanechol Chloride (Urecholine) 25 mg TID PO Last administered on 01/13/19at 0 9:03; Admin Dose 25 MG; Start 01/11/19 at 21:00 Lorazepam (Ativan) 1 mg Q8H PRN PO ANXIETY Last administered on 01/13/19at 10:21; Admin Dose 1 MG; Start 01/12/19 at 18:30 Docusate Sodium (Colace) 200 mg BID PO Last administered on 01/13/19at 09:04; Admin Dose 200 MG; Start 01/12/19 at 21:00 Senna (Senokot) 2 tab BID PO Last administered on 01/13/19 09:03; Admin Dose 2 TAB; Start 01/12/19 at 21:00 Potassium Chloride/Dextrose/ Sod Cl 1,000 ml @ 75 mls/hr [id number] IV Last administered on 01/13/19 09:21; Admin Dose 75 MLS/HR; Start 01/12/19 at 19:00 Diphenhydramine HCl (Benadryl) 50 mg HS PRN PO INSOMNIA Last administered on 01/12/19at 21:30; Admin Dose 50 MG; Start 01/12/19 at 21:00 Aspirin (Halfprin) 81 mg BID PO Last administered on 01/13/19 09:03; Admin Dose 81 MG; Start 01/12/19 at 21:00 Acetaminophen/ Hydrocodone Bitart ([place] (10/325)) 1 tab Q4H PRN PO MODERATE PAIN LEVEL 4-6 Last administered on 01/13/19 09:02; Admin Dose 1 TAB; Start 01/12/19 at 21:00 Allergies: Coded Allergies: No Known Allergy (Unverified , 01/09/19) Past Surgical History reviewed Past Surgical Hx: other (His recent ankle surgery) Social History reviewed Alcohol Use: rarely Smoking Status: Former smoker Drug Use: none VIRAJ ARAIZA NP Jan 13, 2019 11:05 CHACHA DONNELLY Jan 13, 2019 13:16
[2019-01-13] MEDS ORDERED: QUETIAPINE 25 MG TAB PO ONE (13:00)
[2019-01-13] MEDS: LORAZEPAM 2 MG INJ IV PRN ×2 (13:25→22:40)
--- NOTE | 2019-01-13 14:38 | PN ---
Date/Time of Note Date/Time of Note DATE: 01/13/19 TIME: 14:34 Assessment/Plan VTE Prophylaxis Risk score (from Ns)>0 risk: 10 SCD applied (from Ns): Yes Pharmacological prophylaxis: heparin Lines/Catheters IV Catheter Type (from Nrs): Peripheral IV Urinary Cath still in place: Yes Reason Cath still needed: urinary retention Assessment/Plan Hospital Course EXAM Alert, delirious No acute distress Breathing comfortably RRR Soft nt nd RLE in cast A/P: 68 yo male with h/o CAD s/p CABG here for R ankle surgery now with delirirum Delirium: - Head CT is pending - I suspect this is simple hospital acquired delirium -> dc bethanachol and limit culprit meds. Family insisting on sedatives so will provide seroquel and ativan PRN DMII: - Basal/bolus insulin CAD: - aspirin and statin Ankle management per Dr Titus PT/OT Result Diagram: 01/13/1992701/13/19927 Results 24hrs Laboratory Tests Test 01/12/19 17:26 01/12/19 21:28 01/12/19 21:30 01/13/19 08:58 Bedside Glucose 144 140 190 Urine Color YELLOW Urine Clarity CLEAR Urine pH 6.0 Urine Specific 1.019 [place] Urine Ketones NEGATIVE Urine Nitrite NEGATIVE Urine Bilirubin NEGATIVE Urine Urobilinogen NEGATIVE Urine Leukocyte NEGATIVE Esterase Urine Microscopic 10 H RBC Urine Microscopic 2 WBC Urine Mucus FEW A Urine Hemoglobin NEGATIVE Urine Glucose NEGATIVE Urine Total Protein 1+ H Test 01/13/19 09:28 01/13/19 12:41 White Blood Count 11.8 H Red Blood Count 3.45 L Hemoglobin 10.1 L Hematocrit 30.9 L Mean Corpuscular 89.6 Volume Mean Corpuscular 29.3 Hemoglobin Mean Corpuscular 32.7 Hemoglobin Concent Red Cell 12.9 Distribution Width Platelet Count 206 # Mean Platelet Volume 9.9 Immature 0.600 H Granulocytes % Neutrophils % 82.2 H Lymphocytes % 7.5 L Monocytes % 9.3 Eosinophils % 0.1 Basophils % 0.3 Nucleated Red Blood 0.0 Cells % Immature 0.070 H Granulocytes # Neutrophils # 9.7 H Lymphocytes # 0.9 Monocytes # 1.1 H Eosinophils # 0.0 Basophils # 0.0 Nucleated Red Blood 0.0 Cells # Sodium Level 136 Potassium Level 3.8 Chloride Level 101 Carbon Dioxide Level 25 Anion Gap 10 # Blood Urea Nitrogen 14 # Creatinine 0.61 Est Glomerular > 60 Filtrat Rate mL/min Glucose Level 185 Calcium Level 8.6 Phosphorus Level 2.7 Magnesium Level 1.9 Bedside Glucose 134 Subjective 24 Hr Interval Summary Free Text/Dictation Patient increasingly deliriuos Family very concerned about it. Want him transferred to [place] with HCP shelter case manager tells me is not possible Patient alert denies copmliants but clearly delirious Exam/Review of Systems Exam Vitals Vital Signs Date Temp Pulse Resp B/P (MAP) Pulse Ox O2 O2 Flow FiO2 Time Delivery Rate 01/13/19 98.6 88 18 146/63 96 Room Air 09:27 (90) 01/13/19 2.0 08:00 Intake and Output 01/12/19 01/12/19 01/13/19 1515:00 23:00 07:00 IntakeIntake Total 500 ml 600 ml OutputOutput Total 25 ml 1100 ml BalanceBalance 475 ml -500 ml Results Results 24hrs Laboratory Tests Test 01/12/19 17:26 01/12/19 21:28 01/12/19 21:30 01/13/19 08:58 Bedside Glucose 144 140 190 Urine Color YELLOW Urine Clarity CLEAR Urine pH 6.0 Urine Specific 1.019 [place] Urine Ketones NEGATIVE Urine Nitrite NEGATIVE Urine Bilirubin NEGATIVE Urine Urobilinogen NEGATIVE Urine Leukocyte NEGATIVE Esterase Urine Microscopic 10 H RBC Urine Microscopic 2 WBC Urine Mucus FEW A Urine Hemoglobin NEGATIVE Urine Glucose NEGATIVE Urine Total Protein 1+ H Test 01/13/19 09:28 01/13/19 12:41 White Blood Count 11.8 H Red Blood Count 3.45 L Hemoglobin 10.1 L Hematocrit 30.9 L Mean Corpuscular 89.6 Volume Mean Corpuscular 29.3 Hemoglobin Mean Corpuscular 32.7 Hemoglobin Concent Red Cell 12.9 Distribution Width Platelet Count 206 # Mean Platelet Volume 9.9 Immature 0.600 H Granulocytes % Neutrophils % 82.2 H Lymphocytes % 7.5 L Monocytes % 9.3 Eosinophils % 0.1 Basophils % 0.3 Nucleated Red Blood 0.0 Cells % Immature 0.070 H Granulocytes # Neutrophils # 9.7 H Lymphocytes # 0.9 Monocytes # 1.1 H Eosinophils # 0.0 Basophils # 0.0 Nucleated Red Blood 0.0 Cells # Sodium Level 136 Potassium Level 3.8 Chloride Level 101 Carbon Dioxide Level 25 Anion Gap 10 # Blood Urea Nitrogen 14 # Creatinine 0.61 Est Glomerular > 60 Filtrat Rate mL/min Glucose Level 185 Calcium Level 8.6 Phosphorus Level 2.7 Magnesium Level 1.9 Bedside Glucose 134 Medications Medication Current Medications Ondansetron HCl (Zofran Inj) 4 mg Q4H PRN IV NAUSEA AND/OR VOMITING Last administered on 01/10/19 10:23; Admin Dose 4 MG; Start 01/09/19 at 08:00 Diphenhydramine HCl (Benadryl) 25 mg Q4H PRN PO ITCHING; Start 01/09/19 at 08:00 Ascorbic Acid (Vitamin C) 1,000 mg DAILY PO Last administered on 01/13/19 09:03; Admin Dose 1,000 MG; Start 01/09/19 at 14:00; Status Hold Cholecalciferol (Vitamin D) 5,000 unit DAILY PO Last administered on 01/13/19 09:02; Admin Dose 5,000 UNIT; Start 01/09/19 at 14:00 Insulin Aspart (Novolog Insulin Pen) NOVOLOG *MILD* ALGORITHM WITH MEALS BEDTIME SC Last administered on 01/13/19 09:07; Admin Dose 2 UNIT; Start 01/09/19 at 17:55 Amlodipine Besylate (Norvasc) 2.5 mg DAILY PO Last administered on 01/13/19 09:05; Admin Dose 2.5 MG; Start 01/10/19 at 09:00; Status Hold Atorvastatin Calcium (Lipitor) 40 mg QHS PO Last administered on 01/12/19 21:30; Admin Dose 40 MG; Start 01/09/19 at 21:00; Status Hold Escitalopram Oxalate (Lexapro) 5 mg DAILY PO Last administered on 01/13/19 09:03; Admin Dose 5 MG; Start 01/10/19 at 09:00; Status Hold Folic Acid (Folic Acid) 1 mg DAILY PO Last administered on 01/13/19 09:05; Admin Dose 1 MG; Start 01/10/19 at 09:00; Status Hold Furosemide (Lasix) 20 mg DAILY PO Last administered on 01/13/19 09:04; Admin Dose 20 MG; Start 01/10/19 at 09:00 Losartan Potassium (Cozaar) 50 mg BID PO Last administered on 01/13/19 09:05; Admin Dose 50 MG; Start 01/09/19 at 21:00; Status Hold Metformin HCl (Glucophage) 500 mg WITH BREAKFAST DINNE PO Last administered on 01/13/19 09:02; Admin Dose 500 MG; Start 01/09/19 at 17:55; Status Hold Ranitidine HCl (Zantac) 150 mg Q12 PO Last administered on 01/13/19 09:03; Admin Dose 150 MG; Start 01/09/19 at 21:00; Status Hold Zolpidem Tartrate (Ambien) 5 mg HS MAY REPEAT X 1 PRN PO INSOMNIA; Start 01/09/19 at 15:30 Diagnostic Test (Pha) (Accu-Chek) 1 ea AC MEALS AND BEDTIME XX Last administered on 01/13/19 11:10; Admin Dose 1 EA; Start 01/09/19 at 17:25 Miscellaneous Information 1 ea NOTE XX ; Start 01/09/19 at 15:00 Glucose (Glutose) 15 gm Q15M PRN PO DECREASED GLUCOSE; Start 01/09/19 at 15:00 Glucose (Glutose) 22.5 gm Q15M PRN PO DECREASED GLUCOSE; Start 01/09/19 at 15:00 Dextrose (D50w Syringe) 25 ml Q15M PRN IV DECREASED GLUCOSE; Start 01/09/19 at 15:00 Dextrose (D50w Syringe) 50 ml Q15M PRN IV DECREASED GLUCOSE; Start 01/09/19 at 15:00 Glucagon (Glucagen) 1 mg Q15M PRN IM DECREASED GLUCOSE; Start 01/09/19 at 15:00 Glucose (Glutose) 15 gm Q15M PRN BUCCAL DECREASED GLUCOSE; Start 01/09/19 at 15:00 Nitroglycerin (Nitroglycerin (Sl Tab) 0.4 Mg) 1 tab Q5M PRN SL ANGINA; Start 01/09/19 at 20:00 Heparin Sodium (Porcine) (Heparin (5000 Units/1ml)) 5,000 unit BID SC Last administered on 01/13/19 09:06; Admin Dose 5,000 UNIT; Start 01/10/19 at 21:00 Finasteride (Proscar) 5 mg DAILY PO Last administered on 01/13/19 09:03; Admin Dose 5 MG; Start 01/10/19 at 12:00; Status Hold Alfuzosin HCl (Uroxatral) 10 mg HS PO Last administered on 01/12/19 21:29; Admin Dose 10 MG; Start 01/10/19 at 21:00; Status Hold Lorazepam (Ativan) 1 mg Q8H PRN PO ANXIETY Last administered on 01/13/19 10:21; Admin Dose 1 MG; Start 01/12/19 at 18:30 Docusate Sodium (Colace) 200 mg BID PO Last administered on 01/13/19 09:04; Admin Dose 200 MG; Start 01/12/19 at 21:00 Senna (Senokot) 2 tab BID PO Last administered on 01/13/19 09:03; Admin Dose 2 TAB; Start 01/12/19 at 21:00; Status Hold Diphenhydramine HCl (Benadryl) 50 mg HS PRN PO INSOMNIA Last administered on 01/12/19 21:30; Admin Dose 50 MG; Start 01/12/19 at 21:00 Aspirin (Halfprin) 81 mg BID PO Last administered on 01/13/19 09:03; Admin Dose 81 MG; Start 01/12/19 at 21:00 Acetaminophen/ Hydrocodone Bitart ([place] (10/325)) 1 tab Q4H PRN PO MODERATE PAIN LEVEL 4-6 Last administered on 01/13/19 09:02; Admin Dose 1 TAB; Start 01/12/19 at 21:00 Lorazepam (Ativan) 2 mg Q12H PRN IV agitation Last administered on 01/13/19 13:25; Admin Dose 2 MG; Start 01/13/19 at 13:00 MYRA LYONS MD Jan 13, 2019 14:38
--- NOTE | 2019-01-13 17:45 | CONS ---
Consult Date/Type/Reason Admit Date/Time Jan 10, 2019 at 16:40 Initial Consult Date 01/10/19 Type of Consultation: Urology Reason for Consultation Urinary retention Requesting Provider: JATINDER ROSE Date/Time of Note DATE: 01/13/19 TIME: 17:42 Subjective Patient is very confused. He is sleeping at the present. He had a [place]arez cath eter that was removed at 11:00. According to his daughter and the staff he has voided after that. Objective Vitals Vital Signs Date Temp Pulse Resp B/P (MAP) Pulse Ox O2 O2 Flow FiO2 Time Delivery Rate 01/13/19 98.6 88 18 146/63 96 Room Air 09:27 (90) 01/13/19 2.0 08:00 Intake and Output 01/12/19 01/12/19 01/13/19 1515:00 23:00 07:00 IntakeIntake Total 500 ml 600 ml OutputOutput Total 25 ml 1100 ml BalanceBalance 475 ml -500 ml Exam Patient is sleeping and therefore I did not want to wake him up because he has not slept in 2 days Results/Medications Result Diagram: 01/13/1928 01/13/1928 Results 24 hrs Laboratory Tests Test 01/12/19 21:28 01/12/19 21:30 01/13/19 08:58 01/13/19 09:28 Bedside Glucose 140 190 Urine Color YELLOW Urine Clarity CLEAR Urine pH 6.0 Urine Specific 1.019 [place] Urine Ketones NEGATIVE Urine Nitrite NEGATIVE Urine Bilirubin NEGATIVE Urine Urobilinogen NEGATIVE Urine Leukocyte NEGATIVE Esterase Urine Microscopic 10 H RBC Urine Microscopic 2 WBC Urine Mucus FEW A Urine Hemoglobin NEGATIVE Urine Glucose NEGATIVE Urine Total Protein 1+ H White Blood Count 11.8 H Red Blood Count 3.45 L Hemoglobin 10.1 L Hematocrit 30.9 L Mean Corpuscular 89.6 Volume Mean Corpuscular 29.3 Hemoglobin Mean Corpuscular 32.7 Hemoglobin Concent Red Cell 12.9 Distribution Width Platelet Count 206 # Mean Platelet Volume 9.9 Immature 0.600 H Granulocytes % Neutrophils % 82.2 H Lymphocytes % 7.5 L Monocytes % 9.3 Eosinophils % 0.1 Basophils % 0.3 Nucleated Red Blood 0.0 Cells % Immature 0.070 H Granulocytes # Neutrophils # 9.7 H Lymphocytes # 0.9 Monocytes # 1.1 H Eosinophils # 0.0 Basophils # 0.0 Nucleated Red Blood 0.0 Cells # Sodium Level 136 Potassium Level 3.8 Chloride Level 101 Carbon Dioxide Level 25 Anion Gap 10 # Blood Urea Nitrogen 14 # Creatinine 0.61 Est Glomerular > 60 Filtrat Rate mL/min Glucose Level 185 Calcium Level 8.6 Phosphorus Level 2.7 Magnesium Level 1.9 Test 01/13/19 12:41 Bedside Glucose 134 Home Meds Reported Medications Hydrocodone/Acetaminophen (Hydrocodone-Acetamin 10-325 mg) 1 Each Tablet, 1 TAB ORAL Q6 PRN for PAIN LEVEL 7-10 01/09/19 Tramadol Hcl* (Ultram*) 50 Mg Tablet, 50 MG PO Q6H PRN for PAIN, TAB 01/01/19 Temazepam* (Temazepam*) 30 Mg Capsule, 30 MG PO HS PRN for INSOMNIA, CAP 01/01/19 Ranitidine Hcl* (Ranitidine Hcl*) 150 Mg Tablet, 150 MG PO Q12, #60 TAB 01/01/19 Metformin Hcl* (Metformin Hcl*) 500 Mg Tablet, 500 MG PO WITH BREAKFAST DINNE, #60 TAB 01/01/19 Losartan Potassium* (Losartan Potassium*) 50 Mg Tablet, 50 MG PO BID, TAB 01/01/19 Lisinopril* (Lisinopril*) 40 Mg Tablet, 40 MG PO DAILY, #30 TAB 01/01/19 Gabapentin* (Gabapentin*) 300 Mg Capsule, 300 MG PO TID, #90 CAP 01/01/19 Furosemide* (Furosemide*) 20 Mg Tablet, 20 MG PO DAILY, #60 TAB 01/01/19 Folic Acid* (Folic Acid*) 1 Mg Tablet, 1 MG PO DAILY, TAB 01/01/19 Escitalopram Oxalate* (Lexapro*) 5 Mg Tablet, 5 MG PO DAILY, #30 TAB 01/01/19 Clopidogrel Bisulfate (Clopidogrel) 75 Mg Tablet, 75 MG PO DAILY, #30 TAB 01/01/19 Atorvastatin* (Atorvastatin*) 40 Mg Tablet, 40 MG PO QHS, #30 TAB 01/01/19 Aspirin (Low Dose Aspirin) 81 Mg Tablet.dr, 81 MG PO DAILY, #30 TAB 01/01/19 Amlodipine Besylate* (Amlodipine Besylate*) 2.5 Mg Tablet, 2.5 MG PO DAILY, #30 TAB 01/01/19 Medications Current Medications Ondansetron HCl (Zofran Inj) 4 mg Q4H PRN IV NAUSEA AND/OR VOMITING Last administered on 01/10/19 10:23; Admin Dose 4 MG; Start 01/09/19 at 08:00 Diphenhydramine HCl (Benadryl) 25 mg Q4H PRN PO ITCHING; Start 01/09/19 at 08:00 Ascorbic Acid (Vitamin C) 1,000 mg DAILY PO Last administered on 01/13/19 09:03; Admin Dose 1,000 MG; Start 01/09/19 at 14:00; Status Hold Cholecalciferol (Vitamin D) 5,000 unit DAILY PO Last administered on 01/13/19 09:02; Admin Dose 5,000 UNIT; Start 01/09/19 at 14:00 Insulin Aspart (Novolog Insulin Pen) NOVOLOG *MILD* ALGORITHM WITH MEALS BEDTIME SC Last administered on 01/13/19 09:07; Admin Dose 2 UNIT; Start 01/09/19 at 17:55 Amlodipine Besylate (Norvasc) 2.5 mg DAILY PO Last administered on 01/13/19 09:05; Admin Dose 2.5 MG; Start 01/10/19 at 09:00; Status Hold Atorvastatin Calcium (Lipitor) 40 mg QHS PO Last administered on 01/12/19 21:30; Admin Dose 40 MG; Start 01/09/19 at 21:00; Status Hold Escitalopram Oxalate (Lexapro) 5 mg DAILY PO Last administered on 01/13/19 09:03; Admin Dose 5 MG; Start 01/10/19 at 09:00; Status Hold Folic Acid (Folic Acid) 1 mg DAILY PO Last administered on 01/13/19 09:05; Admin Dose 1 MG; Start 01/10/19 at 09:00; Status Hold Furosemide (Lasix) 20 mg DAILY PO Last administered on 01/13/19 09:04; Admin Dose 20 MG; Start 01/10/19 at 09:00 Losartan Potassium (Cozaar) 50 mg BID PO Last administered on 01/13/19 09:05; Admin Dose 50 MG; Start 01/09/19 at 21:00; Status Hold Metformin HCl (Glucophage) 500 mg WITH BREAKFAST DINNE PO Last administered on 01/13/19 09:02; Admin Dose 500 MG; Start 01/09/19 at 17:55; Status Hold Ranitidine HCl (Zantac) 150 mg Q12 PO Last administered on 01/13/19at 09:03; Admin Dose 150 MG; Start 01/09/19 at 21:00; Status Hold Zolpidem Tartrate (Ambien) 5 mg HS MAY REPEAT X 1 PRN PO INSOMNIA; Start 01/09/19 at 15:30 Diagnostic Test (Pha) (Accu-Chek) 1 ea AC MEALS AND BEDTIME XX Last administered on 01/13/19at 11:10; Admin Dose 1 EA; Start 01/09/19 at 17:25 Miscellaneous Information 1 ea NOTE XX ; Start 01/09/19 at 15:00 Glucose (Glutose) 15 gm Q15M PRN PO DECREASED GLUCOSE; Start 01/09/19 at 15:00 Glucose (Glutose) 22.5 gm Q15M PRN PO DECREASED GLUCOSE; Start 01/09/19 at 15:00 Dextrose (D50w Syringe) 25 ml Q15M PRN IV DECREASED GLUCOSE; Start 01/09/19 at 15:00 Dextrose (D50w Syringe) 50 ml Q15M PRN IV DECREASED GLUCOSE; Start 01/09/19 at 15:00 Glucagon (Glucagen) 1 mg Q15M PRN IM DECREASED GLUCOSE; Start 01/09/19 at 15:00 Glucose (Glutose) 15 gm Q15M PRN BUCCAL DECREASED GLUCOSE; Start 01/09/19 at 15 :00 Nitroglycerin (Nitroglycerin (Sl Tab) 0.4 Mg) 1 tab Q5M PRN SL ANGINA; Start 01/09/19 at 20:00 Heparin Sodium (Porcine) (Heparin (5000 Units/1ml)) 5,000 unit BID SC Last administered on 01/13/19at 09:06; Admin Dose 5,000 UNIT; Start 01/10/19 at 21:00 Finasteride (Proscar) 5 mg DAILY PO Last administered on 01/13/19at 09:03; Admin Dose 5 MG; Start 01/10/19 at 12:00; Status Hold Alfuzosin HCl (Uroxatral) 10 mg HS PO Last administered on 01/12/19at 21:29; Admin Dose 10 MG; Start 01/10/19 at 21:00; Status Hold Lorazepam (Ativan) 1 mg Q8H PRN PO ANXIETY Last administered on 01/13/19 10:21 ; Admin Dose 1 MG; Start 01/12/19 at 18:30 Docusate Sodium (Colace) 200 mg BID PO Last administered on 01/13/19 09:04; Admin Dose 200 MG; Start 01/12/19 at 21:00 Senna (Senokot) 2 tab BID PO Last administered on 01/13/19 09:03; Admin Dose 2 TAB; Start 01/12/19 at 21:00; Status Hold Diphenhydramine HCl (Benadryl) 50 mg HS PRN PO INSOMNIA Last administered on 01/12/19 21:30; Admin Dose 50 MG; Start 01/12/19 at 21:00 Aspirin (Halfprin) 81 mg BID PO Last administered on 01/13/19 09:03; Admin Dose 81 MG; Start 01/12/19 at 21:00 Acetaminophen/ Hydrocodone Bitart ([place] (10/325)) 1 tab Q4H PRN PO MODERATE PAIN LEVEL 4-6 Last administered on 01/13/19 09:02; Admin Dose 1 TAB; Start 01/12/19 at 21:00 Lorazepam (Ativan) 2 mg Q12H PRN IV agitation Last administered on 01/13/19 13:25; Admin Dose 2 MG; Start 01/13/19 at 13:00 Assessment/Plan Hospital Course (Demo Recall) 68-year-old male on 01/09/2019 underwent: 1. Right iliac crest bone autograft harvest. 2. Right iliac crest bone marrow aspirate concentrate harvest. 3. Right ankle arthrodesis with both allograft and autograft A urological consultation was requested today because the patient was not able to urinate and had urinary retention. Patient denied any prior history of urina ry retention and has not been on any medication for his prostate at home prior to his surgery On the examination his abdomen was soft and there was no tenderness. The bladder did not appear distended. The external genitalia are normal. Even though the patient was started on Urecholine 25 mg 3 times a day, he is still not able to urinate and empty his bladder on his own. The Urecholine has been stopped. His prostate is not large to cause him the problem. Therefore the problem is most likely neurogenic or side effect of medications. We will continue to monitor his voiding and check his postvoid residual and do straight cath when the postvoid residual is over 300 mL and when he does not void in 6-8 hours and the bladder scan shows over 500 mL. ALEX JOSHI MD Jan 13, 2019 17:45
[2019-01-13] MEDS ORDERED: ALBUTEROL 0.083% (NEB) 2.5 MG/3 ML AMP HHN PRN (18:30)
[2019-01-13 19:05] VITALS: BP 135/64; PULSE 72; RESP 16
[2019-01-13 20:06] VITALS: PULSE 76
[2019-01-13 20:29] VITALS: BP 131/63; PULSE 76; RESP 18
[2019-01-13] MEDS ORDERED: CHOLECALCIFEROL 2,000 UNIT CAP PO ONE (22:00)
[2019-01-13] MEDS ORDERED: LEVALBUTEROL (NEB) 1.25 MG/0.5 ML AMP HHN PRN (22:00)
[2019-01-14] VITALS (15 sets, daily range): BP systolic 101–153; BP diastolic 51–76; PULSE 57–67; RESP 18–22
[2019-01-14] MEDS ORDERED: LORAZEPAM 2 MG INJ IV ONE ×2 (01:00→04:30)
[2019-01-14] MEDS ORDERED: HALOPERIDOL 5 MG INJ IM ONE ×2 (01:00→04:30)
[2019-01-14] MEDS: ACCU-CHEK XX SCH ×4 (07:00→21:24)
[2019-01-14] MEDS: INSULIN ASPART [NOVOLOG] 3 ML PEN SC SCH ×4 (08:00→20:31)
[2019-01-14] MEDS: DOCUSATE SODIUM 100 MG CAP PO SCH ×2 (09:00→20:26)
[2019-01-14] MEDS: FUROSEMIDE 20 MG TAB PO SCH (09:00)
[2019-01-14] MEDS: ASPIRIN (EC) 81 MG TAB PO SCH ×2 (09:00→20:27)
--- NOTE | 2019-01-14 10:21 | PN ---
Date/Time of Note Date/Time of Note DATE: 01/14/19 TIME: 10:21 Assessment/Plan VTE Prophylaxis Risk score (from Ns)>0 risk: 5 SCD applied (from [facility]): Yes Pharmacological prophylaxis: other Pharm contraindication: bleeding Lines/Catheters IV Catheter Type (from [facility]): Peripheral IV Urinary Cath still in place: Yes Reason Cath still needed: urinary retention Assessment/Plan Hospital Course A 68-year-old male status post elective right ankle arthrodesis 01/09/19 for severe right osteoarthritis for whom we are consulted for management of his medical problems: 1. altered mentation / acute delirium (post op) -likely toxic metabolic from multiple meds -d/c all narcotics for now -start low dose Seroquel and use Haldol and necessary for break through agitation -continue 1:1 sitter for now -CT brain reviewed, CXR reviewed, will get ABG and ammonia levels -no UTI on UA -NPO for now per ST for aspiration risk, start low dose IVF -Neurology following, appreciate input -close monitoring -Will consider MRI if no improvement with the above 2. History of coronary artery disease, status CABG, was also on Plavix therapy. -Continue home aspirin only for now, per Ortho, can resume Plavix 5 days after surgery. Nitroglycerin also as needed. 3. Hypertension 4. Chronic depression and anxiety. 5. History of congestive heart failure. 6. Diabetes mellitus type 2. 7. Urinary retention: post op, -urology following -patient is s/p bethanechol -seems to be voiding on his own now, nurses monitoring PVR 8. Ecchymosis : -stable, continue to hold heparin for now -check coag panel -hgb stable , 9. Prev CVA (multiple) -likely predisposing factor to acute delirium -low suspicion for repeat CVA -see #1 DVT Prophylaxis : SCDs only for now Result Diagram: 01/14/19 0549 01/14/19 0549 Results 24hrs Laboratory Tests Test 01/13/19 12:41 01/13/19 18:01 01/13/19 22:30 01/14/19 05:49 Bedside Glucose 134 124 102 White Blood Count 9.7 Red Blood Count 3.30 L Hemoglobin 9.9 L Hematocrit 29.2 L Mean Corpuscular 88.5 Volume Mean Corpuscular 30.0 Hemoglobin Mean Corpuscular 33.9 Hemoglobin Concent Red Cell 13.1 Distribution Width Platelet Count 239 Mean Platelet Volume 10.1 Immature 0.300 Granulocytes % Neutrophils % 68.4 Lymphocytes % 15.2 Monocytes % 13.1 H Eosinophils % 2.7 Basophils % 0.3 Nucleated Red Blood 0.0 Cells % Immature 0.030 Granulocytes # Neutrophils # 6.7 Lymphocytes # 1.5 Monocytes # 1.3 H Eosinophils # 0.3 Basophils # 0.0 Nucleated Red Blood 0.0 Cells # Sodium Level 143 Potassium Level 3.3 L Chloride Level 110 Carbon Dioxide Level 24 Anion Gap 9 Blood Urea Nitrogen 17 Creatinine 0.63 Est Glomerular > 60 Filtrat Rate mL/min Glucose Level 109 # Calcium Level 8.8 Total Bilirubin 1.0 Direct Bilirubin 0.00 Indirect Bilirubin 1.0 Aspartate Amino 58 H Transf (AST/SGOT) Alanine 36 Aminotransferase (AL T/SGPT) Alkaline Phosphatase 56 Total Protein 6.1 Albumin 3.1 L Globulin 3.00 Albumin/Globulin 1.03 Ratio Thyroid Stimulating 0.783 Hormone (TSH) Test 01/14/19 09:03 Bedside Glucose 116 Subjective 24 Hr Interval Summary Free Text/Dictation confused still, Exam/Review of Systems Exam Vitals Vital Signs Date Temp Pulse Resp B/P (MAP) Pulse Ox O2 O2 Flow FiO2 Time Delivery Rate 01/14/19 98.4 64 20 143/70 94 Nasal 08:24 (94) Cannula 01/14/19 2.0 06:13 Intake and Output 01/13/19 01/13/19 01/14/19 1515:00 23:00 07:00 IntakeIntake Total 375 ml OutputOutput Total 1050 ml BalanceBalance -675 ml Constitutional: alert; No oriented Psych: confusion Head: normocephalic Eyes: PERRL, icteric (mildly ) Neck: supple Respiratory: crackles/rales, diminished breath sounds Cardiovascular: regular rate and rhythm Gastrointestinal: soft, non-tender, bowel sounds Extremities: other (Right lower extremity is encased and bandaged all the way from his toes to the mid leg and splint. Left lower extremity is unremarkable.) Neurological: confused; No focal weakness Skin: ecchymosis (R flank and R upper hip/ buttock) Results Results 24hrs Laboratory Tests Test 01/13/19 12:41 01/13/19 18:01 01/13/19 22:30 01/14/19 05:49 Bedside Glucose 134 124 102 White Blood Count 9.7 Red Blood Count 3.30 L Hemoglobin 9.9 L Hematocrit 29.2 L Mean Corpuscular 88.5 Volume Mean Corpuscular 30.0 Hemoglobin Mean Corpuscular 33.9 Hemoglobin Concent Red Cell 13.1 Distribution Width Platelet Count 239 Mean Platelet Volume 10.1 Immature 0.300 Granulocytes % Neutrophils % 68.4 Lymphocytes % 15.2 Monocytes % 13.1 H Eosinophils % 2.7 Basophils % 0.3 Nucleated Red Blood 0.0 Cells % Immature 0.030 Granulocytes # Neutrophils # 6.7 Lymphocytes # 1.5 Monocytes # 1.3 H Eosinophils # 0.3 Basophils # 0.0 Nucleated Red Blood 0.0 Cells # Sodium Level 143 Potassium Level 3.3 L Chloride Level 110 Carbon Dioxide Level 24 Anion Gap 9 Blood Urea Nitrogen 17 Creatinine 0.63 Est Glomerular > 60 Filtrat Rate mL/min Glucose Level 109 # Calcium Level 8.8 Total Bilirubin 1.0 Direct Bilirubin 0.00 Indirect Bilirubin 1.0 Aspartate Amino 58 H Transf (AST/SGOT) Alanine 36 Aminotransferase (AL T/SGPT) Alkaline Phosphatase 56 Total Protein 6.1 Albumin 3.1 L Globulin 3.00 Albumin/Globulin 1.03 Ratio Thyroid Stimulating 0.783 Hormone (TSH) Test 01/14/19 09:03 Bedside Glucose 116 Imaging Imaging PROCEDURE: DX Chest 1 View CLINICAL INDICATION: Short of breath. TECHNIQUE: AP Portable chest. COMPARISON: None FINDINGS: Surgical changes sternum. Normal cardiac and mediastinal configuration. Aortic calcified plaque present. No CHF or hilar enlargement. Lungs are clear. Old healed left clavicle fracture. IMPRESSION: No acute disease. RPTAT: HLRS Physician Dilia Date Time Electronically viewed and signed by Physician Dilia on 01/13/2019 23:12 RS/ CC: GEETA PHILLIPS [id number] Medications Medication Current Medications Ondansetron HCl (Zofran Inj) 4 mg Q4H PRN IV NAUSEA AND/OR VOMITING Last administered on 01/10/19 10:23; Admin Dose 4 MG; Start 01/09/19 at 08:00 Ascorbic Acid (Vitamin C) 1,000 mg DAILY PO Last administered on 01/13/19 09:03; Admin Dose 1,000 MG; Start 01/09/19 at 14:00; Status Hold Insulin Aspart (Novolog Insulin Pen) NOVOLOG *MILD* ALGORITHM WITH MEALS BEDTIME SC Last administered on 01/13/19 09:07; Admin Dose 2 UNIT; Start 01/09/19 at 17:55 Amlodipine Besylate (Norvasc) 2.5 mg DAILY PO Last administered on 01/13/19 09:05; Admin Dose 2.5 MG; Start 01/10/19 at 09:00; Status Hold Atorvastatin Calcium (Lipitor) 40 mg QHS PO Last administered on 01/12/19 21:30; Admin Dose 40 MG; Start 01/09/19 at 21:00; Status Hold Escitalopram Oxalate (Lexapro) 5 mg DAILY PO Last administered on 01/13/19 09:03; Admin Dose 5 MG; Start 01/10/19 at 09:00; Status Hold Folic Acid (Folic Acid) 1 mg DAILY PO Last administered on 01/13/19 09:05; Admin Dose 1 MG; Start 01/10/19 at 09:00; Status Hold Furosemide (Lasix) 20 mg DAILY PO Last administered on 01/13/19 09:04; Admin Dose 20 MG; Start 01/10/19 at 09:00 Losartan Potassium (Cozaar) 50 mg BID PO Last administered on 01/13/19 09:05; Admin Dose 50 MG; Start 01/09/19 at 21:00; Status Hold Metformin HCl (Glucophage) 500 mg WITH BREAKFAST DINNE PO Last administered on 01/13/19 09:02; Admin Dose 500 MG; Start 01/09/19 at 17:55; Status Hold Ranitidine HCl (Zantac) 150 mg Q12 PO Last administered on 01/13/19 09:03; Admin Dose 150 MG; Start 01/09/19 at 21:00; Status Hold Diagnostic Test (Pha) (Accu-Chek) 1 ea AC MEALS AND BEDTIME XX Last admin istered on 4/15/19at 21:00; Admin Dose 1 EA; Start 01/09/19 at 17:25 Miscellaneous Information 1 ea NOTE XX ; Start 01/09/19 at 15:00 Glucose (Glutose) 15 gm Q15M PRN PO DECREASED GLUCOSE; Start 01/09/19 at 15:00 Glucose (Glutose) 22.5 gm Q15M PRN PO DECREASED GLUCOSE; Start 01/09/19 at 15:00 Dextrose (D50w Syringe) 25 ml Q15M PRN IV DECREASED GLUCOSE; Start 01/09/19 at 15:00 Dextrose (D50w Syringe) 50 ml Q15M PRN IV DECREASED GLUCOSE; Start 01/09/19 at 15:00 Glucagon (Glucagen) 1 mg Q15M PRN IM DECREASED GLUCOSE; Start 01/09/19 at 15:00 Glucose (Glutose) 15 gm Q15M PRN BUCCAL DECREASED GLUCOSE; Start 01/09/19 at 15:00 Nitroglycerin (Nitroglycerin (Sl Tab) 0.4 Mg) 1 tab Q5M PRN SL ANGINA; Start 01/09/19 at 20:00 Heparin Sodium (Porcine) (Heparin (5000 Units/1ml)) 5,000 unit BID SC Last administered on 01/13/19at 22:38; Admin Dose 5,000 UNIT; Start 01/10/19 at 21:00 Finasteride (Proscar) 5 mg DAILY PO Last administered on 01/13/19at 09:03; Admin Dose 5 MG; Start 01/10/19 at 12:00; Status Hold Alfuzosin HCl (Uroxatral) 10 mg HS PO Last administered on 01/12/19at 21:29; Admin Dose 10 MG; Start 01/10/19 at 21:00; Status Hold Docusate Sodium (Colace) 200 mg BID PO Last administered on 01/13/19 22:22; Admin Dose 200 MG; Start 01/12/19 at 21:00 Senna (Senokot) 2 tab BID PO Last administered on 01/13/19at 09:03; Admin Dose 2 TAB; Start 01/12/19 at 21:00; Status Hold Aspirin (Halfprin) 81 mg BID PO Last administered on 01/13/19at 22:23; Admin Dose 81 MG; Start 01/12/19 at 21:00 Albuterol (Proventil 0.083% (Neb)) 2.5 mg Q4H RESP THERAPY PRN HHN SHORTNESS OF BREATH Last administered on 01/13/19at 19:11; Admin Dose 2.5 MG; Start 01/13/19 at 18:30 Levalbuterol (Xopenex Neb) 1.25 mg Q4H RESP THERAPY PRN HHN SOB and wheezing; Start 01/13/19 at 22:00 JORGE BOLANOS Jan 14, 2019 10:21
[2019-01-14] MEDS: HEPARIN 5,000 UNIT/1 ML VIAL SC SCH ×2 (10:30→20:48)
--- NOTE | 2019-01-14 11:08 | CONS ---
Assessment/Plan Assessment/Plan Hospital Course 68 yo M with reported hx of mild cognitive impairment, CABG and other comorbidities who presents for an elective R ankle arthrodesis. The pt was noted to be protractedly encephalopathic, for which neurology is consulted. This could be clinically consistent with an acute on chronic encephalopathy. Isamar-operative stroke is not yet excluded. CTH is without acute intracranial pathology, though is notable for generalized volume loss and old infarcts. P: MRI brain without contrast when medically able OK to cont Plavix for stroke prevention, per ops; LDL is at goal. Reorient as able Agree with seroquel qhs and prn Limit other sedating medications where possible PT/OT as tolerated Will follow clinically Consultation Date/Type/Reason Admit Date/Time Jan 10, 2019 at 16:40 Type of Consult Neurology Reason for Consultation ams Requesting Provider: JATINDER ROSE Date/Time of Note DATE: 01/14/19 TIME: 11:08 24 HR Interval Summary Free Text/Dictation Continues acute care. Pt reportedly agitated overnight, requiring haldol/ativan for sedation. Exam Vital Signs Vitals Vital Signs Date Temp Pulse Resp B/P (MAP) Pulse Ox O2 O2 Flow FiO2 Time Delivery Rate 01/14/19 99.5 63 22 146/74 96 Nasal 10:19 (98) Cannula 01/14/19 2.0 09:07 Intake and Output 01/13/19 01/13/19 01/14/19 1414:59 22:59 06:59 IntakeIntake Total 375 ml OutputOutput Total 1050 ml BalanceBalance -675 ml Exam PE: Gen Appearance: Anxious/agitated; sitter at bedside HEENT: Normocephalic Cardiovascular: Regular rate Abdomen: Soft Extremities: Dry; R leg brace NE: The patient was awake, though disoriented. Difficult to direct/redirect. Was not able to follow commands today. Cranial nerve examination was limited by mental status. Pupils were equal and reactive to light. There was no afferent pupillary defect. Funduscopic examination was limited. Face was grossly symmetric, w/ present corneal and cough reflexes. Tone was normal. Muscle bulk was normal. I did not see fasciculations. The patient had spontaneous movement of his extremities. Coordination and gait testing was limited by mental status. Arm and leg reflexes were within normal limits and symmetric. Alvarez's sign was absent. Plantar responses were flexor. VIRAJ ARAIZA NP Jan 14, 2019 11:08 CHACHA DONNELLY Jan 14, 2019 13:19
[2019-01-14] MEDS: QUETIAPINE 25 MG TAB PO SCH ×2 (11:30→20:27)
[2019-01-14] MEDS ORDERED: HALOPERIDOL 5 MG INJ IM PRN (11:30)
[2019-01-14] MEDS: DEXTROSE 5%-0.45% NACL 1,000 ML IV SCH (12:39)
[2019-01-14] MEDS: ACETAMINOPHEN 1000MG/100ML IV 100 ML IVPB PRN ×2 (14:42→21:21)
--- NOTE | 2019-01-14 18:09 | PN ---
Date/Time of Note Date/Time of Note DATE: 01/14/19 TIME: 18:08 Assessment/Plan Lines/Catheters IV Catheter Type (from [facility]): Peripheral IV Olivarez in Place (from [facility]): No Exam/Review of Systems Vital Signs Vitals Vital Signs Date Temp Pulse Resp B/P (MAP) Pulse Ox O2 O2 Flow FiO2 Time Delivery Rate 01/14/19 2.0 18:02 01/14/19 60 17:22 01/14/19 98.1 20 148/76 98 Room Air 16:00 (100) Intake and Output 01/13/19 01/13/19 01/14/19 1515:00 23:00 07:00 IntakeIntake Total 375 ml OutputOutput Total 1050 ml BalanceBalance -675 ml Results Result Diagram: 01/14/19 0549 01/14/19 0549 YOSI MARAVILLA MD Jan 14, 2019 18:08
[2019-01-15] VITALS (10 sets, daily range): BP systolic 134–171; BP diastolic 49–78; PULSE 56–66; RESP 18–20
[2019-01-15] MEDS: DEXTROSE 5%-0.45% NACL 1,000 ML IV SCH ×3 (00:50→20:36)
[2019-01-15] MEDS: ACETAMINOPHEN 1000MG/100ML IV 100 ML IVPB PRN ×2 (05:54→11:00)
[2019-01-15] MEDS: ACCU-CHEK XX SCH ×4 (07:00→20:32)
[2019-01-15] MEDS: INSULIN ASPART [NOVOLOG] 3 ML PEN SC SCH ×4 (07:57→20:32)
[2019-01-15] MEDS: DOCUSATE SODIUM 100 MG CAP PO SCH ×3 (08:35→20:29)
[2019-01-15] MEDS: ASPIRIN (EC) 81 MG TAB PO SCH ×2 (08:35→20:28)
[2019-01-15] MEDS: QUETIAPINE 25 MG TAB PO SCH (08:35)
[2019-01-15] MEDS: FUROSEMIDE 20 MG TAB PO SCH (08:36)
[2019-01-15] MEDS: HEPARIN 5,000 UNIT/1 ML VIAL SC SCH (08:49)
[2019-01-15] MEDS: POTASSIUM CHLORIDE 100 ML IVPB SCH ×4 (10:44→20:29)
--- NOTE | 2019-01-15 11:13 | PN ---
Date/Time of Note Date/Time of Note DATE: 01/15/19 TIME: 11:12 Assessment/Plan VTE Prophylaxis Risk score (from Ns)>0 risk: 17 SCD applied (from [facility]): Yes Pharmacological prophylaxis: other (asa bid) Lines/Catheters IV Catheter Type (from [facility]rs[facility]): Peripheral IV Urinary Cath still in place: No Assessment/Plan Hospital Course A 68-year-old male status post elective right ankle arthrodesis 01/09/19 for severe right osteoarthritis for whom we are consulted for management of his medical problems: 1. altered mentation / acute delirium (post op) -likely toxic metabolic from multiple meds -improving? -Continue low dose Seroquel and use Haldol only when necessary for break through agitation -continue 1:1 sitter for now -CT brain reviewed, CXR reviewed, abg with mild hypoxia and no hypercapnia and ammonia levels wnl -no UTI on UA -continue gentle IV hydration, ST curently evaluating the patient -Neurology following, appreciate input -close monitoring -Will consider MRI if no improvement with the above 2. History of coronary artery disease, status CABG, was also on Plavix therapy. -Continue home aspirin only for now, per Ortho, can resume Plavix 5 days after surgery. Nitroglycerin also as needed. -patient has ecchymoses R hip, but has risk of cardiac reocclusion, so we will need to resume plavix as soon as possible 3. Hypertension 4. Chronic depression and anxiety. 5. History of congestive heart failure. 6. Diabetes mellitus type 2. 7. Urinary retention: post op, -urology following -patient is s/p bethanechol -seems to be voiding on his own now, nurses monitoring PVR 8. Ecchymosis : -stable, continue to hold heparin for now -check coag panel -hgb stable , 9. Prev CVA (multiple) -likely predisposing factor to acute delirium -low suspicion for repeat CVA -see #1 DVT Prophylaxis : SCDs only for now Dispo: still confused, await clinical improvement Result Diagram: 01/15/19 0521 01/15/19 05 Results 24hrs Laboratory Tests Test 01/14/19 11:34 01/14/19 11:39 01/14/19 17:28 01/14/19 20:30 Prothrombin Time 16.1 H Prothrombin Time 1.3 Ratio INR International 1.28 Normalized Ratio Activated 30.0 Partial Thromboplast Time Ammonia < 9 L Bedside Glucose 115 135 136 Test 01/15/19 05:21 01/15/19 07:47 01/15/19 07:53 White Blood Count 11.9 #H Red Blood Count 3.62 L Hemoglobin 10.6 L Hematocrit 32.0 L Mean Corpuscular 88.4 Volume Mean Corpuscular 29.3 Hemoglobin Mean Corpuscular 33.1 Hemoglobin Concent Red Cell 13.1 Distribution Width Platelet Count 241 Mean Platelet Volume 10.8 H Immature 0.500 H Granulocytes % Neutrophils % 67.9 Lymphocytes % 16.4 Monocytes % 10.9 Eosinophils % 3.9 Basophils % 0.4 Nucleated Red Blood 0.0 Cells % Immature 0.060 H Granulocytes # Neutrophils # 8.1 H Lymphocytes # 1.9 Monocytes # 1.3 H Eosinophils # 0.5 Basophils # 0.1 Nucleated Red Blood 0.0 Cells # Sodium Level 143 Potassium Level 3.0 L Chloride Level 109 Carbon Dioxide Level 22 Anion Gap 12 Blood Urea Nitrogen 16 Creatinine 0.50 L Est Glomerular > 60 Filtrat Rate mL/min Glucose Level 134 Calcium Level 8.8 Phosphorus Level 3.9 Magnesium Level 1.8 Total Bilirubin 0.9 Direct Bilirubin 0.00 Indirect Bilirubin 0.9 Aspartate Amino 71 H Transf (AST/SGOT) Alanine 47 Aminotransferase (AL T/SGPT) Alkaline Phosphatase 60 Total Protein 6.3 Albumin 3.2 L Globulin 3.10 Albumin/Globulin 1.03 Ratio Bedside Glucose 168 169 Subjective 24 Hr Interval Summary Free Text/Dictation still confused, but less somnolent Exam/Review of Systems Exam Vitals Vital Signs Date Temp Pulse Resp B/P (MAP) Pulse Ox O2 O2 Flow FiO2 Time Delivery Rate 01/15/19 Nasal 2.0 09:59 Cannula 01/15/19 61 08:00 01/15/19 98.8 18 153/64 96 07:03 (93) Intake and Output 01/14/19 01/14/19 01/15/19 1515:00 23:00 07:00 IntakeIntake Total 100 ml 550 ml 1100 ml OutputOutput Total 500 ml 500 ml BalanceBalance 100 ml 50 ml 600 ml Constitutional: alert; No oriented, No distress Psych: confusion Head: normocephalic, atraumatic Eyes: PERRL; No icteric ENMT: mucosa pink and moist Neck: supple Respiratory: diminished breath sounds; No crackles/rales, No labored breathing Cardiovascular: regular rate and rhythm; No murmurs/extra sounds Gastrointestinal: soft, non-tender, bowel sounds Musculoskeletal: other (RLE remains in half cast and heavily bandaged, LLE negative for edema, no paresis ) Neurological: confused; No nl mental status Skin: ecchymosis Results Results 24hrs Laboratory Tests Test 01/14/19 11:34 01/14/19 11:39 01/14/19 17:28 01/14/19 20:30 Prothrombin Time 16.1 H Prothrombin Time 1.3 Ratio INR International 1.28 Normalized Ratio Activated 30.0 Partial Thromboplast Time Ammonia < 9 L Bedside Glucose 115 135 136 Test 01/15/19 05:21 01/15/19 07:47 01/15/19 07:53 White Blood Count 11.9 #H Red Blood Count 3.62 L Hemoglobin 10.6 L Hematocrit 32.0 L Mean Corpuscular 88.4 Volume Mean Corpuscular 29.3 Hemoglobin Mean Corpuscular 33.1 Hemoglobin Concent Red Cell 13.1 Distribution Width Platelet Count 241 Mean Platelet Volume 10.8 H Immature 0.500 H Granulocytes % Neutrophils % 67.9 Lymphocytes % 16.4 Monocytes % 10.9 Eosinophils % 3.9 Basophils % 0.4 Nucleated Red Blood 0.0 Cells % Immature 0.060 H Granulocytes # Neutrophils # 8.1 H Lymphocytes # 1.9 Monocytes # 1.3 H Eosinophils # 0.5 Basophils # 0.1 Nucleated Red Blood 0.0 Cells # Sodium Level 143 Potassium Level 3.0 L Chloride Level 109 Carbon Dioxide Level 22 Anion Gap 12 Blood Urea Nitrogen 16 Creatinine 0.50 L Est Glomerular > 60 Filtrat Rate mL/min Glucose Level 134 Calcium Level 8.8 Phosphorus Level 3.9 Magnesium Level 1.8 Total Bilirubin 0.9 Direct Bilirubin 0.00 Indirect Bilirubin 0.9 Aspartate Amino 71 H Transf (AST/SGOT) Alanine 47 Aminotransferase (AL T/SGPT) Alkaline Phosphatase 60 Total Protein 6.3 Albumin 3.2 L Globulin 3.10 Albumin/Globulin 1.03 Ratio Bedside Glucose 168 169 Medications Medication Current Medications Ondansetron HCl (Zofran Inj) 4 mg Q4H PRN IV NAUSEA AND/OR VOMITING Last administered on 01/10/19 10:23; Admin Dose 4 MG; Start 01/09/19 at 08:00 Ascorbic Acid (Vitamin C) 1,000 mg DAILY PO Last administered on 01/13/19 09:03; Admin Dose 1,000 MG; Start 01/09/19 at 14:00 Insulin Aspart (Novolog Insulin Pen) NOVOLOG *MILD* ALGORITHM WITH MEALS BEDTIME SC Last administered on 01/15/19 07:57; Admin Dose 1 UNIT; Start 01/09/19 at 17:55 Amlodipine Besylate (Norvasc) 2.5 mg DAILY PO Last administered on 01/13/19 09:05; Admin Dose 2.5 MG; Start 01/10/19 at 09:00 Atorvastatin Calcium (Lipitor) 40 mg QHS PO Last administered on 01/12/19 21:30; Admin Dose 40 MG; Start 01/09/19 at 21:00; Status Hold Escitalopram Oxalate (Lexapro) 5 mg DAILY PO Last administered on 01/13/19 09:03; Admin Dose 5 MG; Start 01/10/19 at 09:00 Folic Acid (Folic Acid) 1 mg DAILY PO Last administered on 01/13/19 09:05; Admin Dose 1 MG; Start 01/10/19 at 09:00 Furosemide (Lasix) 20 mg DAILY PO Last administered on 01/15/19 08:36; Admin Dose 20 MG; Start 01/10/19 at 09:00 Losartan Potassium (Cozaar) 50 mg BID PO Last administered on 01/13/19 09:05; Admin Dose 50 MG; Start 01/09/19 at 21:00; Status Hold Metformin HCl (Glucophage) 500 mg WITH BREAKFAST DINNE PO Last administered on 01/13/19 09:02; Admin Dose 500 MG; Start 01/09/19 at 17:55; Status Hold Ranitidine HCl (Zantac) 150 mg Q12 PO Last administered on 01/13/19 09:03; Adm in Dose 150 MG; Start 01/09/19 at 21:00; Status Hold Diagnostic Test (Pha) (Accu-Chek) 1 ea AC MEALS AND BEDTIME XX Last administered on 01/14/19 21:24; Admin Dose 1 EA; Start 01/09/19 at 17:25 Miscellaneous Information 1 ea NOTE XX ; Start 01/09/19 at 15:00 Glucose (Glutose) 15 gm Q15M PRN PO DECREASED GLUCOSE; Start 01/09/19 at 15:00 Glucose (Glutose) 22.5 gm Q15M PRN PO DECREASED GLUCOSE; Start 01/09/19 at 15:00 Dextrose (D50w Syringe) 25 ml Q15M PRN IV DECREASED GLUCOSE; Start 01/09/19 at 15:00 Dextrose (D50w Syringe) 50 ml Q15M PRN IV DECREASED GLUCOSE; Start 01/09/19 at 15:00 Glucagon (Glucagen) 1 mg Q15M PRN IM DECREASED GLUCOSE; Start 01/09/19 at 15:00 Glucose (Glutose) 15 gm Q15M PRN BUCCAL DECREASED GLUCOSE; Start 01/09/19 at 15:00 Nitroglycerin (Nitroglycerin (Sl Tab) 0.4 Mg) 1 tab Q5M PRN SL ANGINA; Start 01/09/19 at 20:00 Finasteride (Proscar) 5 mg DAILY PO Last administered on 01/13/19at 09:03; Admin Dose 5 MG; Start 01/10/19 at 12:00 Alfuzosin HCl (Uroxatral) 10 mg HS PO Last administered on 01/12/19at 21:29; Admin Dose 10 MG; Start 01/10/19 at 21:00; Status Hold Docusate Sodium (Colace) 200 mg BID PO Last administered on 01/14/19at 20:26; Admin Dose 200 MG; Start 01/12/19 at 21:00 Senna (Senokot) 2 tab BID PO Last administered on 01/13/19at 09:03; Admin Dose 2 TAB; Start 01/12/19 at 21:00; Status Hold Aspirin (Halfprin) 81 mg BID PO Last administered on 01/15/19at 08:35; Admin Dose 81 MG; Start 01/12/19 at 21:00 Albuterol (Proventil 0.083% (Neb)) 2.5 mg Q4H RESP THERAPY PRN HHN SHORTNESS OF BREATH Last administered on 01/13/19at 19:11; Admin Dose 2.5 MG; Start 01/13/19 at 18:30 Levalbuterol (Xopenex Neb) 1.25 mg Q4H RESP THERAPY PRN HHN SOB and wheezing Last administered on 01/15/19at 04:48; Admin Dose 1.25 MG; Start 01/13/19 at 22:00 Dextrose/Sodium Chloride 1,000 ml @ 75 mls/hr [id number] IV Last administered on 01/15/19at 04:35; Admin Dose 75 MLS/HR; Start 01/14/19 at 11:30 Haloperidol (Haldol) 3 mg Q6H PRN IM agitation/ confusion Last administered on 01/15/19at 01:09; Admin Dose 3 MG; Start 01/14/19 at 11:30 Acetaminophen 100 ml @ 400 mls/hr Q6H PRN IVPB pain Last administered on 01/15/19at 05:54; Admin Dose 400 MLS/HR; Start 01/14/19 at 11:30; Stop 01/15/19 at 11:29 Potassium Chloride 100 ml @ 50 mls/hr Q2H IVPB Last administered on 01/15/19at 10:44; Admin Dose 50 MLS/HR; Start 01/15/19 at 10:30; Stop 01/15/19 at 18:29 Quetiapine Fumarate (Seroquel) 25 mg QAM PO ; Start 01/16/19 at 09:00; Status UNV Quetiapine Fumarate (Seroquel) 50 mg HS PO ; Start 01/15/19 at 21:00; Status UNV JORGE BOLANOS Jan 15, 2019 11:13
--- NOTE | 2019-01-15 13:53 | CONS ---
Assessment/Plan Assessment/Plan Hospital Course (Demo Recall) IMPRESSION: 1. Chest pain, assess for acute coronary syndrome with the patient's chest pain resolved at this time. 2. Coronary artery disease, status post coronary artery bypass graft surgery in 2017. 3. Hypertension-uncontrolled 4. Postoperative status post ankle arthrodesis. 5. Diabetes mellitus. 6. Psychiatric disorder. 7. Dyslipidemia. Recc: -Tele -Continue norvasc and resume losartan given uncontrolled BP -Continue asa -Plavix to be resumed when om per surgery. NO h/o stents -Contineu prophylactic abx -pain control -Follow MS closely Consultation Date/Type/Reason Admit Date/Time Jan 10, 2019 at 16:40 Initial Consult Date 01/10/19 Type of Consult Cardiology Reason for Consultation chest pain Requesting Provider: JATINDER ROSE Date/Time of Note DATE: 01/15/19 TIME: 13:49 Exam/Review of Systems Vital Signs Vitals Vital Signs Date Temp Pulse Resp B/P (MAP) Pulse Ox O2 O2 Flow FiO2 Time Delivery Rate 01/15/19 97.6 66 20 153/69 98 Nasal 11:42 (97) Cannula 01/15/19 2.0 09:59 Intake and Output 01/14/19 01/14/19 01/15/19 1515:00 23:00 07:00 IntakeIntake Total 100 ml 550 ml 1100 ml OutputOutput Total 500 ml 500 ml BalanceBalance 100 ml 50 ml 600 ml Exam Exam Review of Systems: CONSTITUTIONAL: No fevers, chills. PULMONARY: No sob CARDIOVASCULAR: No chest pain/palpitations GASTROINTESTINAL: No nausea/vomiting. GENITOURINARY: No hematuria/dysuria. MUSCULOSKELETAL: No myagias/arthalgias. PSYCHIATRIC: The patient denies depression. NEUROLOGIC: No weakness Constitutional: alert Psych: no complaints Head: normocephalic ENMT: mucosa pink and moist Neck: supple, jvd (9 cm water) Respiratory: diminished breath sounds Cardiovascular: regular rate and rhythm Gastrointestinal: soft, non-tender Musculoskeletal: muscle tone (normal) Extremities: edema (none) Neurological: confused Labs Result Diagram: 01/15/19 0521 01/15/19 0521 Results 24hrs Laboratory Tests Test 01/14/19 17:28 01/14/19 20:30 01/15/19 05:21 01/15/19 07:47 Bedside Glucose 135 136 168 White Blood Count 11.9 #H Red Blood Count 3.62 L Hemoglobin 10.6 L Hematocrit 32.0 L Mean Corpuscular 88.4 Volume Mean Corpuscular 29.3 Hemoglobin Mean Corpuscular 33.1 Hemoglobin Concent Red Cell 13.1 Distribution Width Platelet Count 241 Mean Platelet Volume 10.8 H Immature 0.500 H Granulocytes % Neutrophils % 67.9 Lymphocytes % 16.4 Monocytes % 10.9 Eosinophils % 3.9 Basophils % 0.4 Nucleated Red Blood 0.0 Cells % Immature 0.060 H Granulocytes # Neutrophils # 8.1 H Lymphocytes # 1.9 Monocytes # 1.3 H Eosinophils # 0.5 Basophils # 0.1 Nucleated Red Blood 0.0 Cells # Sodium Level 143 Potassium Level 3.0 L Chloride Level 109 Carbon Dioxide Level 22 Anion Gap 12 Blood Urea Nitrogen 16 Creatinine 0.50 L Est Glomerular > 60 Filtrat Rate mL/min Glucose Level 134 Calcium Level 8.8 Phosphorus Level 3.9 Magnesium Level 1.8 Total Bilirubin 0.9 Direct Bilirubin 0.00 Indirect Bilirubin 0.9 Aspartate Amino 71 H Transf (AST/SGOT) Alanine 47 Aminotransferase (AL T/SGPT) Alkaline Phosphatase 60 Total Protein 6.3 Albumin 3.2 L Globulin 3.10 Albumin/Globulin 1.03 Ratio Test 01/15/19 07:53 01/15/19 12:06 Bedside Glucose 169 139 Medications Medications Current Medications Ondansetron HCl (Zofran Inj) 4 mg Q4H PRN IV NAUSEA AND/OR VOMITING Last administered on 01/10/19at 10:23; Admin Dose 4 MG; Start 01/09/19 at 08:00 Ascorbic Acid (Vitamin C) 1,000 mg DAILY PO Last administered on 01/13/19at 09:03; Admin Dose 1,000 MG; Start 01/09/19 at 14:00 Insulin Aspart (Novolog Insulin Pen) NOVOLOG *MILD* ALGORITHM WITH MEALS BEDTIM E SC Last administered on 01/15/19at 07:57; Admin Dose 1 UNIT; Start 01/09/19 at 17:55 Amlodipine Besylate (Norvasc) 2.5 mg DAILY PO Last administered on 01/13/19at 09:05; Admin Dose 2.5 MG; Start 01/10/19 at 09:00 Atorvastatin Calcium (Lipitor) 40 mg QHS PO Last administered on 01/12/19 21:30; Admin Dose 40 MG; Start 01/09/19 at 21:00; Status Hold Escitalopram Oxalate (Lexapro) 5 mg DAILY PO Last administered on 01/13/19 09:03; Admin Dose 5 MG; Start 01/10/19 at 09:00 Folic Acid (Folic Acid) 1 mg DAILY PO Last administered on 01/13/19 09:05; Admin Dose 1 MG; Start 01/10/19 at 09:00 Furosemide (Lasix) 20 mg DAILY PO Last administered on 01/15/19 08:36; Admin Dose 20 MG; Start 01/10/19 at 09:00 Losartan Potassium (Cozaar) 50 mg BID PO Last administered on 01/13/19 09:05; Admin Dose 50 MG; Start 01/09/19 at 21:00; Status Hold Metformin HCl (Glucophage) 500 mg WITH BREAKFAST DINNE PO Last administered on 01/13/19 09:02; Admin Dose 500 MG; Start 01/09/19 at 17:55; Status Hold Ranitidine HCl (Zantac) 150 mg Q12 PO Last administered on 01/13/19 09:03; Admin Dose 150 MG; Start 01/09/19 at 21:00; Status Hold Diagnostic Test (Pha) (Accu-Chek) 1 ea AC MEALS AND BEDTIME XX Last administered on 01/14/19at 21:24; Admin Dose 1 EA; Start 01/09/19 at 17:25 Miscellaneous Information 1 ea NOTE XX ; Start 01/09/19 at 15:00 Glucose (Glutose) 15 gm Q15M PRN PO DECREASED GLUCOSE; Start 01/09/19 at 15:00 Glucose (Glutose) 22.5 gm Q15M PRN PO DECREASED GLUCOSE; Start 01/09/19 at 15:00 Dextrose (D50w Syringe) 25 ml Q15M PRN IV DECREASED GLUCOSE; Start 01/09/19 at 15:00 Dextrose (D50w Syringe) 50 ml Q15M PRN IV DECREASED GLUCOSE; Start 01/09/19 at 15:00 Glucagon (Glucagen) 1 mg Q15M PRN IM DECREASED GLUCOSE; Start 01/09/19 at 15:00 Glucose (Glutose) 15 gm Q15M PRN BUCCAL DECREASED GLUCOSE; Start 01/09/19 at 15:00 Nitroglycerin (Nitroglycerin (Sl Tab) 0.4 Mg) 1 tab Q5M PRN SL ANGINA; Start 01/09/19 at 20:00 Finasteride (Proscar) 5 mg DAILY PO Last administered on 01/13/19 09:03; Admin Dose 5 MG; Start 01/10/19 at 12:00 Alfuzosin HCl (Uroxatral) 10 mg HS PO Last administered on 01/12/19 21:29; Admin Dose 10 MG; Start 01/10/19 at 21:00; Status Hold Docusate Sodium (Colace) 200 mg BID PO Last administered on 01/14/19 20:26; Admin Dose 200 MG; Start 01/12/19 at 21:00 Senna (Senokot) 2 tab BID PO Last administered on 01/13/19 09:03; Admin Dose 2 TAB; Start 01/12/19 at 21:00; Status Hold Aspirin (Halfprin) 81 mg BID PO Last administered on 01/15/19 08:35; Admin Dose 81 MG; Start 01/12/19 at 21:00 Albuterol (Proventil 0.083% (Neb)) 2.5 mg Q4H RESP THERAPY PRN HHN SHORTNESS OF BREATH Last administered on 01/13/19 19:11; Admin Dose 2.5 MG; Start 01/13/19 at 18:30 Levalbuterol (Xopenex Neb) 1.25 mg Q4H RESP THERAPY PRN HHN SOB and wheezing Last administered on 01/15/19 04:48; Admin Dose 1.25 MG; Start 01/13/19 at 22:00 Dextrose/Sodium Chloride 1,000 ml @ 75 mls/hr [id number] IV Last administered on 01/15/19 04:35; Admin Dose 75 MLS/HR; Start 01/14/19 at 11:30 Haloperidol (Haldol) 3 mg Q6H PRN IM agitation/ confusion Last administered on 01/15/19 01:09; Admin Dose 3 MG; Start 01/14/19 at 11:30 Potassium Chloride 100 ml @ 50 mls/hr Q2H IVPB Last administered on 01/15/19 13:17; Admin Dose 50 MLS/HR; Start 01/15/19 at 10:30; Stop 01/15/19 at 18:29 Quetiapine Fumarate (Seroquel) 25 mg QAM PO ; Start 01/16/19 at 09:00 Quetiapine Fumarate (Seroquel) 50 mg HS PO ; Start 01/15/19 at 21:00 HARSH CARRILLO Jan 15, 2019 13:53
--- NOTE | 2019-01-15 14:04 | CONS ---
Assessment/Plan Assessment/Plan Hospital Course 68 yo M with reported hx of mild cognitive impairment, CABG and other comorbidities who presents for an elective R ankle arthrodesis. The pt was noted to be protractedly encephalopathic, for which neurology is consulted. The clinical picture is consistent w/ an acute on chronic encephalopathy w/ psychosis.. Superimposed galen-operative stroke is not yet excluded. CTH is without acute intracranial pathology, though is notable for generalized volume loss and old infarcts. QTC 502 P: MRI brain without contrast when medically able OK to cont Plavix for stroke prevention, per ops; LDL is at goal. Reorient as necessary Agree with seroquel qhs; add 12.5mg q8h scheduled for now; repeat ECG for QTc in am.. Hold Lexapro in the acute setting Limit other sedating medications where possible PT/OT/ST as necessary Other management per primary Will follow clinically Consultation Date/Type/Reason Admit Date/Time Jan 10, 2019 at 16:40 Type of Consult Neurology Requesting Provider: JATINDER ROSE Date/Time of Note DATE: 01/15/19 TIME: 14:04 24 HR Interval Summary Free Text/Dictation Continues acute care. Exam Vital Signs Vitals Vital Signs Date Temp Pulse Resp B/P (MAP) Pulse Ox O2 O2 Flow FiO2 Time Delivery Rate 01/15/19 Nasal 2.0 13:57 Cannula 01/15/19 57 12:00 01/15/19 97.6 20 153/69 98 11:42 (97) Intake and Output 01/14/19 01/14/19 01/15/19 1515:00 23:00 07:00 IntakeIntake Total 100 ml 550 ml 1100 ml OutputOutput Total 500 ml 500 ml BalanceBalance 100 ml 50 ml 600 ml Exam PE: Gen Appearance: Anxious/agitated; sitter at bedside HEENT: Normocephalic Cardiovascular: Regular rate Abdomen: Soft Extremities: Dry; R leg brace NE: The patient was awake, though disoriented. Difficult to direct/redirect. Was not able to follow commands today. Cranial nerve examination was limited by mental status. Pupils were equal and reactive to light. There was no afferent pupillary defect. Funduscopic examination was limited. Face was grossly symmetric, w/ present corneal and cough reflexes. Tone was normal. Muscle bulk was normal. I did not see fasciculations. The patient had spontaneous movement of his extremities. Coordination and gait testing was limited by mental status. Arm and leg reflexes were within normal limits and symmetric. Alvarez's sign was absent. Plantar responses were flexor. CHACHA DONNELLY Jan 15, 2019 14:04 VIRAJ ARAIZA NP Jan 15, 2019 16:34
[2019-01-15] MEDS: ACETAMINOPHEN 1000MG/100ML IV 100 ML IVPB SCH (17:51)
--- NOTE | 2019-01-15 20:34 | PN ---
Date/Time of Note Date/Time of Note DATE: 01/15/19 TIME: 20:34 Assessment/Plan Lines/Catheters IV Catheter Type (from [facility]): Peripheral IV Olivarez in Place (from [facility]): No Exam/Review of Systems Vital Signs Vitals Vital Signs Date Temp Pulse Resp B/P (MAP) Pulse Ox O2 O2 Flow FiO2 Time Delivery Rate 01/15/19 98.1 58 18 134/49 100 Nasal 2.0 19:38 (77) Cannula Intake and Output 01/14/19 01/14/19 01/15/19 1515:00 23:00 07:00 IntakeIntake Total 100 ml 550 ml 1100 ml OutputOutput Total 500 ml 500 ml BalanceBalance 100 ml 50 ml 600 ml Results Result Diagram: 01/15/19 0521 01/15/19 0521 YOSI MARAVILLA MD Jan 15, 2019 20:34
[2019-01-15] MEDS ORDERED: QUETIAPINE 25 MG TAB PO SCH (21:00)
[2019-01-15] MEDS ORDERED: KETOROLAC 15 MG INJ IV PRN (22:00)
[2019-01-16] VITALS (7 sets, daily range): BP systolic 132–144; BP diastolic 54–70; PULSE 52–71; RESP 18–20
[2019-01-16] MEDS: ACETAMINOPHEN 1000MG/100ML IV 100 ML IVPB SCH ×3 (00:04→12:06)
[2019-01-16] MEDS: ACCU-CHEK XX SCH ×2 (07:00→11:30)
[2019-01-16] MEDS: INSULIN ASPART [NOVOLOG] 3 ML PEN SC SCH ×2 (08:00→13:04)
[2019-01-16] MEDS: FINASTERIDE 5 MG TAB PO SCH (09:00)
[2019-01-16] MEDS ORDERED: QUETIAPINE 25 MG TAB PO SCH ×2 (09:00)
[2019-01-16] MEDS ORDERED: LOSARTAN 50 MG TAB PO SCH (09:00)
[2019-01-16] MEDS: DOCUSATE SODIUM 100 MG CAP PO SCH (09:00)
[2019-01-16] MEDS: ASCORBIC ACID 500 MG TAB PO SCH (09:15)
[2019-01-16] MEDS: FOLIC ACID 1 MG TAB PO SCH (09:16)
[2019-01-16] MEDS: AMLODIPINE 2.5 MG TAB PO SCH (09:16)
[2019-01-16] MEDS: FUROSEMIDE 20 MG TAB PO SCH (09:17)
[2019-01-16] MEDS: ASPIRIN (EC) 81 MG TAB PO SCH (09:18)
[2019-01-16] MEDS ORDERED: POTASSIUM CHLORIDE 100 ML IVPB SCH (10:00)
--- NOTE | 2019-01-16 11:18 | CONS ---
Assessment/Plan Assessment/Plan Hospital Course 68 yo M with reported hx of mild cognitive impairment, CABG and other comorbidities who presents for an elective R ankle arthrodesis. The pt was noted to be protractedly encephalopathic, for which neurology is consulted. The clinical picture is consistent w/ an acute on chronic encephalopathy w/ psychosis.. Superimposed galen-operative stroke is not yet excluded. CTH is without acute intracranial pathology, though is notable for generalized volume loss and old infarcts. QTC 502 P: MRI brain without contrast when medically able OK to cont Plavix for stroke prevention, per ops; LDL is at goal. Reorient as necessary Agree with seroquel qhs; Continue 12.5mg q8h scheduled for now; await repeat ECG for QTc Hold Lexapro in the acute setting Limit other sedating medications where possible PT/OT/ST as necessary Other management per primary Will follow clinically Consultation Date/Type/Reason Admit Date/Time Jan 10, 2019 at 16:40 Type of Consult Neurology Reason for Consultation ams Requesting Provider: JATINDER ROSE Date/Time of Note DATE: 01/16/19 TIME: 11:17 24 HR Interval Summary Free Text/Dictation Continues acute care. Pt reportedly is more alert and oriented today. Family is requesting discharge home. Exam Vital Signs Vitals Vital Signs Date Temp Pulse Resp B/P (MAP) Pulse Ox O2 O2 Flow FiO2 Time Delivery Rate 01/16/19 61 08:47 01/16/19 98.4 20 144/70 99 08:13 (94) 01/16/19 Nasal 2.0 04:00 Cannula Intake and Output 01/15/19 01/15/19 01/16/19 1515:00 23:00 07:00 IntakeIntake Total 475 ml 550 ml OutputOutput Total 1200 ml BalanceBalance 475 ml -650 ml Exam PE: Gen Appearance: Calm, NAD HEENT: Normocephalic Cardiovascular: Regular rate Abdomen: Soft Extremities: Dry; R leg brace NE: The patient was awake, alert, and oriented to self and hospital. Able to follow simple axial and appendicular commands. Cranial nerve examination was limited by mental status. Pupils were equal and reactive to light. There was no afferent pupillary defect. Funduscopic examination was limited. Face was grossly symmetric, w/ present corneal and cough reflexes. Tone was normal. Muscle bulk was normal. I did not see fasciculations. The patient had spontaneous movement of his extremities. Coordination and gait testing was limited by mental status. Arm and leg reflexes were within normal limits and symmetric. Alvarez's sign was absent. Plantar responses were flexor. VIRAJ ARAIZA NP Jan 16, 2019 11:18 CHACHA DONNELLY Jan 16, 2019 14:30
--- NOTE | 2019-01-16 11:48 | CONS ---
Assessment/Plan Assessment/Plan Hospital Course (Demo Recall) IMPRESSION: 1. Chest pain, assess for acute coronary syndrome with the patient's chest pain resolved at this time. 2. Coronary artery disease, status post coronary artery bypass graft surgery in 2017. 3. Hypertension-uncontrolled 4. Postoperative status post ankle arthrodesis. 5. Diabetes mellitus. 6. Psychiatric disorder. 7. Dyslipidemia. Recc: -Tele -Continue norvasc and resume losartan given uncontrolled BP -Continue asa -Plavix to be resumed when ok per surgery. NO h/o stents -Contineu prophylactic abx -pain control -Follow MS closely -ongoinmg speech and swallow eval and training Consultation Date/Type/Reason Admit Date/Time Jan 10, 2019 at 16:40 Initial Consult Date 01/10/19 Type of Consult Cardiology Reason for Consultation chest pain Requesting Provider: JATINDER ROSE Date/Time of Note DATE: 01/16/19 TIME: 11:45 Exam/Review of Systems Vital Signs Vitals Vital Signs Date Temp Pulse Resp B/P (MAP) Pulse Ox O2 O2 Flow FiO2 Time Delivery Rate 01/16/19 61 08:47 01/16/19 98.4 20 144/70 99 08:13 (94) 01/16/19 Nasal 2.0 04:00 Cannula Intake and Output 01/15/19 01/15/19 01/16/19 1515:00 23:00 07:00 IntakeIntake Total 475 ml 550 ml OutputOutput Total 1200 ml BalanceBalance 475 ml -650 ml Exam Exam Review of Systems: CONSTITUTIONAL: No fevers, chills. PULMONARY: No sob CARDIOVASCULAR: No chest pain/palpitations GASTROINTESTINAL: No nausea/vomiting. GENITOURINARY: No hematuria/dysuria. MUSCULOSKELETAL: pain PSYCHIATRIC: The patient denies depression. NEUROLOGIC: No weakness Constitutional: alert Psych: no complaints Head: normocephalic ENMT: mucosa pink and moist Neck: supple, jvd (9 cm water) Respiratory: diminished breath sounds (at bases/B) Cardiovascular: regular rate and rhythm Gastrointestinal: soft, non-tender Musculoskeletal: muscle tone (normal) Extremities: edema (none), other (leg in CPM) Neurological: other (No focal deficvits) Labs Result Diagram: 01/16/19 0601/16/19 06 Results 24hrs Laboratory Tests Test 01/15/19 12:06 01/15/19 16:33 01/15/19 20:25 01/16/19 06:05 Bedside Glucose 139 138 131 White Blood Count 11.4 H Red Blood Count 3.63 L Hemoglobin 10.6 L Hematocrit 32.4 L Mean Corpuscular 89.3 Volume Mean Corpuscular 29.2 Hemoglobin Mean Corpuscular 32.7 Hemoglobin Concent Red Cell 13.2 Distribution Width Platelet Count 339 # Mean Platelet Volume 9.6 Immature 0.600 H Granulocytes % Neutrophils % 67.3 Lymphocytes % 18.0 Monocytes % 8.1 Eosinophils % 5.5 Basophils % 0.5 Nucleated Red Blood 0.0 Cells % Immature 0.070 H Granulocytes # Neutrophils # 7.6 H Lymphocytes # 2.0 Monocytes # 0.9 Eosinophils # 0.6 H Basophils # 0.1 Nucleated Red Blood 0.0 Cells # Sodium Level 143 Potassium Level 3.1 L Chloride Level 114 H Carbon Dioxide Level 20 L Anion Gap 9 Blood Urea Nitrogen 12 Creatinine 0.58 L Est Glomerular > 60 Filtrat Rate mL/min Glucose Level 135 Calcium Level 9.0 Total Bilirubin 0.6 Direct Bilirubin 0.00 Indirect Bilirubin 0.6 Aspartate Amino 44 Transf (AST/SGOT) Alanine 43 Aminotransferase (AL T/SGPT) Alkaline Phosphatase 60 Total Protein 6.3 Albumin 3.2 L Globulin 3.10 Albumin/Globulin 1.03 Ratio Test 01/16/19 08:19 Bedside Glucose 146 Medications Medications Current Medications Ondansetron HCl (Zofran Inj) 4 mg Q4H PRN IV NAUSEA AND/OR VOMITING Last administered on 01/10/19at 10:23; Admin Dose 4 MG; Start 01/09/19 at 08:00 Ascorbic Acid (Vitamin C) 1,000 mg DAILY PO Last administered on 01/16/19at 09:15; Admin Dose 1,000 MG; Start 01/09/19 at 14:00 Insulin Aspart (Novolog Insulin Pen) NOVOLOG *MILD* ALGORITHM WITH MEALS BEDTIME SC Last administered on 01/15/19at 07:57; Admin Dose 1 UNIT; Start 01/09/19 at 17:55 Amlodipine Besylate (Norvasc) 2.5 mg DAILY PO Last administered on 01/16/19at 09:16; Admin Dose 2.5 MG; Start 01/10/19 at 09:00 Atorvastatin Calcium (Lipitor) 40 mg QHS PO Last administered on 01/12/19at 21:30; Admin Dose 40 MG; Start 01/09/19 at 21:00; Status Hold Folic Acid (Folic Acid) 1 mg DAILY PO Last administered on 01/16/19 09:16; Admin Dose 1 MG; Start 01/10/19 at 09:00 Furosemide (Lasix) 20 mg DAILY PO Last administered on 01/16/19 09:17; Admin Dose 20 MG; Start 01/10/19 at 09:00 Metformin HCl (Glucophage) 500 mg WITH BREAKFAST DINNE PO Last administered on 01/13/19 09:02; Admin Dose 500 MG; Start 01/09/19 at 17:55; Status Hold Ranitidine HCl (Zantac) 150 mg Q12 PO Last administered on 01/13/19 09:03; Admin Dose 150 MG; Start 01/09/19 at 21:00; Status Hold Diagnostic Test (Pha) (Accu-Chek) 1 ea AC MEALS AND BEDTIME XX Last administered on 01/14/19at 21:24; Admin Dose 1 EA; Start 01/09/19 at 17:25 Miscellaneous Information 1 ea NOTE XX ; Start 01/09/19 at 15:00 Glucose (Glutose) 15 gm Q15M PRN PO DECREASED GLUCOSE; Start 01/09/19 at 15:00 Glucose (Glutose) 22.5 gm Q15M PRN PO DECREASED GLUCOSE; Start 01/09/19 at 15:00 Dextrose (D50w Syringe) 25 ml Q15M PRN IV DECREASED GLUCOSE; Start 01/09/19 at 15:00 Dextrose (D50w Syringe) 50 ml Q15M PRN IV DECREASED GLUCOSE; Start 01/09/19 at 15:00 Glucagon (Glucagen) 1 mg Q15M PRN IM DECREASED GLUCOSE; Start 01/09/19 at 15:00 Glucose (Glutose) 15 gm Q15M PRN BUCCAL DECREASED GLUCOSE; Start 01/09/19 at 15:00 Nitroglycerin (Nitroglycerin (Sl Tab) 0.4 Mg) 1 tab Q5M PRN SL ANGINA; Start 01/09/19 at 20:00 Finasteride (Proscar) 5 mg DAILY PO Last administered on 01/13/19 09:03; Admin Dose 5 MG; Start 01/10/19 at 12:00 Alfuzosin HCl (Uroxatral) 10 mg HS PO Last administered on 01/12/19 21:29; Admin Dose 10 MG; Start 01/10/19 at 21:00; Status Hold Docusate Sodium (Colace) 200 mg BID PO Last administered on 01/14/19 20:26; Admin Dose 200 MG; Start 01/12/19 at 21:00 Senna (Senokot) 2 tab BID PO Last administered on 01/13/19 09:03; Admin Dose 2 TAB; Start 01/12/19 at 21:00; Status Hold Aspirin (Halfprin) 81 mg BID PO Last administered on 01/16/19 09:18; Admin Dose 81 MG; Start 01/12/19 at 21:00 Albuterol (Proventil 0.083% (Neb)) 2.5 mg Q4H RESP THERAPY PRN HHN SHORTNESS OF BREATH Last administered on 01/13/19 19:11; Admin Dose 2.5 MG; Start 01/13/19 at 18:30 Levalbuterol (Xopenex Neb) 1.25 mg Q4H RESP THERAPY PRN HHN SOB and wheezing Last administered on 01/15/19 04:48; Admin Dose 1.25 MG; Start 01/13/19 at 22:00 Dextrose/Sodium Chloride 1,000 ml @ 75 mls/hr [id number] IV Last administered on 01/15/19 20:36; Admin Dose 75 MLS/HR; Start 01/14/19 at 11:30 Quetiapine Fumarate (Seroquel) 50 mg HS PO Last administered on 01/15/19 20:28; Admin Dose 50 MG; Start 01/15/19 at 21:00 Losartan Potassium (Cozaar) 50 mg DAILY PO Last administered on 01/16/19 09:15; Admin Dose 50 MG; Start 01/16/19 at 09:00 Acetaminophen 100 ml @ 400 mls/hr Q6H IVPB Last administered on 01/16/19 06:19; Admin Dose 400 MLS/HR; Start 01/15/19 at 18:30; Stop 01/16/19 at 18:29 Quetiapine Fumarate (Seroquel) 12.5 mg Q8H PO Last administered on 4/18/19at 09:17; Admin Dose 12.5 MG; Start 01/16/19 at 09:00 Ketorolac Tromethamine (Toradol) 15 mg Q6H PRN IV PAIN Last administered on 01/16/19at 08:52; Admin Dose 15 MG; Start 01/15/19 at 22:00; Stop 01/17/19 at 22:00 Potassium Chloride 100 ml @ 50 mls/hr Q2H IVPB ; Start 01/16/19 at 10:00; Stop 01/16/19 at 15:59 HARSH CARRILLO Jan 16, 2019 11:48
[2019-01-16] MEDS: DEXTROSE 5%-0.45% NACL 1,000 ML IV SCH (12:03)
[2019-01-16] MEDS ORDERED: ALBUTEROL 0.083% (NEB) 2.5 MG/3 ML AMP HHN STA (12:57)
[2019-01-16] MEDS ORDERED: ALBUTEROL 0.083% (NEB) 2.5 MG/3 ML AMP HHN PRN (13:00)
--- NOTE | 2019-01-16 13:10 | PDOCDIS ---
Discharge Instructions CONDITION [id number] Patient Condition: [id number] Stable HOME CARE INSTRUCTIONS: [id number] Special Diet: Zerxf2f pureed diet with strict aspiration precautions ACTIVITY: [id number] Activity Restrictions: [id number] Slowly Increase Activity Rest between Activity FOLLOW UP/APPOINTMENTS Follow-up Plan [place]. [place] [facility] [place] going [place] 2. PT / OT/ ST will be seeing you at home for continued therapy 3. F/u with your PCP in the next 1 week to ensure continued improvement JORGE BOLANOS Jan 16, 2019 13:10
[2019-01-16] MEDS ORDERED: QUET25TA33 PO ×2 (13:14)
[2019-01-16] MEDS ORDERED: ASC500 PO (13:14)
[2019-01-16] MEDS ORDERED: QUET25TA PO (13:14)
--- NOTE | 2019-01-16 14:33 | PN ---
Date/Time of Note Date/Time of Note DATE: 01/16/19 TIME: 14:33 Assessment/Plan Lines/Catheters IV Catheter Type (from [facility]): Peripheral IV Olivarez in Place (from [facility]): No Exam/Review of Systems Vital Signs Vitals Vital Signs Date Temp Pulse Resp B/P (MAP) Pulse Ox O2 O2 Flow FiO2 Time Delivery Rate 01/16/19 71 20 98 Nasal 2.0 13:27 Cannula 01/16/19 97.8 140/68 12:37 (92) Intake and Output 01/15/19 01/15/19 01/16/19 1515:00 23:00 07:00 IntakeIntake Total 475 ml 550 ml OutputOutput Total 1200 ml BalanceBalance 475 ml -650 ml Results Result Diagram: 01/16/19 0605 01/16/19 0605 YOSI MARAVILLA MD Jan 16, 2019 14:33
--- NOTE | 2019-01-16 16:01 | DS ---
DATE OF ADMISSION: 01/10/2019 DATE OF DISCHARGE: 01/16/2019 FINAL DIAGNOSES: A 68-year-old male who was brought in for an elective right ankle arthrodesis which was done 01/09/2019 due to severe right osteoarthritis, who was admitted for routine postop care, bu t unfortunately, so far a complicated postoperative course. He was managed for the following medical problems: 1. Status post right ankle arthrodesis 01/09/2019. 2. Postoperative delirium thought to be toxic metabolic from medications, at this time, MRI is pendi ng to rule out a possible acute cerebrovascular accident as accompanying to this. 2. Postoperative urinary retention that has resolved. 3. History of coronary artery disease status post CABG, for which Plavix was held on this rapid hosp italization. Of note is that patient has no prior stent. 4. Postoperative ecchymosis, improved. 5. Hypertension with good control. 6. History of previous cerebrovascular accident, multiple. 7. Chronic depression and anxiety. 8. History of congestive heart failure, on Lasix therapy. 9. Chronic diabetes mellitus type 2 with good control. CONSULTS ON THE CASE: Multiple: 1. Cardiology, Dr. Kenn Howard. 2. Urology, Dr. Tyrone Arrieta. 3. Neurology, Dr. Jaz Charlton, 4. Dr. Kian Titus who was the original physician who admitted the patient for elective surgery for orthopedic surgery. DISPOSITION: The patient is currently going home with home health, physical therapy, speech therapy and occupational therapy. DISCHARGE DIET: Recommended diet is pureed diet at this time; however, with a pureed diet with a low sugar content. ACTIVITY: As tolerated. The patient is still nonweightbearing on his right ankle. FOLLOW UP: Dr. Titus will see patient in ____ home for evaluation of his cast and a routine followu p as per him. He is also encouraged to follow up with primary care doctor within the next week to en sure continued resolution of symptoms. SHORT HOSPITALIZATION COURSE: Full details are available in the chart for review. In summary, this is a 68-year-old man who was brought in for repair of the right ankle due to severe osteoarthritis, b ut did have a somewhat complicated prior medical history including previous strokes. Coronary artery disease, status post CABG and also a known hypertensive and diabetic. Initially consulted for manag ement of medical problems. The patient post-hospitalization, postsurgical course was complicated ini tially by urinary retention and subsequently severe delirium that required one-on-one monitoring and neurology review, as well as medication adjustment. This was thought to be secondary to medications, ____ previous CVA, and he is much improved at this time, but just to rule out an acute stroke contri buting to his symptoms, the patient is getting an MRI today. Today, he is doing much better. Unfort unately, he did have evidence of dysphagia and speech therapy had downgraded his diet. He is much mo re alert today and hopefully can be discharged on a pureed diet for now. This was thought to be seco ndary to psychotropic medications. At this time, the family has requested that he be discharged home as this is somewhat stable. His being in the hospital is limiting his improvement, I do understand that the patient is still quite devastated and ____ for a short period prior to going home, but at th is time they want to take him to their own home. It is my opinion that, even though the patient is s till somewhat debilitated, is stable to be at home with 24-hour care and home health for nursing, phy sical therapy, speech therapy as well as occupational therapy and once MRI is done, the patient is to be discharged to the care of his family with home health and the family does understand precautions on when to return to the Emergency Room or when to call 911. This has been reviewed with them in det ail. Questions have been answered. I have also spoken with the orthopedic surgeon and he will also review the patient prior to discharge. I have spoken with the neurologist and consulting cardiologis t as well. Time spent on discharge coordination so far has been more than an hour and a half. Dictated By: JORGE BOLANOS MD BA/NTS Conf#: [id number] DID#: [id number]
--- NOTE | 2019-01-16 19:01 | RADRPT ---
Vent Rate: 54 bpm RR Interval: 0 msec GA Interval: 168 msec QRS Duration: 110 msec QT Interval: 494 msec QTC Interval: 468 msec P-R-T [place]: 22 - -13 - [address] abnormality, possible digitalis effect Abnormal ECG Electronically Signed By: Kenn Howard
[2019-01-17] MEDS ORDERED: CLOPIDOGREL 75 MG TAB PO SCH (09:00)
== END 2019-01-16 16:32 | disposition home health service (06) | DRG 492 ==
LOC: SDS 05:37 → REC 12:49 → SDS 12:49 → MS1 12:50 → OBSVTOIN 01-10 16:40 → 6WM 01-13 20:08
PROVIDERS: ADMIT Family Medicine; ATTEND Family Medicine
PROC: 0SGF0KZ Fusion of Right Ankle Joint with Nonautologous Tissue Substitute, Open Approach (ICD-10-PCS; 2019-01-09)
PROC: 0SGF04Z Fusion of Right Ankle Joint with Internal Fixation Device, Open Approach (ICD-10-PCS; 2019-01-09)
PROC: 0JUQ0KZ Supplement of Right Foot Subcutaneous Tissue and Fascia with Nonautologous Tissue Substitute, Open Approach (ICD-10-PCS; 2019-01-09)
PROC: 0QB20ZZ Excision of Right Pelvic Bone, Open Approach (ICD-10-PCS; 2019-01-09)
PROC: 07DR0ZZ Extraction of Iliac Bone Marrow, Open Approach (ICD-10-PCS; 2019-01-09)
PROC: 0SGF07Z Fusion of Right Ankle Joint with Autologous Tissue Substitute, Open Approach (ICD-10-PCS; principal; 2019-01-09 07:30)
DX: M19.071 Primary osteoarthritis, right ankle and foot (principal); G92 Toxic encephalopathy; F05 Delirium due to known physiological condition; R07.9 Chest pain, unspecified; E83.42 Hypomagnesemia; E78.5 Hyperlipidemia, unspecified; E11.9 Type 2 diabetes mellitus without complications; F32.9 Major depressive disorder, single episode, unspecified; F41.9 Anxiety disorder, unspecified; G31.84 Mild cognitive impairment of uncertain or unknown etiology; I11.0 Hypertensive heart disease with heart failure; I50.9 Heart failure, unspecified; I25.10 Atherosclerotic heart disease of native coronary artery without angina pectoris; K59.00 Constipation, unspecified; M24.071 Loose body in right ankle; M65.871 Other synovitis and tenosynovitis, right ankle and foot; M11.262 Other chondrocalcinosis, left knee; M11.261 Other chondrocalcinosis, right knee; M25.669 Stiffness of unspecified knee, not elsewhere classified; N99.89 Other postprocedural complications and disorders of genitourinary system; R33.8 Other retention of urine; R58 Hemorrhage, not elsewhere classified; R13.10 Dysphagia, unspecified; T41.0X5A Adverse effect of inhaled anesthetics, initial encounter; Z86.73 Personal history of transient ischemic attack (TIA), and cerebral infarction without residual deficits; Z87.891 Personal history of nicotine dependence; Z95.1 Presence of aortocoronary bypass graft; Z79.84 Long term (current) use of oral hypoglycemic drugs; Z79.02 Long term (current) use of antithrombotics/antiplatelets; Z79.82 Long term (current) use of aspirin; Z79.83 Long term (current) use of bisphosphonates
CPT/HCPCS: 36600; 70450; 70551; 71045; 73560; 76856; 80048; 80053; 80061; 81001; 82140; 82306; 82803; 82962; 83036; 83735; 84100; 84153; 84154; 84443; 84484; 85025; 85610; 85730; 87086; 88304; 92526; 92610; 93005; 93306; 94640; 94664; 97110; 97163; 97164; 97167; 97530; 99217; A4310; G0378; J0131; J0360; J0690; J1170; J1630; J1644; J1815; J1885; J2060; J2250; J2405; J2765; J2795; J3010; J3475; J3480; J7042